=== PATIENT | male | born 1950 | race Caucasian/White ===

== ENCOUNTER 2016-11-27 19:52 | Inpatient (IN) | payer OTHER ==
[2016-11-27 20:25] LABS: Hematocrit 45 % (42-52); Hemoglobin 15.5 g/dl (14.0-18.0); Mean Corpuscular HGB Conc 34 g/dl (31-36); Mean Corpuscular Hemoglobin 30 pg (27-31); Mean Corpuscular Volume 89 fL (80-94); Mean Platelet Volume 7 um3 (7.4-10.4); Red Blood Count 5.13 10^6/ul (4.0-5.4); Red Cell Distribution Width 15 % (10.5-15); White Blood Count 7.3 10^3/ul (3.5-10.8)
[2016-11-27 20:33] LABS: Urine Bilirubin Negative (Negative); Urine Glucose Negative (Negative); Urine Nitrite Negative (Negative)
[2016-11-27 20:42] LABS: ALT 22 U/L (7-52); AST 27 U/L (13-39); Albumin 4.7 g/dL (3.2-5.2); Alkaline Phosphatase 49 U/L (34-104); Anion Gap 10 mmol/L (2-11); BUN/Creatinine Ratio 9.1 (8-20); Blood Urea Nitrogen 7 mg/dL (6-24); CO2 Carbon Dioxide 24 mmol/L (22-32); Calcium 9.6 mg/dL (8.6-10.3); Chloride 103 mmol/L (101-111); EGFR African American 130.8 (>60); EGFR Non-African American 101.7 (>60); Globulin 3.5 g/dL (2-4); Glucose 107 mg/dL (70-100); Potassium 3.8 mmol/L (3.5-5.0); Sodium 137 mmol/L (133-145); Total Protein 8.2 g/dL (6.4-8.9)
[2016-11-27] MEDS ORDERED: Ibuprofen TAB* 600 MG PO ONE (20:46)
[2016-11-27 20:48] LABS: Benzodiazepine Urine Screen Presumptive Positive (None Detect)
[2016-11-27 21:03] LABS: Acetaminophen < 15 mcg/mL; Alcohol 253 mg/dL (<10); Salicylate < 2.50 mg/dL (<30)
--- NOTE | 2016-11-27 22:59 | ED ---
Chandrika Davis Janilya, scribed for Bertrand Ennis MD on 11/27/16 at 2010 . Altered Mental Status - HPI Summary HPI Summary: A 66 y/o male came in to [facility] [place] [place] c/o depression and EtOH abuse. Pt states he had more than normal amount of EtOH today. He does admit he is an alcoholic, however he does not use any other substances. In addition, pt reports pain in lower back. - History Of Current Complaint Chief Complaint: EDMentalHealth Stated Complaint: LEG PAIN AND DEPRESSION Time Seen by Provider: 11/27/16 19:57 Hx Obtained From: Patient Timing: Constant, Lasting Hours Severity Initially: Moderate Severity Currently: Moderate Aggravating Factor(s): Nothing Alleviating Factor(s): Nothing - Allergies/Home Medications Allergies/Adverse Reactions: Allergies Allergy/AdvReac Type Severity Reaction Status Date / Time Acamprosate [From Campral] Allergy See Comment Verified 06/20/16 05:09 PMH/Surg Hx/FS Hx/Imm Hx Previously Healthy: Yes GI History: Reports: Other GI Disorders - Pt reports periods of incontinence, especially when withdrawing from alcoho Musculoskeletal History: Reports: Hx Arthritis - PER PT REPORT TO RIGHT LEG/KNEE Denies: Hx Osteoporosis Sensory History: Reports: Hx Cataracts, Hx Contacts or Glasses, Other Sensory Impairments - both eyes with lens implants Opthamlomology History: Reports: Hx Cataracts, Hx Contacts or Glasses, Other Sensory Impairments - both eyes with lens implants Psychiatric History: Reports: Hx Anxiety, Hx Depression, Hx Inpatient Treatment , Hx Community Mental Health Tx, Hx Suicide Attempt, Hx Substance Abuse Denies: Hx Eating Disorder, Hx of Violent Episodes Against Others - Surgical History Surgery Procedure, Year, and Place: Cataract x 2 - Family History Known Family History: Positive: Other - Anxiety, depression, EtOH abuse Family History: Hx of EtOH in family. - Social History Alcohol Use: Daily Alcohol Amount: 9 beer today Hx Substance Use: No Substance Use Type: Reports: None Substance Use Comment - Amount & Last Used: Pt is a chronic alcoholic Hx Tobacco Use: No Smoking Status (MU): Never Smoked Tobacco Review of Systems Positive: Arthralgia - lower back pain , Myalgia - lower back pain All Other Systems Reviewed And Are Negative: Yes Physical Exam Triage Information Reviewed: Yes Vital Signs On Initial Exam: Vital Signs (72 hours) 11/27/16 20:00 Temperature 98.2 F Pulse Rate 106 Respiratory 16 Rate Blood Pressure 154/77 (mmHg) O2 Sat by Pulse 94 Oximetry Vital Signs Reviewed: Yes Appearance: Positive: Well-Appearing, No Pain Distress Skin: Positive: Warm, Skin Color Reflects Adequate Perfusion, Dry Head/Face: Positive: Normal Head/Face Inspection Eyes: Positive: EOMI, SAMIR ENT: Positive: Normal ENT inspection Neck: Positive: Supple, Nontender Respiratory/Lung Sounds: Positive: Clear to Auscultation, Breath Sounds Present Cardiovascular: Positive: RRR Abdomen Description: Positive: Nontender, Soft Bowel Sounds: Positive: Present Musculoskeletal: Positive: Normal, Strength/ROM Intact Neurological: Positive: Normal, Sensory/Motor Intact, Alert, Oriented to Person Place, Time Psychiatric: Positive: Other - stuporous Diagnostics - Vital Signs Vital Signs Temp Pulse Resp BP Pulse Ox 11/27/16 20:00 98.2 F 106 16 154/77 94 - Laboratory Lab Results: Lab Results 11/27/16 11/27/16 11/27/16 Range/Units 20:15 20:15 20:20 WBC 7.3 (3.5-10.8) 10^3/ul RBC 5.13 (4.0-5.4) 10^6/ul Hgb 15.5 (14.0-18.0) g/dl Hct 45 (42-52) % MCV 89 (80-94) fL MCH 30 (27-31) pg MCHC 34 (31-36) g/dl RDW 15 (10.5-15) % Plt Count 269 (150-450) 10^3/ul MPV 7 L (7.4-10.4) um3 Neut % (Auto) 69.7 (38-83) % Lymph % (Auto) 20.6 L (25-47) % [place] % (Auto) 8.0 (1-9) % Eos % (Auto) 0.8 (0-6) % Baso % (Auto) 0.9 (0-2) % Absolute Neuts (auto) 5.1 (1.5-7.7) 10^3/ul Absolute Lymphs (auto) 1.5 (1.0-4.8) 10^3/ul Absolute Monos (auto) 0.6 (0-0.8) 10^3/ul Absolute Eos (auto) 0.1 (0-0.6) 10^3/ul Absolute Basos (auto) 0.1 (0-0.2) 10^3/ul Absolute Nucleated RBC 0 10^3/ul Nucleated RBC % 0.1 Sodium 137 (133-145) mmol/L Potassium 3.8 (3.5-5.0) mmol/L Chloride 103 (101-111) mmol/L Carbon Dioxide 24 (22-32) mmol/L Anion Gap 10 (2-11) mmol/L BUN 7 (6-24) mg/dL Creatinine 0.77 (0.67-1.17) mg/dL Est GFR ( Amer) 130.8 (>60) Est GFR (Non-Af Amer) 101.7 (>60) BUN/Creatinine Ratio 9.1 (8-20) Glucose 107 H (70-100) mg/dL Calcium 9.6 (8.6-10.3) mg/dL Total Bilirubin 0.40 (0.2-1.0) mg/dL AST 27 (13-39) U/L ALT 22 (7-52) U/L Alkaline Phosphatase 49 (34-104) U/L Total Protein 8.2 (6.4-8.9) g/dL Albumin 4.7 (3.2-5.2) g/dL Globulin 3.5 (2-4) g/dL Albumin/Globulin Ratio 1.3 (1-3) TSH 1.90 (0.34-5.60) mcIU/mL Urine Color Straw Urine Appearance Clear Urine pH 5.0 (5-9) Ur Specific [place] 1.001 L (1.010-1.030) Urine Protein Negative (Negative) Urine Ketones Negative (Negative) Urine Blood Negative (Negative) Urine Nitrate Negative (Negative) Urine Bilirubin Negative (Negative) Urine Urobilinogen Negative (Negative) Ur Leukocyte Esterase Negative (Negative) Urine Glucose Negative (Negative) Salicylates < 2.50 (<30) mg/dL Urine Opiates Screen (None Detect) Acetaminophen < 15 mcg/mL Ur Barbiturates Screen (None Detect) Ur Phencyclidine Scrn (None Detect) Ur Amphetamines Screen (None Detect) U Benzodiazepines Scrn (None Detect) Urine Cocaine Screen (None Detect) U Cannabinoids Screen (None Detect) Serum Alcohol 253 H (<10) mg/dL 02/15/17 Range/Units 20:20 WBC (3.5-10.8) 10^3/ul RBC (4.0-5.4) 10^6/ul Hgb (14.0-18.0) g/dl Hct (42-52) % MCV (80-94) fL MCH (27-31) pg MCHC (31-36) g/dl RDW (10.5-15) % Plt Count (150-450) 10^3/ul MPV (7.4-10.4) um3 Neut % (Auto) (38-83) % Lymph % (Auto) (25-47) % [place] % (Auto) (1-9) % Eos % (Auto) (0-6) % Baso % (Auto) (0-2) % Absolute Neuts (auto) (1.5-7.7) 10^3/ul Absolute Lymphs (auto) (1.0-4.8) 10^3/ul Absolute Monos (auto) (0-0.8) 10^3/ul Absolute Eos (auto) (0-0.6) 10^3/ul Absolute Basos (auto) (0-0.2) 10^3/ul Absolute Nucleated RBC 10^3/ul Nucleated RBC % Sodium (133-145) mmol/L Potassium (3.5-5.0) mmol/L Chloride (101-111) mmol/L Carbon Dioxide (22-32) mmol/L Anion Gap (2-11) mmol/L BUN (6-24) mg/dL Creatinine (0.67-1.17) mg/dL Est GFR ( Amer) (>60) Est GFR (Non-Af Amer) (>60) BUN/Creatinine Ratio (8-20) Glucose (70-100) mg/dL Calcium (8.6-10.3) mg/dL Total Bilirubin (0.2-1.0) mg/dL AST (13-39) U/L ALT (7-52) U/L Alkaline Phosphatase (34-104) U/L Total Protein (6.4-8.9) g/dL Albumin (3.2-5.2) g/dL Globulin (2-4) g/dL Albumin/Globulin Ratio (1-3) TSH (0.34-5.60) mcIU/mL Urine Color Urine Appearance Urine pH (5-9) Ur Specific [place] (1.010-1.030) Urine Protein (Negative) Urine Ketones (Negative) Urine Blood (Negative) Urine Nitrate (Negative) Urine Bilirubin (Negative) Urine Urobilinogen (Negative) Ur Leukocyte Esterase (Negative) Urine Glucose (Negative) Salicylates (<30) mg/dL Urine Opiates Screen None detected (None Detect) Acetaminophen mcg/mL Ur Barbiturates Screen None detected (None Detect) Ur Phencyclidine Scrn None detected (None Detect) Ur Amphetamines Screen None detected (None Detect) U Benzodiazepines Scrn Presumptive positive H (None Detect) Urine Cocaine Screen None detected (None Detect) U Cannabinoids Screen None detected (None Detect) Serum Alcohol (<10) mg/dL Result Diagrams: 11/27/16 20:15 11/27/16 20:15 Lab Statement: Any lab studies that have been ordered have been reviewed, and results considered in the medical decision making process. Altered Mental Statu Course/Dx - Course Assessment/Plan: STABLE IN ED. MHE PENDING AT SHIFT CHANGE. - Diagnoses Discharge Diagnoses: Mental health problem, Alcohol intoxication, Sciatica Discharge - Discharge Plan Condition: Stable Disposition: OTHER Discharge Disposition Comment: C The documentation as recorded by the Chandrika harris Janilya accurately reflects the service I personally performed and the decisions made by me, Bertrand Ennis MD.
[2016-11-28] MEDS ORDERED: Al Hydrox/Mg Hydrox/Simet LIQ* 30 ML UDC PO PRN (11:28)
[2016-11-28] MEDS ORDERED: Nicotine Inhaler* 10 MG AMP INH PRN (11:28)
[2016-11-28] MEDS ORDERED: Nicotine GUM* 2 MG PO PRN (11:28)
[2016-11-28] MEDS ORDERED: hydrOXYzine HCL TAB* 50 MG PO PRN (11:30)
--- NOTE | 2016-11-28 11:51 | ED ---
Supriya Davis Matthew, scribed for Sean Franklin MD on 11/28/16 at 0951 . Progress - Progress Note Progress Note: The patient was a sign out from Dr. Ennis. Voluntary admission paperwork was signed for the patient. He is in stable condition and will be admitted to [facility]. - Consult/PCP Time Called: 07:00 Course/Dx - Diagnoses Provider Diagnoses: mood disorder due to substance abuse The documentation as recorded by the Supriya harris Matthew accurately reflects the service I personally performed and the decisions made by , Sean Franklin MD.
[2016-11-28] MEDS ORDERED: LORazepam TAB(*) 1 MG PO ONE (12:44)
[2016-11-29] MEDS: Acetaminophen TAB* 325 MG PO PRN (08:11)
[2016-11-29] MEDS: Vitamin THERAPEUTIC TAB PO SCH (08:11)
[2016-11-29] MEDS ORDERED: Analgesic BALM* 114 GM TOPICAL PRN (14:44)
--- NOTE | 2016-11-29 15:17 | HP ---
DATE OF ADMISSION: 11/28/2016. JUSTIFICATION FOR ADMISSION: The patient is in need of 24 hour supervision and care secondary to suicidal ideations endorsed within 72 hours of admission date. CHIEF COMPLAINT: "I relapsed after a couple months sober and I need to go to a program in [place]." HISTORY OF PRESENT ILLNESS: The patient is a 66-year-old, single, white male with a history of chronic alcohol abuse who has had several admissions here at [facility] on our Behavioral Health Service who now returns to the hospital voluntarily seeking admission secondary to suicidal ideations. The patient indicates that he came to the hospital on a 9.41 status after presenting to the [facility] and stating that he had thoughts of drinking a bottle of alcohol and "going to sleep by [facility]." He has a history of multiple hospitalizations at [facility] as a result of suicidal ideation, all in the context of alcohol abuse. He apparently relapsed within the last week and had been drinking heavily and felt despondent, that he wanted to end his life. He was asking for admission due to not feeling stable and he felt like if he was discharge he would go back to drinking, and when he drinks he becomes suicidal. The patient is telling me at this point that he feels that this hospitalization will be short-term because he has found a program in [place] called the [facility] which can get him hooked up with [facility] as well as substance abuse treatment programming. He is complaining of pain in his leg due to a pinched nerve, but other than that he is calm, cooperative and demonstrating no behavioral problems. I did ask him about neurovegetative signs and symptoms of depression which he is currently denying. PAST PSYCHIATRIC HISTORY: The patient has several hospitalizations here at [facility], the most recent occurring in early July of 2016. He has never made a formal suicidal attempt according to the documentation. He has had over 15 admissions to our facility, as well as to other facilities in the [facility]. Apparently he has never maintained any consistent outpatient treatment. Medication management in the past has been with Celexa, Campral, and Antabuse; however, he is declining medication at this time. PAST MEDICAL HISTORY: Significant for arthritis and sciatic nerve pain. MEDICATIONS: Currently he is not on any medications. ALLERGIES: He states that he is ALLERGIC TO ACAMPROSATE. FAMILY PSYCHIATRIC HISTORY: Significant for substance abuse. No suicides or other mental disorders. SUBSTANCE USE HISTORY: Alcohol is the drug of his choice and this has been chronic. He started to drink at the age of 18 and it became a problem in his 20s with heavy drinking by the age of 32. This is essentially a daily activity when he has relapsed and he has had multiple brief medical hospitalizations for detoxification over the years. He has had negative consequences to drinking, including DWI, along with extensive psychosocial deterioration. He has had multiple formal inpatient rehabs and has been in residential sober settings several times over the years. His longest period of sobriety was approximately 13 months in the . When withdrawing from alcohol, he does have problems with seizures as well as delirium tremens. He denies the use of other drugs or illicit substances. He denies smoking cigarettes. SOCIAL HISTORY: Mr. Duran is originally from [place]. He has a brother and two sisters. Both of his parents are . He previously identified as upper middle class, but has been homeless and fairly destitute. His brother and sisters in the past were supportive. Growing up he played sports and developed normally, and he has had significant interpersonal relationships with friends and other relations. He identifies as heterosexual, but never and has no children. He has received unemployment benefits in the past. REVIEW OF SYSTEMS: The patient is denying any symptoms of acute alcohol withdrawal, saying he had only relapsed for a brief time before arriving for treatment. He denies headache or double vision. He denies sore throat, cough, chest pain, difficulty breathing. He denies abdominal pain, nausea, vomiting, or constipation. He denies difficulty ambulating, rashes, enlarged lymph nodes , fevers, or changes in weight. He does complain of back pain from sciatica. PHYSICAL EXAMINATION VITAL SIGNS: Blood pressure 111/75, heart rate 81, respiratory rate 16, temperature 98.5 degrees Fahrenheit, oxygen saturation 99 percent on room air. HEENT: Head is normocephalic, atraumatic. NECK: Supple. CHEST: Clear to auscultation bilaterally. CARDIAC: Exam reveals normal heart sounds. ABDOMEN: Soft and nontender. SKIN: Warm and dry. MUSCULOSKELETAL: Exam reveals no sign of edema. NEUROLOGIC: He is grossly intact with no focal deficits. LABORATORY DATA: Complete blood count is within normal limits as is the complete metabolic panel. Urinalysis is within normal limits. Urine drug screen is positive for benzodiazepines. His alcohol level on intact was 253. MENTAL STATUS EXAM: The patient is an aging white male with white hair. He is wearing green patient scrubs. He walks with a limp. He is clean and well- groomed. Speech has normal rate, tone and volume. Mood is euthymic with a full affect. Thought process is linear and goal directed. Thought content is significant for his desire to come into the hospital until he can be placed in a residential program on Friday at a facility in [place]. He is currently denying suicidal or homicidal ideations, although he endorsed them at the time of his intake in our emergency room. Insight and judgment are poor given his frequent relapses on alcohol. Cognitively, he is awake and alert with what would appear to be an average intellect. DIAGNOSES: AXIS I: Alcohol-induced mood disorder; alcohol use disorder. AXIS II: Deferred. AXIS III: Arthritis, sciatic nerve pain. AXIS IV: Severe, housing and financial stressors. AXIS V: At this time is 45. IMPRESSION: The patient is a 66-year-old, single, white male with a history of chronic alcohol dependence as well as alcohol-induced mood disorder who arrives complaining of depression and suicidality, and stating that he would not be safe if discharged from the hospital. He certainly does not appear to be depressed at this time and he is telling me that he has a place to go on Friday and would be expecting discharge at that time. It should be noted that malingering cannot be ruled out in this instance. PLAN: The patient is admitted to the Adult Behavioral Health Unit and placed on q.30 minute checks for his own safety. The patient will not need the WA protocol given the fact that his relapse has been very brief and his vitals look normal at this point. I will have the licensed clinical social worker delve into his housing arrangements and see that he gets hooked in with services in [place], which is what he is seeking at this time. I do not see the rationale for any medication strategies at this time as the patient mostly needs substance abuse treatment on an ongoing basis and a safe place to live. [id number]/[facility] #: [id number] PENNY
[2016-11-30] MEDS: Acetaminophen TAB* 325 MG PO PRN (10:10)
[2016-11-30] MEDS: Vitamin THERAPEUTIC TAB PO SCH (10:10)
[2016-12-01] MEDS: Vitamin THERAPEUTIC TAB PO SCH (08:29)
[2016-12-01] MEDS: Acetaminophen TAB* 325 MG PO PRN (17:07)
--- NOTE | 2016-12-01 20:20 | PN ---
Subjective - Subjective Subjective: Kayce endorses low distress level, improvements in previous mood and withdrawal symptoms, including anxiety. He denies suicidal ideation and he contracts for safety. He looks forward to return to the sober residential program in [place]. Per staff, he is adherent to unit's routines. Patient told there are two patients on the unit (did not disclose their names) who have tested positive for Influenza A and I am recommending taking Tamiflu as a prophylactic measure. I made it clear this was optional. He agreed to the treatment after hearing of the indications, risks, benefits and alternatives. Objective - Appearance Appearance: Obese Dysmorphic Features: No Hygiene: Normal Grooming: Well Kept - Behavior Psychomotor Activities: Normal Exhibits Abnormal Movement: No - Attitude and Relatedness Attitude and Relatedness: Cooperative Eye Contact: Good - Speech Quality: Unpressured Latencies: Normal Quantity: Appropriate - Mood Patient's Decription of Mood: better - Affect Observed Affect: Constricted Affect Consistent with: Dysphoria - Thought Process Patient's Thought Process: Coherent, Goal Directed Thought Content: No Passive Wish, No Suicidal Planning, No Homicidal Ideation, No Paranoid Ideation - Sensorium Experiencing Hallucinations: No, Sensorium is Clear - Level of Consciousness Level of Consciousness: Alert Orientation: Yes Intact - Impulse Control Impulse Control: Intact - Insight and Judgement Insight and Judgement: Fair - Group Participation Particating in Group Activities: Yes - Medication Management Medication Management Adherence: Yes Assessment - Assessment Merits Inpatient Hospitalization: Consolidate Improvements, For Discharge Planning Inpatient DSM-IV Dx: Alcxohol use disorder, severe. Clinical Impression: Progressing well through detoxification, remains motivated for sobriety, denying suicidality. Plan - Plan Treatment Plan: Name: KAYCE ORTEGA Birthdate: 1950 [id number] Continued Medication Management: Continue Outpt Medication Medications: Current Medications Acetaminophen (Tylenol Tab*) 650 mg PO Q4H PRN PRN Reason: for pain; or Temp >101 F Last Admin: 12/01/16 17:07 Dose: 650 mg Al Hydrox/Mg Hydrox/Simethicone (Maalox Plus*) 30 ml PO Q4H PRN PRN Reason: INDIGESTION Hydroxyzine HCl (Atarax Tab*) 50 mg PO Q6H PRN PRN Reason: AGITATION/ANXIETY/INSOMNIA Multi-Ingredient Liniment/Rub (Manohar Murphy*) 1 applic TOPICAL TID PRN PRN Reason: PAIN Multivitamins (Theragran Tab*) 1 tab PO DAILY YAS Last Admin: 12/01/16 08:29 Dose: 1 tab - Discharge Plan Discharge Plan: Drug/Alcohol Rehab - Sober living residential facility in [place].
[2016-12-02 07:36] VITALS: BP 138/82
[2016-12-02] MEDS: Acetaminophen TAB* 325 MG PO PRN (08:21)
[2016-12-02] MEDS: Vitamin THERAPEUTIC TAB PO SCH (08:21)
[2016-12-02] MEDS ORDERED: Oseltamivir CAP* 75 MG PO SCH (09:00)
--- NOTE | 2016-12-02 12:03 | DS ---
DATE OF ADMISSION: 11/28/2016. DATE OF DISCHARGE: 12/02/2016. DISCHARGE DIAGNOSES: AXIS I: Alcohol-induced mood disorder; alcohol use disorder. AXIS II: Deferred. AXIS III: Arthritis, sciatica nerve pain. AXIS IV: Severe, housing and financial stressors. AXIS V: At the time of admission was 45 and at the time of discharge is 60. CONDITION AT THE TIME OF DISCHARGE: Stable. The patient is denying suicidal ideations as he has done so for several days now. He is also denying thoughts or harming others. He is now sober from alcohol and intending to continue to abstain from this substance. Furthermore, we have hooked him up with residential treatment services at the [facility] in [place], [place]. There he will be receiving case management from [facility], as well as psychiatric and substance abuse rehabilitation services. The patient is future oriented, indicating that he wants to continue his life, move to [place] and establish a longer period of sobriety. MENTAL STATUS EXAMINATION AT THE TIME OF DISCHARGE: The patient is an aging white male with balding white hair. He is wearing green patient scrubs, walking with a slight limp. He is clean and well-groomed. Speech has a normal rate, tone and volume. Mood is euthymic with a full affect. Thought process is linear and goal directed. Thought content is significant for his desire to be discharged from the hospital. He is denying suicidal or homicidal ideations. Insight and judgment are fair given his willingness to follow-up with outpatient substance abuse treatment. Cognitively, he is awake and alert with what would appear to be an average intellect. DISCHARGE INSTRUCTIONS TO THE PATIENT: A. Medications: The patient is on Tamiflu 75 mg p.o. daily for the next ten days and then he will discontinue this. B. Diet: Regular. C. Activities: As tolerated. The patient is a nonsmoker. D. Follow-up care: The patient is to follow-up at the [facility]. His intake will be there this afternoon, 12/02/2016. HOSPITAL COURSE - PART A: Reason for admission: The patient is a 66-year-old, single, white male with a history of chronic alcohol abuse who has had several admissions here at [facility] to our behavioral health service who now returns to the hospital voluntarily seeking admission secondary to suicidal ideations. The patient indicates that he came to the hospital on a 9.41 status after presenting to the [facility] and stating that he had thoughts of drinking a bottle of alcohol and "going to sleep by [facility]." He has a history of multiple hospitalizations at [facility] as a result of suicidal ideation, all in the context of alcohol abuse. He apparently relapsed within the last week and had been drinking heavily and felt despondent that he wanted to end his life. He was asking for admission due to not feeling stable and he felt like if he was discharged, he would go back to drinking and when he drinks he becomes suicidal. The patient was telling me at that point that he felt that hospitalization would be short-term because he had found a program in [place] called the [facility] which can get him hooked up with [facility], as well as substance abuse treatment programming. He was complaining of pain in his leg due to a pinched nerve, but other than this he was calm, cooperative, and demonstrating no behavioral problems. I did ask him about neurovegetative signs and symptoms of depression, which he is currently denying. HOSPITAL COURSE - PART B: Psychiatric treatment rendered: The patient was admitted to the Adult Behavioral Health Unit and placed on q.30 minute checks for his own safety. Other than some topical treatment with Bengay for pain his legs, he did not require medication therapy and we did not feel that his depression was likely amenable to antidepressants, largely because it was a byproduct of his substance abuse. Later, the patient had an exposure to a peer was found to have influenza. For this reason he accepted prophylactic Tamiflu at the dose of 75 mg daily. We were able to contact the [facility] and they confirmed that he has a scheduled intake for December 02. He remained free of suicidal ideations over the weekend and is now discharged in stable condition. Throughout his stay he never represented any behavioral problems on the unit. [id number]/[facility] #: [id number] PENNY
== END 2016-12-02 13:00 | disposition home or self-care (01) | DRG 775 ==
LOC: ED 19:52 → BSU 11-28 14:06
PROVIDERS: ADMIT Psychiatry & Neurology Psychiatry; ATTEND Psychiatry & Neurology Psychiatry
DX: F10.14 Alcohol abuse with alcohol-induced mood disorder (principal); R45.851 Suicidal ideations; F10.129 Alcohol abuse with intoxication, unspecified; M54.5 Low back pain; M79.606 Pain in leg, unspecified; Y90.8 Blood alcohol level of 240 mg/100 ml or more; M19.90 Unspecified osteoarthritis, unspecified site; M54.30 Sciatica, unspecified side; Z88.8 Allergy status to other drugs, medicaments and biological substances; Z81.1 Family history of alcohol abuse and dependence
CPT/HCPCS: 36415; 80053; 80307; 80320; 80329; 81003; 84443; 85025; 99222; 99238; 99282; A9270-GY; G0480

== ENCOUNTER 2017-03-08 20:13 | Inpatient (IN) | payer MEDICAID, OTHER ==
[2017-03-08 20:56] LABS: Hematocrit 43 % (42-52); Hemoglobin 14.3 g/dl (14.0-18.0); Mean Corpuscular HGB Conc 34 g/dl (31-36); Mean Corpuscular Hemoglobin 30 pg (27-31); Mean Corpuscular Volume 89 fL (80-94); Mean Platelet Volume 7 um3 (7.4-10.4); Red Blood Count 4.77 10^6/ul (4.0-5.4); Red Cell Distribution Width 14 % (10.5-15); White Blood Count 5.3 10^3/ul (3.5-10.8)
[2017-03-08 21:00] LABS: Urine Bilirubin Negative (Negative); Urine Glucose Negative (Negative); Urine Nitrite Negative (Negative)
[2017-03-08 21:09] LABS: ALT 17 U/L (7-52); AST 22 U/L (13-39); Albumin 4.4 g/dL (3.2-5.2); Alkaline Phosphatase 40 U/L (34-104); Anion Gap 11 mmol/L (2-11); BUN/Creatinine Ratio 9.5 (8-20); Blood Urea Nitrogen 7 mg/dL (6-24); CO2 Carbon Dioxide 19 mmol/L (22-32); Calcium 9.1 mg/dL (8.6-10.3); Chloride 102 mmol/L (101-111); EGFR African American 136.9 (>60); EGFR Non-African American 106.5 (>60); Globulin 3.2 g/dL (2-4); Glucose 90 mg/dL (70-100); Potassium 3.9 mmol/L (3.5-5.0); Sodium 132 mmol/L (133-145); Total Protein 7.6 g/dL (6.4-8.9)
[2017-03-08 21:17] LABS: Benzodiazepine Urine Screen None Detected (None Detect)
[2017-03-08 21:39] LABS: Acetaminophen < 15 mcg/mL; Alcohol 217 mg/dL (<10); Salicylate < 2.50 mg/dL (<30)
--- NOTE | 2017-03-08 21:46 | ED ---
Kannan Davsi SooYoung, scribed for Balaji Potts MD on 03/08/17 at 2043 . Psychiatric Complaint - HPI Summary HPI Summary: A 66 y/o M SAGAR presents to ED with SI onset today. Pt states he is on a new medication, and he's feeling unstable. He has been drinking a lot today. Pt wants help, to go to rehab. Pert PMHx: suicide attempt, depression, EtOH abuse. - History Of Current Complaint Chief Complaint: EDMentalHealth Time Seen by Provider: 03/08/17 20:21 Hx Obtained From: Patient, EMS Onset/Duration: Still Present Timing: Constant Severity Initially: Moderate Severity Currently: Moderate Aggravating Factor(s): Alcohol Use Related History: Positive For: Prior Psychiatric Issues Has Suicidal: Reports: Thoughts - Allergies/Home Medications Allergies/Adverse Reactions: Allergies Allergy/AdvReac Type Severity Reaction Status Date / Time Acamprosate [From Campral] Allergy See Comment Verified 06/20/16 05:09 Home Medications: Home Medications Acetaminophen TAB* [Tylenol TAB*] 650 mg PO Q4H PRN 03/09/17 [History Confirmed 03/09/17] Amlodipine Besylate [Norvasc 10 mg tab] 10 mg PO DAILY 03/09/17 [History Confirmed 03/09/17] Folic Acid TAB* [Folvite TAB*] 1 mg PO DAILY 03/09/17 [History Confirmed ] Gabapentin CAP(*) [Neurontin 100 mg CAP(*)] 200 mg PO TID 03/09/17 [History Confirmed 03/09/17] Ibuprofen TAB* [Motrin TAB* 800 MG] 800 mg PO TID 03/09/17 [History Confirmed ] Thiamine TAB* [Vitamin B-1 TAB*] 100 mg PO DAILY 03/09/17 [History Confirmed ] PMH/Surg Hx/FS Hx/Imm Hx Previously Healthy: No GI History: Reports: Other GI Disorders - Pt reports periods of incontinence, especially when withdrawing from alcoho Musculoskeletal History: Reports: Hx Arthritis - PER PT REPORT TO RIGHT LEG/KNEE Denies: Hx Osteoporosis Sensory History: Reports: Hx Cataracts, Hx Contacts or Glasses, Other Sensory Impairments - both eyes with lens implants Opthamlomology History: Reports: Hx Cataracts, Hx Contacts or Glasses, Other Sensory Impairments - both eyes with lens implants Psychiatric History: Reports: Hx Anxiety, Hx Depression, Hx Inpatient Treatment , Hx Community Mental Health Tx, Hx Suicide Attempt, Hx Substance Abuse Denies: Hx Eating Disorder, Hx of Violent Episodes Against Others - Surgical History Surgery Procedure, Year, and Place: Cataract x 2 Infectious Disease History: No Infectious Disease History: Denies: Traveled Outside the [place] in Last 30 Days - Family History Known Family History: Positive: Other - Anxiety, depression, EtOH abuse Family History: Hx of EtOH in family. - Social History Occupation: Unemployed Lives: Alone Alcohol Use: Daily Alcohol Amount: 18 coors lights since this AM Hx Substance Use: No Substance Use Type: Reports: None Substance Use Comment - Amount & Last Used: Pt is a chronic alcoholic Hx Tobacco Use: No Smoking Status (MU): Never Smoked Tobacco Review of Systems Negative: Fever Psychological: Other - pos: SI Positive: Depressed All Other Systems Reviewed And Are Negative: Yes Physical Exam Triage Information Reviewed: Yes Vital Signs On Initial Exam: Initial Vitals Temp Pulse Resp BP Pulse Ox 99.2 F 89 18 176/92 95 03/08/17 20:25 03/08/17 20:25 03/08/17 20:25 03/08/17 20:25 03/08/17 20:25 Vital Signs Reviewed: Yes Appearance: Positive: Well-Appearing, No Pain Distress - aob Skin: Positive: Warm Head/Face: Positive: Normal Head/Face Inspection Eyes: Positive: SAMIR ENT: Positive: Hearing grossly normal Neck: Positive: Supple Respiratory/Lung Sounds: Positive: Breath Sounds Present Cardiovascular: Positive: RRR Abdomen Description: Positive: Nontender, Soft Bowel Sounds: Positive: Present Musculoskeletal: Positive: Strength/ROM Intact Neurological: Positive: Alert, Oriented to Person Place, Time Psychiatric: Positive: Affect/Mood Appropriate - Sharon Coma Scale Coma Scale Total: 15 Diagnostics - Vital Signs Vital Signs Temp Pulse Resp BP Pulse Ox 03/08/17 20:25 99.2 F 89 18 176/92 95 - Laboratory Lab Results: Lab Results 03/08/17 03/08/17 03/08/17 Range/Units 20:45 20:45 20:50 WBC 5.3 (3.5-10.8) 10^3/ul RBC 4.77 (4.0-5.4) 10^6/ul Hgb 14.3 (14.0-18.0) g/dl Hct 43 (42-52) % MCV 89 (80-94) fL MCH 30 (27-31) pg MCHC 34 (31-36) g/dl RDW 14 (10.5-15) % Plt Count 257 (150-450) 10^3/ul MPV 7 L (7.4-10.4) um3 Neut % (Auto) 60.2 (38-83) % Lymph % (Auto) 27.6 (25-47) % Childress % (Auto) 9.2 H (1-9) % Eos % (Auto) 2.0 (0-6) % Baso % (Auto) 1.0 (0-2) % Absolute Neuts (auto) 3.2 (1.5-7.7) 10^3/ul Absolute Lymphs (auto) 1.5 (1.0-4.8) 10^3/ul Absolute Monos (auto) 0.5 (0-0.8) 10^3/ul Absolute Eos (auto) 0.1 (0-0.6) 10^3/ul Absolute Basos (auto) 0.1 (0-0.2) 10^3/ul Absolute Nucleated RBC 0 10^3/ul Nucleated RBC % 0 Sodium 132 L (133-145) mmol/L Potassium 3.9 (3.5-5.0) mmol/L Chloride 102 (101-111) mmol/L Carbon Dioxide 19 L (22-32) mmol/L Anion Gap 11 (2-11) mmol/L BUN 7 (6-24) mg/dL Creatinine 0.74 (0.67-1.17) mg/dL Est GFR ( Amer) 136.9 (>60) Est GFR (Non-Af Amer) 106.5 (>60) BUN/Creatinine Ratio 9.5 (8-20) Glucose 90 (70-100) mg/dL Calcium 9.1 (8.6-10.3) mg/dL Total Bilirubin 0.40 (0.2-1.0) mg/dL AST 22 (13-39) U/L ALT 17 (7-52) U/L Alkaline Phosphatase 40 (34-104) U/L Total Protein 7.6 (6.4-8.9) g/dL Albumin 4.4 (3.2-5.2) g/dL Globulin 3.2 (2-4) g/dL Albumin/Globulin Ratio 1.4 (1-3) TSH Pending Urine Color Straw Urine Appearance Clear Urine pH 5.0 (5-9) Ur Specific [place] 1.002 L (1.010-1.030) Urine Protein Negative (Negative) Urine Ketones Negative (Negative) Urine Blood Negative (Negative) Urine Nitrate Negative (Negative) Urine Bilirubin Negative (Negative) Urine Urobilinogen Negative (Negative) Ur Leukocyte Esterase Negative (Negative) Urine Glucose Negative (Negative) Salicylates < 2.50 (<30) mg/dL Urine Opiates Screen (None Detect) Acetaminophen < 15 mcg/mL Ur Barbiturates Screen (None Detect) Ur Phencyclidine Scrn (None Detect) Ur Amphetamines Screen (None Detect) U Benzodiazepines Scrn (None Detect) Urine Cocaine Screen (None Detect) U Cannabinoids Screen (None Detect) Serum Alcohol 217 H (<10) mg/dL 03/08/17 Range/Units 20:50 WBC (3.5-10.8) 10^3/ul RBC (4.0-5.4) 10^6/ul Hgb (14.0-18.0) g/dl Hct (42-52) % MCV (80-94) fL MCH (27-31) pg MCHC (31-36) g/dl RDW (10.5-15) % Plt Count (150-450) 10^3/ul MPV (7.4-10.4) um3 Neut % (Auto) (38-83) % Lymph % (Auto) (25-47) % Childress % (Auto) (1-9) % Eos % (Auto) (0-6) % Baso % (Auto) (0-2) % Absolute Neuts (auto) (1.5-7.7) 10^3/ul Absolute Lymphs (auto) (1.0-4.8) 10^3/ul Absolute Monos (auto) (0-0.8) 10^3/ul Absolute Eos (auto) (0-0.6) 10^3/ul Absolute Basos (auto) (0-0.2) 10^3/ul Absolute Nucleated RBC 10^3/ul Nucleated RBC % Sodium (133-145) mmol/L Potassium (3.5-5.0) mmol/L Chloride (101-111) mmol/L Carbon Dioxide (22-32) mmol/L Anion Gap (2-11) mmol/L BUN (6-24) mg/dL Creatinine (0.67-1.17) mg/dL Est GFR ( Amer) (>60) Est GFR (Non-Af Amer) (>60) BUN/Creatinine Ratio (8-20) Glucose (70-100) mg/dL Calcium (8.6-10.3) mg/dL Total Bilirubin (0.2-1.0) mg/dL AST (13-39) U/L ALT (7-52) U/L Alkaline Phosphatase (34-104) U/L Total Protein (6.4-8.9) g/dL Albumin (3.2-5.2) g/dL Globulin (2-4) g/dL Albumin/Globulin Ratio (1-3) TSH Urine Color Urine Appearance Urine pH (5-9) Ur Specific [place] (1.010-1.030) Urine Protein (Negative) Urine Ketones (Negative) Urine Blood (Negative) Urine Nitrate (Negative) Urine Bilirubin (Negative) Urine Urobilinogen (Negative) Ur Leukocyte Esterase (Negative) Urine Glucose (Negative) Salicylates (<30) mg/dL Urine Opiates Screen None detected (None Detect) Acetaminophen mcg/mL Ur Barbiturates Screen None detected (None Detect) Ur Phencyclidine Scrn None detected (None Detect) Ur Amphetamines Screen None detected (None Detect) U Benzodiazepines Scrn None detected (None Detect) Urine Cocaine Screen None detected (None Detect) U Cannabinoids Screen None detected (None Detect) Serum Alcohol (<10) mg/dL Result Diagrams: 03/08/17 20:45 03/08/17 20:45 Lab Statement: Any lab studies that have been ordered have been reviewed, and results considered in the medical decision making process. Course/Dx - Course Course Of Treatment: UA is nml with specific gravity 1.002. Toxicology is negative, serum alcohol is 217. Medically cleared for MHE 0200. - Differential Dx/Clinical Impression Provider Diagnosis: Suicidal thoughts - Physician Notifications Instructed by Provider To: Admit As Inpatient Discharge - Discharge Plan Condition: Fair Disposition: ADMITTED TO [facility] documentation as recorded by the Kannan harris,Treag accurately reflects the service I personally performed and the decisions made by me, Balaji Potts MD.
[2017-03-08 21:49] LABS: TSH (Thyroid Stimulating Horm) 1.92 mcIU/mL (0.34-5.60)
[2017-03-09] MEDS ORDERED: Al Hydrox/Mg Hydrox/Simet LIQ* 30 ML UDC PO PRN (05:14)
[2017-03-09] MEDS ORDERED: Mouth Piece, Nicotine* 1 EACH CARTRIDGE INH SCH (05:14)
[2017-03-09] MEDS ORDERED: Nicotine Inhaler* 10 MG AMP INH PRN (05:14)
[2017-03-09] MEDS ORDERED: Acetaminophen TAB* 325 MG PO PRN (05:14)
[2017-03-09] MEDS: Thiamine TAB* 100 MG TAB PO SCH (07:37)
[2017-03-09] MEDS: amLODIPine TAB* 5 MG PO SCH (07:37)
[2017-03-09] MEDS: Ibuprofen TAB* 800 MG PO PRN (07:38)
[2017-03-09] MEDS: Gabapentin CAP(*) 100 MG PO SCH ×3 (07:38→20:02)
[2017-03-09] MEDS: Vitamin THERAPEUTIC TAB PO SCH (07:38)
[2017-03-09] MEDS: Folic Acid TAB* 1 MG PO SCH (07:38)
--- NOTE | 2017-03-09 14:19 | HP ---
Amended report to enter cosignature on report. INITIAL PSYCHIATRIC ASSESSMENT: The supervising psychiatrist for this assessment is . DATE OF ADMISSION: 03/09/17 IDENTIFYING INFORMATION: The patient is a 66-year-old white male who was admitted to this facility on 03/09/17. Admitting status is voluntary. The patient was seen and examined. The chart was reviewed and the case was discussed with Dr. Tobin who concurred with assessment and plan. The patient had presented to the emergency department with fleeting suicidal ideation. He stated that he had conjured a plan to overdose using his prescription Norvasc and consuming alcohol. He reports that he saw buttonhole tacker and revealed his plan to them. He had had a period of sobriety, but apparently began drinking approximately 8 days ago, this was after a period of approximately 3 months of sobriety per the patient's self report. He stated that there was a breakup in his family secondary to somebody who had and apparently in the will, he felt that was, as he stated, "gypped out of money." He stated that approximately 2 days ago, he began having very negative dreams and suicidal ideation came about. He reports that he has been masking his emotions and he has had a lot of anger at himself. He is currently denying alcohol withdrawal symptoms and stated that he usually does not have problems with DT after only 8 days of drinking. PAST PSYCHIATRIC HISTORY: This patient has a rather extensive history of hospitalizations here at [facility], most recent occurring in November of 2016. He has had over 16 admissions here. He has never actually made a formal suicide attempt per review of documentation. He has also been admitted to other facilities in the [facility] per the record of Dr. Edgar Lara in his history and physical dated 11/28/16. The patient has never maintained any type of consistent outpatient treatment. 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 MEDICATIONS: He is currently not on any psychotropic medications. ALLERGIES: There is mention of an allergy to ACAMPROSATE. However, it is not clear if this represents true allergy. FAMILY PSYCHIATRIC HISTORY: Significant for substance abuse on his mother and father's side. He states that he did have a grandfather who was at times ill- tempered toward others. SUBSTANCE USE HISTORY: Alcohol is the patient's primary addictive disorder. He began drinking approximately at age 18, stated that his drinking became a problem in his 20s with heavy drinking by the age of 32. 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 In the , he was arrested for a DWI. He also has a history of multiple inpatient rehabs as well as involvement with AA. His longest period of sobriety was apparently 13 months in the . In the past with alcohol withdrawal, however, he does have problems with seizures as well as delirium tremens. He currently denies use of any other illicit substances and he does not smoke cigarettes per self report. PSYCHOSOCIAL HISTORY: Mr. Duran is from [place]. He has 1 brother and 2 sisters. Both parents are . He reports that he is homeless at this point because the people who owned the house where he was staying apparently recently sold the house. He has never been . He has no children. He is retired. He does report having a small pension. 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 REVIEW OF SYSTEMS: The patient is currently denying any symptoms of alcohol withdrawal. No tremor noted. He again is asserting that he has only had a brief relapse 8 days prior to treatment. He denies headache, dizziness, syncope , changes in hearing or vision. Denies difficulty chewing or swallowing. Denies chest pain or palpitations. Denies nausea, vomiting, or diarrhea. Denies shortness of breath. Denies difficulty urinating. Denies numbness or tingling in the fingers or toes. Denies any pain anywhere. Review of laboratory data undertaken at this time, the following abnormals are noted. MPV is low at 7, monocyte percentage is elevated at 9.2. Chemistry studies demonstrate a low sodium of 132, carbon dioxide is low at 19. Urine specific gravity is low at 1.002, and urine toxicology demonstrated a serum alcohol level of 217. PHYSICAL EXAMINATION VITAL SIGNS: Cardiac rate is 75, blood pressure is 136/81. HEENT: Head is normocephalic, atraumatic. NECK: Appears normal on inspection. HEART: S1 and S2 are present. No rubs, gallops, or murmurs are grossly appreciated. ABDOMEN: Soft, nondistended, nontender. Bowel sounds are active in all 4 quadrants. MUSCULOSKELETAL: The patient demonstrates full range of motion. His extremities are nonedematous. NEUROLOGICALLY: He is alert and oriented x3 with no focal neuro deficits. SKIN: Intact, warm and dry. MENTAL STATUS EXAMINATION: The patient is of average build and appears his stated age with overall good grooming and hygiene noted. On gross examination, he appears to have no physical deformities. His attitude toward the examiner was pleasant and cooperative. He does ambulate with a steady gait. Posture fairly erect. He did not appear to be demonstrating any noteworthy mannerisms, gestures or tics. No circumoral tremor or hand tremor was appreciated. Activity patterns were within normal parameters with no overt evidence of psychomotor excitation or retardation appreciated. He is alert and oriented x3. Speech was clear, coherent, goal directed and spontaneous. He rarely made eye contact throughout the clinical interview. Self-reported mood is depressed. He rated his depression at the time of his admission yesterday as a 9/10 on the 1/10 scale, in which 10 represents the most depressed he has ever felt. He is self reporting his depression today as 5/10 on the 1/10 scale. His affect is consistent to self-reported mood. He is denying visual or auditory hallucinations. No overt delusion or paranoid thought processes readily apparent. Impulse control, of course, is problematic surrounding substance use. Intellectual ability, general fund of knowledge is roughly average. Concentration and attention appear grossly intact. The patient is currently denying suicidal and/or homicidal ideation. He is future oriented. CLINICAL IMPRESSION: This is a 66-year-old patient with a rather extensive history of alcohol use disorder, who had relapsed after a period of approximately 3 months of sobriety. He self reports feeling despondent over his relapse and had developed suicidal ideation. He was admitted on a voluntary basis for symptom stabilization. At this time, he is asking for rehab at either [facility] or [facility]. He has been admitted, of course, for stabilization of symptoms. ADMITTING DIAGNOSIS: Alcohol use disorder, rule out major depressive disorder, rule out generalized anxiety disorder. PLAN OF TREATMENT: Admit to behavior services unit. Diet will be regular. Vital signs per unit protocol. Activity as tolerated with restrictions to the unit. The patient will participate in treatment planning activities, individual , group, and milieu therapy, as well as medication management sessions and discharge planning until he is stable or referred to a higher level of care. TREATMENT GOAL: Stabilization. PROGNOSIS: Fair. ESTIMATED LENGTH OF STAY: 3 to 5 days. DISCHARGE CRITERIA: The patient will be discharged when he is no longer a risk to himself or others and has met the criteria set forth by the treatment team for discharge. This assessment was reviewed with, and initial plan of care established by Dr. Carpio. RICHIE RESENDIZ NP [id number]/[facility] #: [id number] PENNY
[2017-03-10] MEDS: Gabapentin CAP(*) 100 MG PO SCH ×3 (08:36→20:12)
[2017-03-10] MEDS: Vitamin THERAPEUTIC TAB PO SCH (08:36)
[2017-03-10] MEDS: Folic Acid TAB* 1 MG PO SCH (08:37)
[2017-03-10] MEDS: Thiamine TAB* 100 MG TAB PO SCH (08:37)
[2017-03-10] MEDS: amLODIPine TAB* 5 MG PO SCH (08:37)
--- NOTE | 2017-03-10 11:43 | PN ---
Subjective - Subjective Service Type: 28373 Hosp care 15 min low complexity Subjective: Kayce denies any withdrawal symptoms from alcohol, denies any continued suicidal ideation or other dangerous intent/plan, denies any psychotic experience, and denies any physical complaints/distress. He is looking forward to discharge to [facility] in [place] with rehab services from [facility], and medical follow ups for tate's cyst and other issues. He has these plans all clearly itemized on one page that he says he will review with social work staff on Friday. He request 30 minute checks and computer privileges to check email. Objective - Appearance Appearance: Healthy Appearing Dysmorphic Features: No Hygiene: Normal Grooming: Well Kept - Behavior Psychomotor Activities: Normal Exhibits Abnormal Movement: No - Attitude and Relatedness Attitude and Relatedness: Cooperative Eye Contact: Good - Speech Quality: Unpressured Latencies: Normal Quantity: Appropriate - Mood Patient's Decription of Mood: "A lot better - I'm coming out of the fog. - Affect Observed Affect: Good Affect Consistent with: Euthymia - Thought Process Patient's Thought Process: Coherent, Goal Directed Thought Content: No Passive Wish, No Suicidal Planning, No Homicidal Ideation, No Paranoid Ideation - Sensorium Experiencing Hallucinations: No, Sensorium is Clear Type of Hallucinations: Visual: No, Auditory: No, Command: No - Level of Consciousness Level of Consciousness: Alert Orientation: Yes Intact, Yes Orientated to Time, Yes Orientated to Place, Yes Orientated to Person - Impulse Control Impulse Control: Intact - Insight and Judgement Insight and Judgement: Fair - Group Participation Particating in Group Activities: Yes Group Participation Comments: attended AA - Medication Management Medication Management Adherence: Yes Assessment - Assessment Merits Inpatient Hospitalization: For Stabilization, Consolidate Improvements, For Discharge Planning Inpatient DSM-IV Dx: Alcohol Use Disorder, Severe. Rule out MDD, VITA Clinical Impression: Kayce Duran is a 66-year-old man who has been admitted for safety concerns raised by report in ED of plan to kill himself with Norvasc and alcohol. He is well known to us from many admissions here in the context of recalcitrant alcohol use disorder with reports of mood disturbance and suicidality. [facility] follow-up care in [place]. He does not want an antidepressant. He is group and med compliant. Plan - Plan Treatment Plan: Name: KAYCE DURAN Birthdate: 1950 [id number] Monitor MS and safety, including alcohol withdrawal symptoms (none so far, neither subjectively nor objectively, with VSS). Encourage groups and milieu. Plan toward discharge with planning offered by patient. Continued Medication Management: Continue Outpt Medication Medications: Current Medications Acetaminophen (Tylenol Tab*) 650 mg PO Q4H PRN PRN Reason: PAIN or TEMP > 101 F Al Hydrox/Mg Hydrox/Simethicone (Maalox Plus*) 30 ml PO Q4H PRN PRN Reason: INDIGESTION Amlodipine Besylate (Norvasc Tab*) 10 mg PO DAILY [facility] Last Admin: 03/10/17 08:37 Dose: 10 mg Device (Nicotine Mouth Piece*) 1 each INH .[facility] Folic Acid (Folvite Tab*) 1 mg PO DAILY [facility] Last Admin: 03/10/17 08:37 Dose: 1 mg Gabapentin (Neurontin Cap(*)) 200 mg PO TID [facility] Last Admin: 03/10/17 08:36 Dose: 200 mg Ibuprofen (Motrin Tab*) 800 mg PO TID PRN PRN Reason: PAIN Last Admin: 03/09/17 07:38 Dose: 800 mg Multivitamins (Theragran Tab*) 1 tab PO DAILY [facility] Last Admin: 03/10/17 08:36 Dose: 1 tab Nicotine (Nicotine Inhaler*) 10 mg INH Q2H PRN PRN Reason: CRAVING Thiamine HCl (Vitamin B-1 Tab*) 100 mg PO DAILY [facility] Last Admin: 03/10/17 08:37 Dose: 100 mg - Discharge Plan Discharge Plan: Outpatient Follow Up Outpatient Program: providers in [place] per pt plan
[2017-03-11] MEDS: Gabapentin CAP(*) 100 MG PO SCH ×3 (07:51→20:13)
[2017-03-11] MEDS: amLODIPine TAB* 5 MG PO SCH (07:51)
[2017-03-11] MEDS: Thiamine TAB* 100 MG TAB PO SCH (07:52)
[2017-03-11] MEDS: Folic Acid TAB* 1 MG PO SCH (07:52)
[2017-03-11] MEDS: Vitamin THERAPEUTIC TAB PO SCH (07:52)
[2017-03-11] MEDS: Ibuprofen TAB* 800 MG PO PRN (07:53)
--- NOTE | 2017-03-11 11:26 | PN ---
Subjective - Subjective Service Type: 01600 Hosp care 15 min low complexity Subjective: Kayce reports "doing okay" with a good unit experience so far. Denies distress and reports feeling good about being alive. Has a plan for aftercare and is forward thinking. Objective - Appearance Appearance: Well Developed/Nourished Hygiene: Normal Grooming: Well Kept - Behavior Psychomotor Activities: Normal - Attitude and Relatedness Attitude and Relatedness: Superficially Cooperative Eye Contact: Good - Speech Quality: Unpressured Latencies: Normal Quantity: Appropriate - Mood Patient's Decription of Mood: "Anxious" - Affect Observed Affect: Non-labile Affect Consistent with: Euthymia - Thought Process Patient's Thought Process: Coherent Thought Content: No Passive Wish, No Suicidal Planning, No Homicidal Ideation, No Paranoid Ideation - Sensorium Experiencing Hallucinations: No, Sensorium is Clear - Level of Consciousness Level of Consciousness: Alert - Impulse Control Impulse Control: Intact - Insight and Judgement Insight and Judgement: Fair Assessment - Assessment Merits Inpatient Hospitalization: To Initiate Treatment, For Ongoing Evaluation , Consolidate Improvements, For Discharge Planning, Pending Safe DC Plan Inpatient DSM-IV Dx: Alcohol Use Disorder, Severe. Rule out MDD, VITA Clinical Impression: 66-year-old homeless male with a history of severe chronic alcohol dependence, numerous psychiatric hospitalizations, and previous para-suicidal behavior. He was admitted after coming to the ED by ambulance, reporting alcohol relapse, and expressing some ideas of overdosing. This was another alcohol-induced crisis. Stabilizing again here. Clinically is improving with correction of un-manageable mood symptoms and absence of ongoing suicidal ideation. Medication management defers antidepressant at his preference and provides gabapentin. He has not required detoxification on this episode. Anticipate discharge to substance crisis program in coming days. Plan - Plan Treatment Plan: Name: KAYCE ORTEGA Birthdate: 1950 [id number] Medications: Current Medications Acetaminophen (Tylenol Tab*) 650 mg PO Q4H PRN PRN Reason: PAIN or TEMP > 101 F Al Hydrox/Mg Hydrox/Simethicone (Maalox Plus*) 30 ml PO Q4H PRN PRN Reason: INDIGESTION Amlodipine Besylate (Norvasc Tab*) 10 mg PO DAILY [facility] Last Admin: 03/11/17 07:51 Dose: 10 mg Device (Nicotine Mouth Piece*) 1 each INH .[facility] Folic Acid (Folvite Tab*) 1 mg PO DAILY [facility] Last Admin: 03/11/17 07:52 Dose: 1 mg Gabapentin (Neurontin Cap(*)) 200 mg PO TID [facility] Last Admin: 03/11/17 07:51 Dose: 200 mg Ibuprofen (Motrin Tab*) 800 mg PO TID PRN PRN Reason: PAIN Last Admin: 03/11/17 07:53 Dose: 800 mg Multivitamins (Theragran Tab*) 1 tab PO DAILY [facility] Last Admin: 03/11/17 07:52 Dose: 1 tab Nicotine (Nicotine Inhaler*) 10 mg INH Q2H PRN PRN Reason: CRAVING Thiamine HCl (Vitamin B-1 Tab*) 100 mg PO DAILY [facility] Last Admin: 03/11/17 07:52 Dose: 100 mg - Discharge Plan Discharge Plan: Drug/Alcohol Rehab
[2017-03-11] MEDS: Analgesic BALM* 114 GM TOPICAL SCH ×2 (12:28→20:15)
[2017-03-12] MEDS: Ibuprofen TAB* 800 MG PO PRN (08:27)
[2017-03-12] MEDS: Thiamine TAB* 100 MG TAB PO SCH (08:27)
[2017-03-12] MEDS: Folic Acid TAB* 1 MG PO SCH (08:28)
[2017-03-12] MEDS: Gabapentin CAP(*) 100 MG PO SCH ×3 (08:28→20:13)
[2017-03-12] MEDS: amLODIPine TAB* 5 MG PO SCH (08:28)
[2017-03-12] MEDS: Analgesic BALM* 114 GM TOPICAL SCH ×2 (08:30→20:16)
--- NOTE | 2017-03-12 10:44 | PN ---
Subjective - Subjective Service Type: 92177 Hosp care 15 min low complexity Subjective: Kayce reports "doing great" and notes better mood and outlook. Affirms he will be safe. He is eager for discharge to [place] and sees it as a good plan. Denied withdrawal or somatic concerns. Objective - Appearance Appearance: Well Developed/Nourished Hygiene: Normal Grooming: Well Kept - Behavior Psychomotor Activities: Normal - Attitude and Relatedness Attitude and Relatedness: Superficially Cooperative Eye Contact: Good - Speech Quality: Unpressured Latencies: Normal Quantity: Appropriate - Mood Patient's Decription of Mood: "Anxious" - Affect Observed Affect: Non-labile Affect Consistent with: Euthymia - Thought Process Patient's Thought Process: Coherent, Goal Directed Thought Content: No Passive Wish, No Suicidal Planning, No Homicidal Ideation, No Paranoid Ideation - Sensorium Experiencing Hallucinations: No, Sensorium is Clear - Level of Consciousness Level of Consciousness: Alert - Impulse Control Impulse Control: Intact - Insight and Judgement Insight and Judgement: Fair Assessment - Assessment Merits Inpatient Hospitalization: For Ongoing Evaluation, Consolidate Improvements, For Discharge Planning Inpatient DSM-IV Dx: Alcohol Use Disorder, Severe. Rule out MDD, VITA Clinical Impression: 66-year-old homeless male with a history of severe chronic alcohol dependence, numerous psychiatric hospitalizations, and previous para-suicidal behavior. He was admitted after coming to the ED by ambulance, reporting alcohol relapse, and expressing some ideas of overdosing. This was another alcohol-induced crisis. Stabilized again here. Clinically is improved with correction of un-manageable mood symptoms and absence of ongoing suicidal ideation. Medication management defers antidepressant at his preference and provides gabapentin. He has not required detoxification on this episode. This was another substance induced crisis and it is resolved. Plan discharge for tomorrow to substance crisis program. Plan - Plan Treatment Plan: Name: KAYCE ORTEGA Birthdate: 1950 [id number] Medications: Current Medications Acetaminophen (Tylenol Tab*) 650 mg PO Q4H PRN PRN Reason: PAIN or TEMP > 101 F Al Hydrox/Mg Hydrox/Simethicone (Maalox Plus*) 30 ml PO Q4H PRN PRN Reason: INDIGESTION Amlodipine Besylate (Norvasc Tab*) 10 mg PO DAILY [facility] Last Admin: 03/12/17 08:28 Dose: 10 mg Device (Nicotine Mouth Piece*) 1 each INH .[facility] Folic Acid (Folvite Tab*) 1 mg PO DAILY [facility] Last Admin: 03/12/17 08:28 Dose: 1 mg Gabapentin (Neurontin Cap(*)) 200 mg PO TID [facility] Last Admin: 03/12/17 08:28 Dose: 200 mg Ibuprofen (Motrin Tab*) 800 mg PO TID PRN PRN Reason: PAIN Last Admin: 03/12/17 08:27 Dose: 800 mg Multi-Ingredient Liniment/Rub (Manohar Murphy*) 1 applic TOPICAL BID [facility] Last Admin: 03/12/17 08:30 Dose: Not Given Multivitamins (Theragran Tab*) 1 tab PO DAILY [facility] Last Admin: 03/11/17 07:52 Dose: 1 tab Nicotine (Nicotine Inhaler*) 10 mg INH Q2H PRN PRN Reason: CRAVING Thiamine HCl (Vitamin B-1 Tab*) 100 mg PO DAILY [facility] Last Admin: 03/12/17 08:27 Dose: 100 mg - Discharge Plan Discharge Plan: Drug/Alcohol Rehab
[2017-03-12] MEDS: Vitamin THERAPEUTIC TAB PO SCH (11:53)
[2017-03-13] MEDS: Folic Acid TAB* 1 MG PO SCH ×2 (06:45→08:33)
[2017-03-13] MEDS: Thiamine TAB* 100 MG TAB PO SCH ×2 (06:45→08:34)
[2017-03-13] MEDS: Gabapentin CAP(*) 100 MG PO SCH ×2 (06:45→08:33)
[2017-03-13] MEDS: Vitamin THERAPEUTIC TAB PO SCH ×2 (06:45→08:34)
[2017-03-13] MEDS: amLODIPine TAB* 5 MG PO SCH ×2 (06:45→08:33)
[2017-03-13 08:01] VITALS: BP 146/78
[2017-03-13] MEDS: Analgesic BALM* 114 GM TOPICAL SCH (08:33)
--- NOTE | 2017-03-13 10:22 | DS ---
Subjective - Subjective Discharge Date: 03/13/17 Subjective: Cooper left earlier this morning, and his discharge was not complicated. Per nursing: "Patient alert and oriented upon discharge, calm, cooperative and in behavioral control. Patient exhibited good eye contact and was able to make his needs known effectively. Patient verbalized readiness for discharge and denied further need to remain in the hospital for safety. Patient denied feeling depressed and denied suicidal ideation or planning." Treatment Course & Assessment Clinical Course & Impression: 66-year-old homeless male with a history of severe chronic alcohol dependence, numerous psychiatric hospitalizations, and previous para-suicidal behavior. He was admitted after coming to the ED by ambulance, reporting alcohol relapse, and expressing some ideas of overdosing. This was another alcohol-induced crisis. 03/13/17 Clear for release. Cooper stabilized again here. Clinically he fully improved with correction of un-manageable mood symptoms and absence of ongoing suicidal ideation. Medication management deferred antidepressant at his preference and provided gabapentin. He did not require detoxification on this episode. This was another substance induced crisis and it is resolved. Risk concern centered on suicidal ideation. Chronic risk factors are Cooper's prior behaviors, and his depressive symptom pattern in the setting of active substance use, along with his demographics. Protective factors are the absence of ongoing active suicidal ideation, absence of current impairment, his very low current symptom burden, and his general pattern of help seeking behavior. Substance relapse is likely based on his historic pattern. Relapse could raise suicide risk or risk of inadvertent harm. Clear for Discharge: Adequate Clinical Respons, Acceptable Safety Profile, Low Utility of In Care Inpatient DSM-IV Dx: Alcohol Use Disorder, Severe. Rule out MDD, VITA Discharge Planning - Discharge Planning Discharge Plan: Outpatient Follow Up - [facility] clinic Recommendations for Continuing Care: Medication Management, Substance Abuse Counseling, Primary Care Followup Medications: Acetaminophen (Tylenol Tab*) 650 mg PO Q4H PRN PRN Reason: PAIN or TEMP > 101 F Amlodipine Besylate (Norvasc Tab*) 10 mg PO DAILY [facility] Last Admin: 03/12/17 08:28 Dose: 10 mg Folic Acid (Folvite Tab*) 1 mg PO DAILY [facility] Last Admin: 03/12/17 08:28 Dose: 1 mg Gabapentin (Neurontin Cap(*)) 200 mg PO TID [facility] Last Admin: 03/12/17 08:28 Dose: 200 mg Ibuprofen (Motrin Tab*) 800 mg PO TID PRN PRN Reason: PAIN Last Admin: 03/12/17 08:27 Dose: 800 mg Nicotine (Nicotine Inhaler*) 10 mg INH Q2H PRN PRN Reason: CRAVING Thiamine HCl (Vitamin B-1 Tab*) 100 mg PO DAILY [facility] Last Admin: 03/12/17 08:27 Dose: 100 mg Discharge Planning: Prescriptions provided for discharge [] Yes [x] No Follow up care details as per social work arrangements. Patient response to discharge plan: [x] eager for discharge [] agreeable with discharge plan [] ambivalent about discharge [] disagrees with discharge today
== END 2017-03-13 08:20 | disposition home or self-care (01) | DRG 775 ==
LOC: ED 20:13 → BSU 03-09 04:29
PROVIDERS: ADMIT Psychiatry & Neurology Psychiatry; ATTEND Psychiatry & Neurology Psychiatry
DX: F10.10 Alcohol abuse, uncomplicated (principal); R45.851 Suicidal ideations; Y90.7 Blood alcohol level of 200-239 mg/100 ml; F41.1 Generalized anxiety disorder; M19.90 Unspecified osteoarthritis, unspecified site; M54.30 Sciatica, unspecified side; I10 Essential (primary) hypertension; M71.21 Synovial cyst of popliteal space [Baker], right knee; Z88.8 Allergy status to other drugs, medicaments and biological substances; Z81.1 Family history of alcohol abuse and dependence
CPT/HCPCS: 36415; 80053; 80307; 80320; 80329; 81003; 84443; 85025; 99222; 99231; 99238; A9270-GY; G0480

== ENCOUNTER 2018-05-20 17:42 | Inpatient (IN) | payer MEDICAID, MEDICARE ==
[2018-05-20] MEDS ORDERED: Thiamine TAB* 100 MG TAB PO ONE (18:27)
[2018-05-20] MEDS ORDERED: Folic Acid TAB* 1 MG PO ONE (18:27)
[2018-05-20 18:37] LABS: ABS Basophils 0.1 10^3/ul (0-0.2); ABS Eosinophils 0 10^3/ul (0-0.6); ABS Lymphocytes 1.8 10^3/ul (1.0-4.8); ABS Monocytes 0.4 10^3/ul (0-0.8); ABS Neutrophils 4.5 10^3/ul (1.5-7.7); ABS Nucleated RBC 0 10^3/ul; Eosinophil % 0.3 % (0-6); Hematocrit 45 % (42-52); Hemoglobin 15.4 g/dl (14.0-18.0); Lymphocyte % 26.1 % (25-47); Mean Corpuscular HGB Conc 34 g/dl (31-36); Mean Corpuscular Hemoglobin 30 pg (27-31); Mean Corpuscular Volume 89 fL (80-94); Nucleated Red Blood Cells % 0.3; Platelet Count 314 10^3/ul (150-450); Red Blood Count 5.05 10^6/ul (4.00-5.40); Red Cell Distribution Width 14 % (10.5-15); White Blood Count 6.8 10^3/ul (3.5-10.8)
--- NOTE | 2018-05-20 18:37 | ED ---
Psychiatric Complaint - HPI Summary HPI Summary: This is scribe Anthony Atkins documenting for attending Dr. Tyrell Dang. This patient is a 67 year old M presenting to [facility] with a chief complaint of SI with plan to take his pills and drink since 1400. Pt claims he has been sober for over a year, until his recent 3 day monge. Today, pt was drinking in [facility] all day, when sx started; pt endorses drinking 7 Coors lights and 4 vodka mixed drinks. Pt endorses rx Norvasc and Neurontin. PMHx HTN, ruptured disk, anxiety, and depression. Pt endorsed withdrawal, then when asked about it he redacted his comment. SHx 2 cataract surgeries. I, Dr. Santillan personally performed the services described in this documentation as scribed in my presence and it is both accurate and complete. - History Of Current Complaint Chief Complaint: EDMentalHealth Time Seen by Provider: 05/20/18 18:20 Hx Obtained From: Patient Onset/Duration: Sudden Onset, Lasting Hours, Still Present Timing: Constant Severity Initially: Moderate Severity Currently: Moderate Character: Depressed, Anxious Aggravating Factor(s): Alcohol Use - and recent relapse Alleviating Factor(s): Nothing Related History: Positive For: Prior Psychiatric Issues, Admissions Related To Substance Abuse Has Suicidal: Reports: Thoughts, With A Plan, Has Prior Attempt(s) Has Homicidal: Denies: Thoughts Ingestion History: Type/Name Of Drug - EtOH, Amount Ingested - 11 drinks, Approximate Time Of Ingestion - since 1400 - Allergies/Home Medications Allergies/Adverse Reactions: Allergies Allergy/AdvReac Type Severity Reaction Status Date / Time MS Acamprosate [From Irasburgral] Allergy See Comment Verified 05/20/18 17:57 PMH/Surg Hx/FS Hx/Imm Hx Endocrine/Hematology History: Denies: Hx Sickle Cell Disease Cardiovascular History: Reports: Hx Hypertension GI History: Reports: Other GI Disorders - Pt reports periods of incontinence, especially when withdrawing from alcoho History: Denies: Hx Dialysis Musculoskeletal History: Reports: Hx Arthritis - PER PT REPORT TO RIGHT LEG/KNEE Denies: Hx Osteoporosis Sensory History: Reports: Hx Cataracts, Other Sensory Impairments - both eyes with lens implants Denies: Hx Contacts or Glasses, Hx Legally Blind, Hx Deafness, Hx Hearing Aid Opthamlomology History: Reports: Hx Cataracts, Other Sensory Impairments - both eyes with lens implants Denies: Hx Contacts or Glasses, Hx Legally Blind EENT History: Denies: Hx Deafness Psychiatric History: Reports: Hx Anxiety, Hx Depression, Hx Inpatient Treatment , Hx Community Mental Health Tx, Hx Suicide Attempt, Hx Substance Abuse Denies: Hx Eating Disorder, Hx of Violent Episodes Against Others - Surgical History Surgery Procedure, Year, and Place: Cataract x 2 Infectious Disease History: No Infectious Disease History: Denies: Traveled Outside the [place] in Last 30 Days - Family History Known Family History: Positive: Other - Anxiety, depression, EtOH abuse Family History: Hx of EtOH in family. - Social History Occupation: Unemployed Lives: Alone Alcohol Use: Daily Alcohol Amount: started 6-pack/day, moving up to up to 12 pack day over 8 day period Hx Substance Use: No Substance Use Type: Reports: None Substance Use Comment - Amount & Last Used: Pt is a chronic alcoholic Hx Tobacco Use: No Smoking Status (MU): Never Smoked Tobacco Review of Systems Positive: Other - EtOH intoxication. Negative: Fever Positive: no symptoms reported Positive: Anxious, Depressed, Other - SI with plan All Other Systems Reviewed And Are Negative: Yes Physical Exam - Summary Physical Exam Summary: VITAL SIGNS: Reviewed. GENERAL: Patient is a well-developed and nourished male who is lying comfortable in the stretcher. Patient is not in any acute respiratory distress. Smells of alcohol on his breath. HEAD AND FACE: No signs of trauma. No ecchymosis, hematomas or skull depressions. No sinus tenderness. EYES: PERRLA, EOMI x 2, No injected conjunctiva, no nystagmus. EARS: Hearing grossly intact. Ear canals and tympanic membranes are within normal limits. MOUTH: Oropharynx within normal limits. NECK: Supple, trachea is midline, no adenopathy, no JVD, no carotid bruit, no c- spine tenderness, neck with full ROM. CHEST: Symmetric, no tenderness at palpation LUNGS: Clear to auscultation bilaterally. No wheezing or crackles. CVS: Regular rate and rhythm, S1 and S2 present, no murmurs or gallops appreciated. ABDOMEN: Soft, non-tender. No signs of distention. No rebound no guarding, and no masses palpated. Bowel sounds are normal. EXTREMITIES: FROM in all major joints, no edema, no cyanosis or clubbing. NEURO: Alert and oriented x 3. No acute neurological deficits. Speech is normal and follows commands. SKIN: Dry and warm Triage Information Reviewed: Yes Vital Signs On Initial Exam: Initial Vitals Temp Pulse Resp BP Pulse Ox 98.4 F 141 20 134/100 93 05/20/18 17:50 05/20/18 17:50 05/20/18 17:50 05/20/18 17:50 05/20/18 17:50 Vital Signs Reviewed: Yes Diagnostics - Vital Signs Vital Signs Temp Pulse Resp BP Pulse Ox 05/20/18 17:50 98.4 F 141 20 134/100 93 - Laboratory Result Diagrams: 05/20/18 18:27 05/20/18 18:27 Lab Statement: Any lab studies that have been ordered have been reviewed, and results considered in the medical decision making process. Course/Dx - Differential Dx/Clinical Impression Differential Diagnosis/HQI/PQRI: Positive: Alcohol Intoxication Provider Diagnosis: Alcohol intoxication Discharge - Sign-Out/Discharge Documenting (check all that apply): Sign-Out Patient Signing out patient TO: Carlos A Alfred - BECKY Cantu - Discharge Plan Referrals: Non Staff,Doctor [Medical Doctor] -
[2018-05-20 18:53] LABS: EGFR Non-African American 107.8 (>60)
--- NOTE | 2018-05-20 19:05 | ED ---
Progress - Progress Note Progress Note: This is scribe Domingo Solis documenting for attending Ольга Alfred MD. This patient is a 67 year old M presenting to [facility] with a chief complaint of SI with plan to take his pills and drink since 14:00. This patient was received from Dr. Santillan during a shift change and signed out to Dr. Alfred. I, Dr. Alfred, personally performed the services described in this documentation as scribed in my presence and it is both accurate and complete. Course/Dx - Course Course Of Treatment: Patient was cleared for MHE. Now admitted to Mental Health with Stoney Link MD for alcohol induced mood disorder. - Diagnoses Provider Diagnoses: Alcohol intoxication, Alcohol-induced mood disorder Discharge - Sign-Out/Discharge Documenting (check all that apply): Receiving Sign-Out Signing out patient TO: Carlos A Alfred Receiving patient FROM: Matthew Santillan - Waiting for patient to be cleared for MHE. - Discharge Plan Condition: Stable Disposition: ADMITTED TO [facility] Referrals: Non Staff,Doctor [Medical Doctor] -
[2018-05-20 19:17] LABS: Urine Appearance Clear; Urine Blood 1+ (Negative); Urine Color Colorless; Urine Ketones Negative (Negative); Urine Protein Negative (Negative); Urine Red Blood Cell Trace(0-2/hpf) (Absent); Urine Specific Gravity 1.002 (1.010-1.030); Urine Urobilinogen Negative (Negative); Urine White Blood Cell Absent (Absent)
[2018-05-21] MEDS ORDERED: Gabapentin CAP(*) 100 MG PO ONE (01:26)
[2018-05-21] MEDS ORDERED: LORazepam TAB(*) 1 MG ONE (04:59)
[2018-05-21] MEDS ORDERED: Acetaminophen TAB* 325 MG PO PRN (05:19)
[2018-05-21] MEDS ORDERED: Al Hydrox/Mg Hydrox/Simet LIQ* 30 ML UDC PO PRN (05:19)
[2018-05-21] MEDS ORDERED: LORazepam IM 0-6 mg for WAM protocol IM SCH (06:00)
[2018-05-21] MEDS: Gabapentin CAP(*) 100 MG PO SCH ×3 (07:39→21:09)
[2018-05-21] MEDS: LORazepam PO 0-6 for WAM protocol PO SCH ×2 (07:40→09:01)
[2018-05-21] MEDS: amLODIPine TAB* 5 MG PO SCH (07:40)
[2018-05-21] MEDS: Folic Acid TAB* 1 MG PO SCH (07:41)
[2018-05-21] MEDS: Thiamine TAB* 100 MG TAB PO SCH (07:41)
--- NOTE | 2018-05-21 17:01 | HP ---
HISTORY AND PHYSICAL: DATE OF ADMISSION: 05/21/18 PROVIDER: Christelle Parra NP, in Psychiatry SUPERVISING PHYSICIAN: Edgar Lara MD * (DICTATED BY CHRISTELLE PARRA NP ) JUSTIFICATION FOR ADMISSION: The patient is in need of 24-hour supervision and care secondary to suicidal ideation. CHIEF COMPLAINT: "I want to take all my Norvasc and drink a lot and go and fall asleep by the alcazar." HISTORY OF PRESENT ILLNESS: The patient is a 67-year-old single white man with a history of alcohol abuse, who arrives, brought by a taxi cab and on a voluntary status, after determining that he was going to refill his medication and take it all while drinking alcohol. This is a very common story for "Robert" as he has been to this hospital almost 20 times for the same presentation. He was in [place] and sober for a year, but he went to [place], became intoxicated with his brother, and ended up in [place] where he is a frequent resident and continued drinking. He called his AA sponsor while he was thinking of suicide and decided that he should come to the hospital. At this point, his sleep is disrupted as is typical in alcohol abuse. While he has some guilt, he is also proud that he came to the hospital. His appetite is fine. His speech is circumstantial and he was having suicidal ideation but he is not anymore. PAST PSYCHIATRIC HISTORY: As I said he has been admitted almost 20 times to the [facility] and has been discharged as many times to both outpatient rehab and homeless shelters. He denies history of violence. Denies access to weapons. Denies a traumatic past. Denies a traumatic brain injury, although he does have a dominga on his head at this point from being scraped when he slipped in the shower. He has previously taken Celexa but he does not want to take that at this time. Currently, he is taking Norvasc, naproxen, and gabapentin. PAST MEDICAL HISTORY: 1. He has sciatic pain. 2. He has hypertension. 3. He has apparently ruptured disk in his back. ALLERGIES: He states he is allergic to CAMPRAL. It is unclear whether this is a true allergy or something that he just simply did not like. FAMILY HISTORY: He is unclear about this. He just say that mom and dad were drinkers. He states that his brother may have bipolar disorder and is chemically addicted. The other brother drinks alcohol as well, although I do not know how heavy drinker he is and his sister, Beverley, he did not mention whether she uses substances or has any psychiatric illnesses. SUBSTANCE ABUSE: He is an alcohol user. He had 7 Coors Lights (which he considers reasonable amount) and some vodka drinks before his arrival at the hospital. He does have an AA sponsor. He does not smoke cigarettes. He does not use other drugs. SOCIAL HISTORY: He has 2 brothers and a sister. The farthest away is his brother in [place]. He has another brother who lives on [address]. He was employed. He is unable to give a good history of his employment at this time. He has no legal problems at this time. REVIEW OF SYSTEMS: The patient reports feeling fatigued. He denies shortness of breath, heat or cold intolerance, chest pain or abdominal pain. He denies neurological symptoms. He denies fevers or changes in weight. PHYSICAL EXAMINATION On 05/21/18, at 08:56 in the morning, his temperature was 98.6, pulse 112, respirations 18, O2 sat on room air is 97, blood pressure 126/67. For further exam data, please see emergency department records. LABORATORY DATA: Most data were normal. The exception being his MPV little low at 7. His urine specific gravity was low at 1.002. There is blood present in his urine and his serum alcohol was 240. MENTAL STATUS EXAM: This is somewhat short man who is averagely built. He has a very close shaved head with silvery sorensen hair. He has a dominga on his head from where he slipped in the shower but it appears only be a scrape. His grooming is adequate. He is slightly hypokinetic perhaps because he is using a cane, perhaps because he does not want to fall. He is calm and cooperative. His speech is normal rate, tone, and volume. It is circumstantial. He appears to be euthymic. He has a full range of affect. His thought processes are normal. His thought content is clear and logical, if circumstantial. He is not homicidal or suicidal. He is not experiencing hallucinations of any kind. His insight is fair. His judgement is fair. His cognition, he is alert and awake, but he does seem slightly unable to answer questions succinctly. This is inconsistent with what Tricia Ness LCSW, is used to seeing in his presentation during other hospitalizations. DIAGNOSIS: [place] I: Alcohol induced depressive disorder. IMPRESSION: This is a 67-year-old man who comes to the hospital in a nearly identical presentation to those in the past and with suicidal ideation that relatively quickly clears up with sobriety. PLAN: The patient is admitted to the adult behavioral health unit and placed on 15 minute checks for his own safety. He is encouraged to participate in supportive milieu, individual and group therapies. Estimated length of stay is 3 to 5 days. We will be employing the [facility] protocol to deal with his alcohol withdrawal. Discharge planning will include family involvement and outpatient providers. CHRISTELLE PARRA, AUDELIA [id number]/CPS #: [id number] PENNY
[2018-05-22] MEDS: LORazepam PO 0-6 for WAM protocol PO SCH ×2 (05:53→12:53)
[2018-05-22] MEDS: amLODIPine TAB* 5 MG PO SCH (08:57)
[2018-05-22] MEDS: Folic Acid TAB* 1 MG PO SCH (08:58)
[2018-05-22] MEDS: Thiamine TAB* 100 MG TAB PO SCH (08:58)
[2018-05-22] MEDS: Gabapentin CAP(*) 100 MG PO SCH ×3 (08:59→23:58)
--- NOTE | 2018-05-22 14:08 | PN ---
Subjective - Subjective Date of Service: 05/22/18 Service Type: [id number] Hosp care 15 min low complexity Subjective: Robert is spending most of the day in bed as he is not feeling well physically. He believes the detoxification of his body from alcohol is particularly difficult for him this time. He has scored on the WAM and has received Ativan. A MoCA was performed and he did not do particularly well on it, scoring only 19/ 30. He struggled with visuospatial and executive function, attention, and language. He was fully oriented to time and date. Objective - Appearance Appearance: Healthy Appearing Dysmorphic Features: No Hygiene: Normal Grooming: Well Kept - Behavior Psychomotor Activities: Normal Exhibits Abnormal Movement: No - Attitude and Relatedness Attitude and Relatedness: Cooperative Eye Contact: Good - Speech Quality: Unpressured Latencies: Normal Quantity: Appropriate - Mood Patient's Decription of Mood: "Okay" - Affect Observed Affect: Fair Affect Consistent with: Dysphoria - Thought Process Patient's Thought Process: Coherent, Circumstantial Thought Content: No Passive Wish, No Suicidal Planning, No Homicidal Ideation, No Paranoid Ideation - Sensorium Experiencing Hallucinations: No, Sensorium is Clear Type of Hallucinations: Visual: No, Auditory: No, Command: No - Level of Consciousness Level of Consciousness: Lethargic Orientation: Yes Intact, Yes Orientated to Time, Yes Orientated to Place, Yes Orientated to Person - Impulse Control Impulse Control: Intact - Insight and Judgement Insight and Judgement: Fair - Group Participation Particating in Group Activities: No - Medication Management Medication Management Adherence: Yes - Additional Observations Comments: Kayce is tired today and appears to have wanted to stay in bed for this reason. He has eaten meals with his peers. It seems that his cognition is somewhat impaired, based on the MoCA test, but he does not perceive it. Assessment - Assessment Merits Inpatient Hospitalization: For Immediate Safety, For Stabilization, For Discharge Planning Inpatient DSM-V Dx: F10.24 Clinical Impression: Kayce is motivated to go to rehab and wants to do research to find out where he can go. He is psychiatrically stable at this time. Plan - Plan Treatment Plan: Name: KAYCE ORTEGA Birthdate: 1950 [id number] Continued Medication Management: Consider Medication Medications: Current Medications Acetaminophen (Tylenol Tab*) 650 mg PO Q4H PRN PRN Reason: PAIN or TEMP > 101 F Al Hydrox/Mg Hydrox/Simethicone (Maalox Plus*) 30 ml PO Q4H PRN PRN Reason: INDIGESTION Amlodipine Besylate (Norvasc Tab*) 10 mg PO DAILY [facility] Last Admin: 05/22/18 08:57 Dose: 10 mg Folic Acid (Folvite Tab*) 1 mg PO DAILY [facility] Last Admin: 05/22/18 08:58 Dose: 1 mg Gabapentin (Neurontin Cap(*)) 200 mg PO TID [facility] Last Admin: 05/22/18 08:59 Dose: 200 mg Lorazepam (Ativan Tab(*)) 0 - 6 mg PO .[facility] PARAMETERS [facility]; Protocol Last Admin: 05/22/18 12:53 Dose: 2 mg Lorazepam (Ativan Inj*) 0 - 6 mg IM .[facility] PROTOCOL [facility]; Protocol Naproxen (Naprosyn Tab*) 500 mg PO DAILY PRN PRN Reason: PAIN Thiamine HCl (Vitamin B-1 Tab*) 100 mg PO DAILY [facility] Last Admin: 05/22/18 08:58 Dose: 100 mg - Discharge Plan Discharge Plan: Drug/Alcohol Rehab Additional Comments: Kayce wants to go to inpatient rehabilitation for alcohol use. We are helping him accomplish this goal.
[2018-05-22] MEDS: Naproxen TAB* 250 MG PO PRN (14:16)
[2018-05-23] MEDS: LORazepam PO 0-6 for WAM protocol PO SCH (06:00)
[2018-05-23] MEDS: Gabapentin CAP(*) 100 MG PO SCH ×4 (06:16→21:28)
[2018-05-23] MEDS: amLODIPine TAB* 5 MG PO SCH (09:17)
[2018-05-23] MEDS: Thiamine TAB* 100 MG TAB PO SCH (09:17)
[2018-05-23] MEDS: Folic Acid TAB* 1 MG PO SCH (09:17)
[2018-05-23] MEDS ORDERED: Loperamide CAP* 2 MG PO ONE (13:30)
[2018-05-23] MEDS ORDERED: Loperamide CAP* 2 MG PO PRN (13:32)
[2018-05-23] MEDS: Naproxen TAB* 250 MG PO PRN (14:25)
[2018-05-24] MEDS: amLODIPine TAB* 5 MG PO SCH (08:29)
[2018-05-24] MEDS: Folic Acid TAB* 1 MG PO SCH (08:29)
[2018-05-24] MEDS: Gabapentin CAP(*) 100 MG PO SCH ×3 (08:30→20:17)
[2018-05-24] MEDS: Thiamine TAB* 100 MG TAB PO SCH (08:31)
[2018-05-24] MEDS: Naproxen TAB* 250 MG PO PRN (08:32)
--- NOTE | 2018-05-24 13:08 | PN ---
Subjective - Subjective Date of Service: 05/24/18 Service Type: 58999 Hosp care 15 min low complexity Subjective: Kayce continues to remain isolative spending great deal of time in bed at times sleeping may be due to receiving Lorazepam on [place]. He denies any withdrawals today and appears more alert. Says his mood is good without any negative thoughts including SI. Reading the AA book for his next meeting tomorrow. Denies hallucinations or delusions. Objective - Appearance Appearance: Healthy Appearing Dysmorphic Features: No Hygiene: Normal Grooming: Fairly Well Kept - Behavior Psychomotor Activities: Normal Exhibits Abnormal Movement: No - Attitude and Relatedness Attitude and Relatedness: Appropriate Eye Contact: Good - Speech Quality: Unpressured Latencies: Normal Quantity: Appropriate - Mood Patient's Decription of Mood: "Okay" - Affect Observed Affect: Non-labile Affect Consistent with: Euthymia - Thought Process Patient's Thought Process: Coherent, Goal Directed Thought Content: No Passive Wish, No Suicidal Planning, No Homicidal Ideation, No Paranoid Ideation - Sensorium Experiencing Hallucinations: No, Sensorium is Clear Type of Hallucinations: Visual: No, Auditory: No, Command: No - Level of Consciousness Level of Consciousness: Alert Orientation: Yes Intact, Yes Orientated to Time, Yes Orientated to Place, Yes Orientated to Person - Impulse Control Impulse Control: Intact - Insight and Judgement Insight and Judgement: Fair - Group Participation Particating in Group Activities: No - Medication Management Medication Management Adherence: Yes Assessment - Assessment Merits Inpatient Hospitalization: Consolidate Improvements, For Discharge Planning Inpatient DSM-V Dx: F10.24 Clinical Impression: Doing well today with good mood and no withdrawals, psychosis or SI. Plan - Plan Treatment Plan: Name: KAYCE ORTEGA Birthdate: 1950 [id number] Continued Medication Management: Continue Outpt Medication Medications: Current Medications Acetaminophen (Tylenol Tab*) 650 mg PO Q4H PRN PRN Reason: PAIN or TEMP > 101 F Al Hydrox/Mg Hydrox/Simethicone (Maalox Plus*) 30 ml PO Q4H PRN PRN Reason: INDIGESTION Amlodipine Besylate (Norvasc Tab*) 10 mg PO DAILY [facility] Last Admin: 05/24/18 08:29 Dose: 10 mg Folic Acid (Folvite Tab*) 1 mg PO DAILY [facility] Last Admin: 05/24/18 08:29 Dose: 1 mg Gabapentin (Neurontin Cap(*)) 200 mg PO TID [facility] Last Admin: 05/24/18 08:30 Dose: 200 mg Loperamide HCl (Imodium Cap*) 2 mg PO .SEE DIRECTIONS PRN PRN Reason: AFTER EACH LOOS STOOL Lorazepam (Ativan Tab(*)) 0 - [address] [facility] PARAMETERS [facility]; Protocol Last Admin: 05/23/18 06:00 Dose: 2 mg Lorazepam (Ativan Inj*) 0 - [address] [facility] PROTOCOL [facility]; Protocol Naproxen (Naprosyn Tab*) 500 mg PO DAILY PRN PRN Reason: PAIN Last Admin: 05/24/18 08:32 Dose: 500 mg Thiamine HCl (Vitamin B-1 Tab*) 100 mg PO DAILY [facility] Last Admin: 05/24/18 08:31 Dose: 100 mg - Discharge Plan Discharge Plan: Drug/Alcohol Rehab - Consider Neuropsych testing to R/O Major Neurocognitive D/O.
[2018-05-25] MEDS: Folic Acid TAB* 1 MG PO SCH (09:08)
[2018-05-25] MEDS: Gabapentin CAP(*) 100 MG PO SCH ×3 (09:08→22:09)
[2018-05-25] MEDS: Thiamine TAB* 100 MG TAB PO SCH (09:09)
[2018-05-25] MEDS: amLODIPine TAB* 5 MG PO SCH (09:09)
[2018-05-25] MEDS: Naproxen TAB* 250 MG PO PRN (09:09)
[2018-05-25] MEDS: LORazepam PO 0-6 for WAM protocol PO SCH (10:38)
--- NOTE | 2018-05-25 11:48 | PN ---
MHU: Group Therapy Note - Service Type Service Type: 31106 Group Psychotherapy - Cognitive Behavioral Group Therapy ( CBT):Patient was attentive and participatory in CBT programming this morning, and remained in good behavioral control. Patient expressed positive insights regarding relevant treatment interventions and goals.
--- NOTE | 2018-05-25 15:13 | PN ---
Subjective - Subjective Date of Service: 05/25/18 Service Type: 12499 Hosp care 15 min low complexity Subjective: Kayce reports doing well. He states he's looking forward to going to rehab and then getting into sober housing. He's been doing his own research into rehabs online and has been working on the [facility]. As an aside, Kayce reveals that he was diagnosed with dementia in the past year. Objective - Appearance Appearance: Well Developed/Nourished, Healthy Appearing Dysmorphic Features: No Hygiene: Normal Grooming: Well Kept - Behavior Psychomotor Activities: Normal Exhibits Abnormal Movement: No - Attitude and Relatedness Attitude and Relatedness: Cooperative Eye Contact: Good - Speech Quality: Unpressured Latencies: Normal Quantity: Appropriate - Mood Patient's Decription of Mood: "Fine" - Affect Observed Affect: Fair Affect Consistent with: Dysphoria - Thought Process Patient's Thought Process: Coherent Thought Content: No Passive Wish, No Suicidal Planning, No Homicidal Ideation, No Paranoid Ideation - Sensorium Experiencing Hallucinations: No, Sensorium is Clear Type of Hallucinations: Visual: No, Auditory: No, Command: No - Level of Consciousness Level of Consciousness: Alert Orientation: Yes Intact, Yes Orientated to Time, Yes Orientated to Place, Yes Orientated to Person - Impulse Control Impulse Control: Tenuous - Insight and Judgement Insight and Judgement: Good - Group Participation Particating in Group Activities: Yes - Medication Management Medication Management Adherence: Yes - Additional Observations Comments: Kayce appears well and reasonably happy, although there is an edge of unhappiness that he is not doing as well as he once did when he was able to maintain his sobriety. Assessment - Assessment Merits Inpatient Hospitalization: For Immediate Safety, For Discharge Planning, Pending Safe DC Plan Inpatient DSM-V Dx: F10.24 Clinical Impression: Kayce is motivated to go to rehab and wants to do research to find out where he can go. He is psychiatrically stable at this time. His mentation indicates some dementia type deficits. Plan - Plan Treatment Plan: Name: KAYCE ORTEGA Birthdate: 1950 [id number] Continued Medication Management: Continue Outpt Medication Medications: Current Medications Acetaminophen (Tylenol Tab*) 650 mg PO Q4H PRN PRN Reason: PAIN or TEMP > 101 F Al Hydrox/Mg Hydrox/Simethicone (Maalox Plus*) 30 ml PO Q4H PRN PRN Reason: INDIGESTION Amlodipine Besylate (Norvasc Tab*) 10 mg PO DAILY [facility] Last Admin: 05/25/18 09:09 Dose: 10 mg Folic Acid (Folvite Tab*) 1 mg PO DAILY [facility] Last Admin: 05/25/18 09:08 Dose: 1 mg Gabapentin (Neurontin Cap(*)) 200 mg PO TID [facility] Last Admin: 05/25/18 13:37 Dose: 200 mg Loperamide HCl (Imodium Cap*) 2 mg PO .SEE DIRECTIONS PRN PRN Reason: AFTER EACH LOOS STOOL Lorazepam (Ativan Tab(*)) 0 - 6 mg PO .PER [facility] PARAMETERS [facility]; Protocol Last Admin: 05/25/18 10:38 Dose: 2 mg Lorazepam (Ativan Inj*) 0 - 6 mg IM .PER [facility] PROTOCOL [facility]; Protocol Naproxen (Naprosyn Tab*) 500 mg PO DAILY PRN PRN Reason: PAIN Last Admin: 05/25/18 09:09 Dose: 500 mg Thiamine HCl (Vitamin B-1 Tab*) 100 mg PO DAILY [facility] Last Admin: 05/25/18 09:09 Dose: 100 mg - Discharge Plan Additional Comments: Kayce wants to go to inpatient rehabilitation for alcohol use. We are helping him accomplish this goal. He has filled out the [facility] packet and is looking for sober housing, as well.
[2018-05-26] MEDS: amLODIPine TAB* 5 MG PO SCH (08:35)
[2018-05-26] MEDS: Naproxen TAB* 250 MG PO PRN (08:35)
[2018-05-26] MEDS: Thiamine TAB* 100 MG TAB PO SCH (08:36)
[2018-05-26] MEDS: Gabapentin CAP(*) 100 MG PO SCH ×3 (08:36→20:10)
[2018-05-26] MEDS: Folic Acid TAB* 1 MG PO SCH (08:36)
--- NOTE | 2018-05-26 10:55 | PN ---
Subjective - Subjective Date of Service: 05/26/18 Service Type: 79806 Hosp care 15 min low complexity Subjective: Robert is using the terminology of AA and recovery to describe how he is doing today. He feels like he needs to be self-directed, more than he currently is, to determine his success in sobriety. He states he's had better luck in sober living communities and has stayed sober longer. He requests "Icy Hot" for his soreness and states that is helpful for his leg. He anticipates back surgery in his future. Objective - Appearance Appearance: Healthy Appearing Dysmorphic Features: No Hygiene: Normal Grooming: Well Kept - Behavior Psychomotor Activities: Normal Exhibits Abnormal Movement: No - Attitude and Relatedness Attitude and Relatedness: Superficially Cooperative Eye Contact: Good - Speech Quality: Unpressured Latencies: Normal Quantity: Appropriate - Mood Patient's Decription of Mood: "Good" - Affect Observed Affect: Good Affect Consistent with: Euthymia - Thought Process Patient's Thought Process: Coherent Thought Content: Yes Suicidal Planning - when he is sober, these thoughts happen , No Passive Wish, No Homicidal Ideation, No Paranoid Ideation - Sensorium Experiencing Hallucinations: No, Sensorium is Clear Type of Hallucinations: Visual: No, Auditory: No, Command: No - Level of Consciousness Level of Consciousness: Alert Orientation: Yes Intact, Yes Orientated to Time, Yes Orientated to Place, Yes Orientated to Person - Impulse Control Impulse Control: Intact - Insight and Judgement Insight and Judgement: Fair - Group Participation Particating in Group Activities: Yes - Medication Management Medication Management Adherence: Yes - Additional Observations Comments: Kayce appears well and reasonably happy, although there is an edge of unhappiness that he is not doing as well as he once did when he was able to maintain his sobriety. Groups like [facility] and AA are making a positive difference in encouraging "Robert." Assessment - Assessment Merits Inpatient Hospitalization: For Immediate Safety, For Discharge Planning, Pending Safe DC Plan Inpatient DSM-V Dx: F10.24 Clinical Impression: Kayce is motivated to go to rehab and wants to do research to find out where he can go. He is psychiatrically stable at this time. His mentation indicates some dementia-type deficits. He is psychiatrically ready to work on his sobriety and will benefit from moving on to rehab. Plan - Plan Treatment Plan: Name: KAYCE ORTEGA Birthdate: 1950 [id number] Medications: Current Medications Acetaminophen (Tylenol Tab*) 650 mg PO Q4H PRN PRN Reason: PAIN or TEMP > 101 F Al Hydrox/Mg Hydrox/Simethicone (Maalox Plus*) 30 ml PO Q4H PRN PRN Reason: INDIGESTION Amlodipine Besylate (Norvasc Tab*) 10 mg PO DAILY [facility] Last Admin: 05/26/18 08:35 Dose: 10 mg Folic Acid (Folvite Tab*) 1 mg PO DAILY [facility] Last Admin: 05/26/18 08:36 Dose: 1 mg Gabapentin (Neurontin Cap(*)) 200 mg PO TID [facility] Last Admin: 05/26/18 08:36 Dose: 200 mg Loperamide HCl (Imodium Cap*) 2 mg PO .SEE DIRECTIONS PRN PRN Reason: AFTER EACH LOOS STOOL Lorazepam (Ativan Tab(*)) 0 - 6 mg PO .PER [facility] PARAMETERS [facility]; Protocol Last Admin: 05/25/18 10:38 Dose: 2 mg Lorazepam (Ativan Inj*) 0 - 6 mg IM .PER [place] PROTOCOL [facility]; Protocol Naproxen (Naprosyn Tab*) 500 mg PO DAILY PRN PRN Reason: PAIN Last Admin: 05/26/18 08:35 Dose: 500 mg Thiamine HCl (Vitamin B-1 Tab*) 100 mg PO DAILY [facility] Last Admin: 05/26/18 08:36 Dose: 100 mg - Discharge Plan Discharge Plan: Drug/Alcohol Rehab Additional Comments: Kayce wants to go to inpatient rehabilitation for alcohol use. We are helping him accomplish this goal. He has filled out the [facility] packet and is looking for sober housing, as well. He continues to choose where he would like to go and that plan changes daily; nevertheless, he is consistent in wanting to advance to rehab.
[2018-05-26] MEDS: Analgesic BALM* 114 GM TOPICAL SCH ×2 (12:52→20:29)
[2018-05-27] MEDS: Folic Acid TAB* 1 MG PO SCH (09:07)
[2018-05-27] MEDS: amLODIPine TAB* 5 MG PO SCH (09:07)
[2018-05-27] MEDS: Gabapentin CAP(*) 100 MG PO SCH ×3 (09:09→20:02)
[2018-05-27] MEDS: Thiamine TAB* 100 MG TAB PO SCH (09:10)
[2018-05-27] MEDS: Analgesic BALM* 114 GM TOPICAL SCH ×2 (09:11→21:28)
[2018-05-27] MEDS: Naproxen TAB* 250 MG PO PRN (09:12)
--- NOTE | 2018-05-27 16:04 | PN ---
Subjective - Subjective Date of Service: 05/27/18 Service Type: [id number] Hosp care 15 min low complexity Subjective: Robert states, as usual, that he's "coming along." There is a remarkable lack of insight into the responsibility he might have in his life, stating only that he needs to eat right and take his medications. He is hopeful that others will provide the structure that he requires to stay sober. Objective - Appearance Appearance: Well Developed/Nourished Dysmorphic Features: No Hygiene: Normal Grooming: Well Kept - Behavior Psychomotor Activities: Normal Exhibits Abnormal Movement: No - Attitude and Relatedness Attitude and Relatedness: Cooperative Eye Contact: Good - Speech Quality: Unpressured Latencies: Normal Quantity: Appropriate - Mood Patient's Decription of Mood: "Good" - Affect Observed Affect: Good Affect Consistent with: Euthymia - Thought Process Patient's Thought Process: Coherent Thought Content: No Passive Wish, No Suicidal Planning, No Homicidal Ideation, No Paranoid Ideation - Sensorium Experiencing Hallucinations: No, Sensorium is Clear Type of Hallucinations: Visual: No, Auditory: No, Command: No - Level of Consciousness Level of Consciousness: Alert Orientation: Yes Intact, Yes Orientated to Time, Yes Orientated to Place, Yes Orientated to Person - Impulse Control Impulse Control: Impaired - Insight and Judgement Insight and Judgement: Impaired - Group Participation Particating in Group Activities: Yes - Medication Management Medication Management Adherence: Yes - Additional Observations Comments: Kayce appears well and reasonably happy. Groups like [facility] and AA are making a positive difference in encouraging Robert. He is going to selected groups and spending his time reading a book. Assessment - Assessment Merits Inpatient Hospitalization: For Stabilization, For Discharge Planning, Pending Safe DC Plan Inpatient DSM-V Dx: F10.24 Clinical Impression: Kayce is motivated to go to rehab and wants to do research to find out where he can go. He is psychiatrically stable at this time. His mentation indicates some dementia-type deficits. He is psychiatrically ready to work on his sobriety and will benefit from moving on to rehab. This assessment remains true and Robert grows more and more ready to advance to his next treatment setting. Plan - Plan Treatment Plan: Name: KAYCE ORTEGA Birthdate: 1950 [id number] Medications: Current Medications Acetaminophen (Tylenol Tab*) 650 mg PO Q4H PRN PRN Reason: PAIN or TEMP > 101 F Al Hydrox/Mg Hydrox/Simethicone (Maalox Plus*) 30 ml PO Q4H PRN PRN Reason: INDIGESTION Amlodipine Besylate (Norvasc Tab*) 10 mg PO DAILY [facility] Last Admin: 05/27/18 09:07 Dose: 10 mg Folic Acid (Folvite Tab*) 1 mg PO DAILY [facility] Last Admin: 05/27/18 09:07 Dose: 1 mg Gabapentin (Neurontin Cap(*)) 200 mg PO TID [facility] Last Admin: 05/27/18 14:26 Dose: 200 mg Loperamide HCl (Imodium Cap*) 2 mg PO .SEE DIRECTIONS PRN PRN Reason: AFTER EACH LOOS STOOL Multi-Ingredient Liniment/Rub (Manohar Murphy*) 1 applic TOPICAL BID [facility] Last Admin: 05/27/18 09:11 Dose: 1 applic Naproxen (Naprosyn Tab*) 500 mg PO DAILY PRN PRN Reason: PAIN Last Admin: 05/27/18 09:12 Dose: 500 mg Thiamine HCl (Vitamin B-1 Tab*) 100 mg PO DAILY [facility] Last Admin: 05/27/18 09:10 Dose: 100 mg - Discharge Plan Discharge Plan: Drug/Alcohol Rehab Additional Comments: Kayce wants to go to inpatient rehabilitation for alcohol use. We are helping him accomplish this goal. He has filled out the [facility] packet and is looking for sober housing, as well. He continues to choose where he would like to go and that plan changes daily; nevertheless, he is consistent in wanting to advance to rehab. When he arrived, [facility] was his choice. Currently he's looking at [facility] as his first choice. Much of the choice will be made by insurance coverage.
[2018-05-28] MEDS: amLODIPine TAB* 5 MG PO SCH (09:16)
[2018-05-28] MEDS: Analgesic BALM* 114 GM TOPICAL SCH ×2 (09:16→20:03)
[2018-05-28] MEDS: Folic Acid TAB* 1 MG PO SCH (09:16)
[2018-05-28] MEDS: Thiamine TAB* 100 MG TAB PO SCH (09:17)
[2018-05-28] MEDS: Gabapentin CAP(*) 100 MG PO SCH ×3 (09:17→20:02)
--- NOTE | 2018-05-28 11:49 | PN ---
MHU: Group Therapy Note - Service Type Service Type: [id number] Group Psychotherapy - Cognitive Behavioral Group Therapy ( CBT):Patient was attentive and participatory in CBT programming this morning, and remained in good behavioral control. Patient expressed positive insights regarding relevant treatment interventions and goals.
--- NOTE | 2018-05-28 16:13 | PN ---
MHU: Group Therapy Note - Service Type Service Type: [id number] Group Psychotherapy - Medication Education Group: Patient attended group and presented with flat affect that did not vary with discussion. Although responsive to direct prompts to respond to questions, patient did not engage in spontaneous conversation.
[2018-05-29] MEDS: amLODIPine TAB* 5 MG PO SCH (08:40)
[2018-05-29] MEDS: Analgesic BALM* 114 GM TOPICAL SCH ×2 (08:40→20:53)
[2018-05-29] MEDS: Gabapentin CAP(*) 100 MG PO SCH ×3 (08:41→20:54)
[2018-05-29] MEDS: Thiamine TAB* 100 MG TAB PO SCH (08:41)
[2018-05-29] MEDS: Folic Acid TAB* 1 MG PO SCH (08:41)
--- NOTE | 2018-05-29 11:40 | PN ---
MHU: Group Therapy Note - Service Type Service Type: [id number] Group Psychotherapy - Cognitive Behavioral Group Therapy ( CBT):Patient was attentive and participatory in CBT programming this morning, and remained in good behavioral control. Patient expressed positive insights regarding relevant treatment interventions and goals.
--- NOTE | 2018-05-29 16:52 | PN ---
Subjective - Subjective Date of Service: 05/29/18 Service Type: 88854 Hosp care 15 min low complexity Subjective: Patient is lying in bed, reading AA textbook upon approach. He states he is feeling "good" and motivated to pursue inpatient rehab. He is knowledgeable of facilities and protocols for referrals. He states he is hoping for bed availability at [facility] or [facility]. He pleasantly denies need for further assessment from staff writer. Objective - Appearance Appearance: Well Developed/Nourished Dysmorphic Features: No Hygiene: Normal Grooming: Well Kept - Behavior Psychomotor Activities: Normal Exhibits Abnormal Movement: No - Attitude and Relatedness Attitude and Relatedness: Cooperative Eye Contact: Good - Speech Quality: Unpressured Latencies: Normal Quantity: Appropriate - Mood Patient's Decription of Mood: "Good" - Affect Observed Affect: Good Affect Consistent with: Euthymia - Thought Process Patient's Thought Process: Coherent, Goal Directed Thought Content: No Passive Wish, No Suicidal Planning, No Homicidal Ideation, No Paranoid Ideation - Sensorium Experiencing Hallucinations: No, Sensorium is Clear Type of Hallucinations: Visual: No, Auditory: No, Command: No - Level of Consciousness Level of Consciousness: Alert Orientation: Yes Intact, Yes Orientated to Time, Yes Orientated to Place, Yes Orientated to Person - Impulse Control Impulse Control: Intact - Insight and Judgement Insight and Judgement: Fair - Group Participation Particating in Group Activities: Yes - Medication Management Medication Management Adherence: Yes Assessment - Assessment Merits Inpatient Hospitalization: For Immediate Safety, For Stabilization, For Discharge Planning Inpatient DSM-V Dx: F10.24 Clinical Impression: 68yo white male with extensive history of alcohol use disorder, who presented to ED with suicidal ideation. He presents with mild cognitive deficits that may be age-related, compounded by severe alcohol use. He is able to care for self in structured environment and able to participate fully in discharge planning. He is awaiting bed availability at an accepting inpatient substance use treatment facility. Due to history of impaired impulse control, he necessitates bed-to-bed transfer. Plan - Plan Treatment Plan: Name: KAYCE ORTEGA Birthdate: 1950 [id number] continue acute intensive psychiatric treatment and current medications. may decrease to q30min observation and allow staff pass. discharge pending to available bed at an accepting inpatient substance use treatment facility. Continued Medication Management: Continue Outpt Medication Medications: Current Medications Acetaminophen (Tylenol Tab*) 650 mg PO Q4H PRN PRN Reason: PAIN or TEMP > 101 F Al Hydrox/Mg Hydrox/Simethicone (Maalox Plus*) 30 ml PO Q4H PRN PRN Reason: INDIGESTION Amlodipine Besylate (Norvasc Tab*) 10 mg PO DAILY [facility] Last Admin: 05/29/18 08:40 Dose: 10 mg Folic Acid (Folvite Tab*) 1 mg PO DAILY [facility] Last Admin: 05/29/18 08:41 Dose: 1 mg Gabapentin (Neurontin Cap(*)) 200 mg PO TID [facility] Last Admin: 05/29/18 13:45 Dose: 200 mg Loperamide HCl (Imodium Cap*) 2 mg PO .SEE DIRECTIONS PRN PRN Reason: AFTER EACH LOOS STOOL Multi-Ingredient Liniment/Rub (Manohar Murphy*) 1 applic TOPICAL BID [facility] Last Admin: 05/29/18 08:40 Dose: 1 applic Naproxen (Naprosyn Tab*) 500 mg PO DAILY PRN PRN Reason: PAIN Last Admin: 05/27/18 09:12 Dose: 500 mg Thiamine HCl (Vitamin B-1 Tab*) 100 mg PO DAILY [facility] Last Admin: 05/29/18 08:41 Dose: 100 mg - Discharge Plan Discharge Plan: Drug/Alcohol Rehab
[2018-05-30] MEDS: Naproxen TAB* 250 MG PO PRN (07:31)
[2018-05-30] MEDS: Gabapentin CAP(*) 100 MG PO SCH ×3 (09:40→20:40)
[2018-05-30] MEDS: Folic Acid TAB* 1 MG PO SCH (09:40)
[2018-05-30] MEDS: amLODIPine TAB* 5 MG PO SCH (09:40)
[2018-05-30] MEDS: Thiamine TAB* 100 MG TAB PO SCH (09:40)
[2018-05-30] MEDS: Analgesic BALM* 114 GM TOPICAL SCH ×2 (09:40→20:42)
[2018-05-31] MEDS: Folic Acid TAB* 1 MG PO SCH (09:17)
[2018-05-31] MEDS: Gabapentin CAP(*) 100 MG PO SCH ×3 (09:17→20:11)
[2018-05-31] MEDS: Thiamine TAB* 100 MG TAB PO SCH (09:18)
[2018-05-31] MEDS: Analgesic BALM* 114 GM TOPICAL SCH ×2 (09:18→22:25)
[2018-05-31] MEDS: amLODIPine TAB* 5 MG PO SCH (09:18)
[2018-05-31] MEDS: Naproxen TAB* 250 MG PO PRN (09:18)
[2018-06-01 08:15] VITALS: BP 150/78
[2018-06-01] MEDS: Gabapentin CAP(*) 100 MG PO SCH ×3 (08:40→20:06)
[2018-06-01] MEDS: amLODIPine TAB* 5 MG PO SCH (08:42)
[2018-06-01] MEDS: Thiamine TAB* 100 MG TAB PO SCH (08:43)
[2018-06-01] MEDS: Folic Acid TAB* 1 MG PO SCH (08:43)
[2018-06-01] MEDS: Analgesic BALM* 114 GM TOPICAL SCH ×2 (10:26→20:07)
--- NOTE | 2018-06-01 15:11 | PN ---
Subjective - Subjective Date of Service: 06/01/18 Service Type: 50223 Hosp care 15 min low complexity Subjective: Kayce has sketched out a plan that is quite comprehensive which includes plans for him to go to a friend "Anthony's" house and then on to [facility] rehab. He is hoping this plan will work because it will allow him to get some clothing and belongings together. Objective - Appearance Appearance: Healthy Appearing Dysmorphic Features: No Hygiene: Normal Grooming: Well Kept - Behavior Psychomotor Activities: Normal Exhibits Abnormal Movement: No - Attitude and Relatedness Attitude and Relatedness: Cooperative Eye Contact: Good - Speech Quality: Unpressured Latencies: Normal Quantity: Appropriate - Mood Patient's Decription of Mood: "Good" - Affect Observed Affect: Good Affect Consistent with: Euthymia - Thought Process Patient's Thought Process: Coherent, Goal Directed Thought Content: No Passive Wish, No Suicidal Planning, No Homicidal Ideation, No Paranoid Ideation - Sensorium Experiencing Hallucinations: No, Sensorium is Clear Type of Hallucinations: Visual: No, Auditory: No, Command: No - Level of Consciousness Level of Consciousness: Alert Orientation: Yes Intact, Yes Orientated to Time, Yes Orientated to Place, Yes Orientated to Person - Impulse Control Impulse Control: Impaired - Insight and Judgement Insight and Judgement: Good - Group Participation Particating in Group Activities: Yes - Medication Management Medication Management Adherence: Yes - Additional Observations Comments: Kayce appears well and reasonably happy. Groups like [facility] and AA are making a positive difference in encouraging Robert. He is going to selected groups and has found a peer with whom he gets along very well. He is excited about taking the next step in his life. Assessment - Assessment Merits Inpatient Hospitalization: For Immediate Safety, For Discharge Planning, Pending Safe DC Plan Inpatient DSM-V Dx: F10.24 Clinical Impression: He is psychiatrically stable at this time. His mentation indicates some dementia -type deficits. He is psychiatrically ready to work on his sobriety and will benefit from moving on to rehab. Robert grows more and more ready to advance to his next treatment setting. He is able to make decisions that appear to push his plans forward. Plan - Plan Treatment Plan: Name: KAYCE ORTEGA Birthdate: 1950 [id number] Medications: Current Medications Acetaminophen (Tylenol Tab*) 650 mg PO Q4H PRN PRN Reason: PAIN or TEMP > 101 F Al Hydrox/Mg Hydrox/Simethicone (Maalox Plus*) 30 ml PO Q4H PRN PRN Reason: INDIGESTION Amlodipine Besylate (Norvasc Tab*) 10 mg PO DAILY [facility] Last Admin: 06/01/18 08:42 Dose: 10 mg Folic Acid (Folvite Tab*) 1 mg PO DAILY [facility] Last Admin: 06/01/18 08:43 Dose: 1 mg Gabapentin (Neurontin Cap(*)) 200 mg PO TID [facility] Last Admin: 06/01/18 14:31 Dose: 200 mg Loperamide HCl (Imodium Cap*) 2 mg PO .SEE DIRECTIONS PRN PRN Reason: AFTER EACH LOOS STOOL Multi-Ingredient Liniment/Rub (Manohar Murphy*) 1 applic TOPICAL BID [facility] Last Admin: 06/01/18 10:26 Dose: Not Given Naproxen (Naprosyn Tab*) 500 mg PO DAILY PRN PRN Reason: PAIN Last Admin: 05/31/18 09:18 Dose: 500 mg Thiamine HCl (Vitamin B-1 Tab*) 100 mg PO DAILY [facility] Last Admin: 06/01/18 08:43 Dose: 100 mg - Discharge Plan Discharge Plan: Outpatient Follow Up Additional Comments: Kayce wants to go to inpatient rehabilitation for alcohol use. We are helping him accomplish this goal. He has filled out the [facility] packet and is looking for sober housing, as well. He continues to choose where he would like to go and that plan changes daily; nevertheless, he is consistent in wanting to advance to rehab. At this point, Kayce is accepted into [facility] and would like to go to a friend's house before proceeding to [facility] so that he can gather belongings. We will investigate this possibility and once we are satisfied that he can successfully transition to rehab, he will be discharged.
[2018-06-02] MEDS: Gabapentin CAP(*) 100 MG PO SCH (08:52)
[2018-06-02] MEDS: Folic Acid TAB* 1 MG PO SCH (08:52)
[2018-06-02] MEDS: amLODIPine TAB* 5 MG PO SCH (08:53)
[2018-06-02] MEDS: Thiamine TAB* 100 MG TAB PO SCH (08:53)
[2018-06-02] MEDS: Analgesic BALM* 114 GM TOPICAL SCH (08:55)
--- NOTE | 2018-06-03 21:10 | DS ---
DISCHARGE SUMMARY: DATE OF ADMISSION: 05/21/18 DATE OF DISCHARGE: 06/03/18 SUPERVISING PHYSICIAN: Edgar Lara MD * (DICTATED BY PORTIA LUNDBERG NP ) DIAGNOSIS: [place] I: Substance-induced mood disorder, alcohol abuse. CONDITION AT THE TIME OF DISCHARGE: Improved, psychiatrically cleared, stable. Participated in groups, was social with peers. He has done well here psychiatrically. He will be attending [facility] eventually and is going to [facility] now. MENTAL STATUS EXAMINATION: At the time of discharge, the patient is calm, cooperative, and makes good eye contact. Alert and oriented x3. His grooming is good. His speech pace is normal. His thought processes are logical. He is not psychotic, not delusional. Denies AH, VH, SI, and HI. Insight is fair. Judgment is good. He is willing to follow up. DISCHARGE INSTRUCTIONS TO THE PATIENT: A. Medications: 1. Amlodipine 10 mg p.o. daily. 2. Folic acid 1 mg daily. 3. Gabapentin 200 mg t.i.d. 4. [place] apply b.i.d. 5. Naproxen 500 mg daily p.r.n. 6. Thiamine 100 mg daily. B. Diet is regular. C. Activities: As tolerated. Robert is a nonsmoker. There are no studies pending at the time of discharge. D. Followup care: Robert is going to [facility] in [place]. E. Substance abuse followup: Again, Cooper is referred to rehab for substance abuse treatment and medication. HOSPITAL COURSE: Part A: Chief complaint: "I wanna take all my Norvasc and drink a lot and go and fall asleep." The patient is a 68-year-old single white man with a history of alcohol abuse who arrives, brought by a taxi cab and on a voluntary status after determining that he was going to refill his medication and take it all while drinking alcohol. This is a very common story for Robert as he has been to this hospital almost 20 times with the same presentation. He was in [place] and sober for a year but he went to [place], became intoxicated with his brother and ended up in [place] where he is a frequent resident and he continued drinking. He called his AA sponsor while he was thinking of suicide and decided that he should come to the hospital. At this point, his sleep is disrupted as is typical in alcohol abuse. While he has some guilt, he is also proud that he came to the hospital. His appetite is fine. His speech is circumstantial and he was having suicidal ideation but he is not anymore. Part B: Psychiatric treatment was rendered. Robert was admitted to the adult behavioral unit and placed on 15-minute checks for safety. Robert did well on the unit and went to groups. He interacted with peers well. As time went on, he did not go to as many groups, but only those he felt were relevant to him. No new meds were started other than vitamins related to the [place] protocol. We did perform a MoCA at the beginning of his stay. He scored 19/30 with the largest deficits being on executive function. He was pleasant and jolly throughout his stay, stating many times "I'm getting there." He states he does not want to drink anymore and he is eager to go to rehab. He is improved. A followup MoCA was not done. It is possible that he would have improved with a less recent intake of alcohol but he is no longer suicidal, his concentration appears to have improved and he does not appear to feel any guilt at least overtly about what brought him to the hospital. PORTIA LUNDBERG, AUDELIA [id number]/CPS #: [id number] PENNY
== END 2018-06-02 12:30 | DRG 897 ==
LOC: ED 17:42 → BSU 05-21 02:25
PROVIDERS: ADMIT Psychiatry & Neurology Psychiatry; ATTEND Psychiatry & Neurology Psychiatry
PROC: HZ2ZZZZ Detoxification Services for Substance Abuse Treatment (ICD-10-PCS; principal; 2018-05-21)
DX: F10.24 Alcohol dependence with alcohol-induced mood disorder (principal); R45.851 Suicidal ideations; M54.30 Sciatica, unspecified side; I10 Essential (primary) hypertension; Z79.899 Other long term (current) drug therapy; Z88.8 Allergy status to other drugs, medicaments and biological substances; Z81.1 Family history of alcohol abuse and dependence; Z81.8 Family history of other mental and behavioral disorders
CPT/HCPCS: 36415; 80053; 80061; 80307; 80320; 80329; 81003; 81015; 83036; 84443; 85025; 90853; 99222; 99231; 99238; 99285; A9270-GY; G0480

== ENCOUNTER 2018-06-05 12:13 | Emergency (ER) | payer SELFPAY ==
[2018-06-05 12:42] VITALS: BP 150/77
== END 2018-06-05 14:45 | disposition left against medical advice (07) ==
LOC: ED 12:13
DX: Z53.21 Procedure and treatment not carried out due to patient leaving prior to being seen by health care provider (principal)

== ENCOUNTER 2018-06-05 18:01 | Emergency (ER) | payer SELFPAY ==
[2018-06-05] MEDS ORDERED: LORazepam INJ* 2 MG/ML 1 ML VIAL IV PUSH ONE (18:39)
[2018-06-05] MEDS ORDERED: NS 0.9% 1000 ML* 1,000 ML IV ONE (18:39)
[2018-06-05] MEDS ORDERED: Thiamine IV* 100 MG, Folic Acid IV* 1 MG, Multiple Vitamin IV ADULT* 10 ML in NS 0.9% 1... IV ONE (18:44)
[2018-06-05 19:11] LABS: ABS Basophils 0.1 10^3/ul (0-0.2); ABS Eosinophils 0 10^3/ul (0-0.6); ABS Lymphocytes 1.9 10^3/ul (1.0-4.8); ABS Monocytes 0.5 10^3/ul (0-0.8); ABS Nucleated RBC 0 10^3/ul; Eosinophil % 0.4 % (0-6); Hematocrit 40 % (42-52); Hemoglobin 13.8 g/dl (14.0-18.0); Lymphocyte % 29.8 % (25-47); Mean Corpuscular HGB Conc 35 g/dl (31-36); Mean Corpuscular Hemoglobin 30 pg (27-31); Mean Corpuscular Volume 88 fL (80-94); Nucleated Red Blood Cells % 0.1; Platelet Count 262 10^3/ul (150-450); Red Blood Count 4.53 10^6/ul (4.00-5.40); Red Cell Distribution Width 14 % (10.5-15); White Blood Count 6.5 10^3/ul (3.5-10.8)
[2018-06-05 19:30] LABS: EGFR Non-African American 120.8 (>60)
--- NOTE | 2018-06-05 21:51 | ED ---
Complex/Multi-Sys Presentation - HPI Summary HPI Summary: The pt is a 68 y/o male with a hx of EtOH abuse BIBA to [facility] c/o of a seizure at 08:00 today morning. He notes MELENDEZ with a severity of 7/10. He attempted to sign into the ED today but left without being seen then drank and walked to a [place] ambulance.The pt he is not sure whether he wants to go through rehabilitation although the has been given rehab information. The pt is not actively going through withdrawal. 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 Negative: Fever - Allergies/Home Medications Allergies/Adverse Reactions: Allergies Allergy/AdvReac Type Severity Reaction Status Date / Time acamprosate Allergy Intermediate See Comment Verified 06/08/18 15:19 PMH/Surg Hx/FS Hx/Imm Hx Previously Healthy: No Endocrine/Hematology History: Denies: Hx Sickle Cell Disease Cardiovascular History: Reports: Hx Hypertension GI History: Reports: Other GI Disorders - Pt reports periods of incontinence, especially when withdrawing from ETOH History: Denies: Hx Dialysis Musculoskeletal History: Reports: Hx Arthritis - PER PT REPORT TO RIGHT LEG/KNEE , Hx Back Problems Denies: Hx Osteoporosis Sensory History: Reports: Hx Cataracts, Other Sensory Impairments - both eyes with lens implants Denies: Hx Contacts or Glasses, Hx Legally Blind, Hx Deafness, Hx Hearing Aid Opthamlomology History: Reports: Hx Cataracts, Other Sensory Impairments - both eyes with lens implants Denies: Hx Contacts or Glasses, Hx Legally Blind Psychiatric History: Reports: Hx Anxiety, Hx Depression, Hx Inpatient Treatment , Hx Community Mental Health Tx, Hx Suicide Attempt, Hx Substance Abuse Denies: Hx Eating Disorder, Hx of Violent Episodes Against Others - Surgical History Surgery Procedure, Year, and Place: Cataract x 2 Infectious Disease History: No Infectious Disease History: Denies: Traveled Outside the US in Last 30 Days - Family History Known Family History: Positive: Other - Anxiety, depression, EtOH abuse Family History: Hx of EtOH in family. - Social History Occupation: Unemployed Lives: Alone Alcohol Use: recent relapse after year of sobriety Alcohol Amount: started 6-pack/day, moving up to up to 12 pack day over 8 day period Hx Substance Use: No Substance Use Type: Reports: None Substance Use Comment - Amount & Last Used: Pt is a chronic alcoholic Hx Tobacco Use: No Smoking Status (MU): Never Smoked Tobacco Have You Smoked in the Last Year: No Review of Systems Negative: Fever Negative: Blurred Vision Negative: Epistaxis Negative: Palpitations, Chest Pain Negative: Shortness Of Breath Negative: Abdominal Pain, Vomiting, Diarrhea, Nausea Negative: hematuria Negative: Decreased ROM Negative: Rash Neurological: Other - Positive: Seizure Positive: Headache Psychological: Normal All Other Systems Reviewed And Are Negative: No Physical Exam - Summary Physical Exam Summary: Appearance: Alert, conversive, nontoxic appearing Skin: Warm, dry, no mottling, no rashes, no contusions HEENT: EOMI, PERRL, moist mucous membranes Neck: No masses on the neck, supple Respiratory: Clear to auscultation, breath sounds present, no rales, no rhonchi , no wheezes Cardiovascular: RRR, pulses are symmetrical in both lower and upper extremities Abdomen: Soft, non-tender Bowel Sounds: Present Musculoskeletal: No CVA tenderness, no obvious deformity, moving all extremities in a grossly normal manner Neurological: A&Ox3, CN II-XII Intact, moving all extremities symmetrically Psychiatric: Normal affect and mood Triage Information Reviewed: Yes Vital Signs On Initial Exam: Initial Vitals Pulse Resp BP Pulse Ox 78 22 161/94 92 06/05/18 18:16 06/05/18 18:16 06/05/18 18:16 06/05/18 18:16 Vital Signs Reviewed: Yes Diagnostics - Vital Signs Vital Signs Temp Pulse Resp BP Pulse Ox 06/05/18 21:00 69 19 93 06/05/18 20:47 68 16 114/64 92 06/05/18 20:16 74 12 126/78 90 06/05/18 20:00 71 11 90 06/05/18 19:46 68 18 119/79 90 06/05/18 19:17 19 127/72 06/05/18 19:00 19 06/05/18 18:47 78 17 145/76 91 06/05/18 18:46 20 06/05/18 18:17 99.4 F 83 17 161/94 92 06/05/18 18:16 78 22 161/94 92 - Laboratory Lab Results: Lab Results 06/05/18 06/05/18 Range/Units 18:56 18:56 WBC 6.5 (3.5-10.8) 10^3/ul RBC 4.53 (4.00-5.40) 10^6/ul Hgb 13.8 L (14.0-18.0) g/dl Hct 40 L (42-52) % MCV 88 (80-94) fL MCH 30 (27-31) pg MCHC 35 (31-36) g/dl RDW 14 (10.5-15) % Plt Count 262 (150-450) 10^3/ul MPV 7.0 L (7.4-10.4) um3 Neut % (Auto) 60.9 (38-83) % Lymph % (Auto) 29.8 (25-47) % [place] % (Auto) 7.9 H (0-7) % Eos % (Auto) 0.4 (0-6) % Baso % (Auto) 1.0 (0-2) % Absolute Neuts (auto) 4.0 (1.5-7.7) 10^3/ul Absolute Lymphs (auto) 1.9 (1.0-4.8) 10^3/ul Absolute Monos (auto) 0.5 (0-0.8) 10^3/ul Absolute Eos (auto) 0 (0-0.6) 10^3/ul Absolute Basos (auto) 0.1 (0-0.2) 10^3/ul Absolute Nucleated RBC 0 10^3/ul Nucleated RBC % 0.1 Sodium 139 (135-145) mmol/L Potassium 3.6 (3.5-5.0) mmol/L Chloride 105 (101-111) mmol/L Carbon Dioxide 23 (22-32) mmol/L Anion Gap 11 (2-11) mmol/L BUN 8 (6-24) mg/dL Creatinine 0.66 L (0.67-1.17) mg/dL Est GFR ( Amer) 146.1 (>60) Est GFR (Non-Af Amer) 120.8 (>60) BUN/Creatinine Ratio 12.1 (8-20) Glucose 95 (70-100) mg/dL Calcium 8.6 (8.6-10.3) mg/dL Magnesium 2.0 (1.9-2.7) mg/dL Total Bilirubin 0.40 (0.2-1.0) mg/dL AST 27 (13-39) U/L ALT 18 (7-52) U/L Alkaline Phosphatase 53 (34-104) U/L Troponin I 0.01 (<0.04) ng/mL Total Protein 7.1 (6.4-8.9) g/dL Albumin 4.1 (3.2-5.2) g/dL Globulin 3.0 (2-4) g/dL Albumin/Globulin Ratio 1.4 (1-3) Lipase 24 (11.0-82.0) U/L TSH 3.18 (0.34-5.60) mcIU/mL Serum Alcohol 217 H (<10) mg/dL Result Diagrams: 06/05/18 18:56 06/05/18 18:56 Lab Statement: Any lab studies that have been ordered have been reviewed, and results considered in the medical decision making process. - EKG 1856 Cardiac Rate: NL - 73 bpm EKG Interpretation: Normal QRS; Normal QTC; Normal ST wave; Normal axes 0 EKG Interpretation: Normal QRS; Normal QTC; Normal ST wave; Normal axes Complex Multi-Symp Course/Dx Course Of Treatment: 22:00- The pt was signed out to Dnoovan Mendoza. He is awaiting dispo. - Diagnoses Provider Diagnoses: Alcohol dependence Discharge - Sign-Out/Discharge Documenting (check all that apply): Sign-Out Patient Signing out patient TO: Donovan Luna - Time-22:00 - Discharge Plan Condition: Improved Disposition: HOME Patient Education Materials: Alcohol Intoxication (ED), Abuse of Alcohol (ED) Referrals: No Primary Care Phys,NOPCP [Primary Care Provider] - Additional Instructions: Please get help for your alcohol dependence and abuse. return if worse or any new symptoms. Please take all medications as previously instructed. We will give you outpatient rehab and detox programs locally. - Billing Disposition and Condition Condition: IMPROVED Disposition: Home - Attestation Statements Document Initiated by Scribe: Yes Documenting Scribe: Fern Pizarro Provider For Whom Scribe is Documenting (Include Credential): Dr. Raquel Saravia MD Scribe Attestation: IFern , scribed for Dr. Raquel Saravia MD on 06/10/18 at 1138. Scribe Documentation Reviewed: Yes Provider Attestation: The documentation as recorded by the scribe, Fern Pizarro accurately reflects the service I personally performed and the decisions made by me, Dr. Raquel Saravia MD
[2018-06-06 00:03] VITALS: BP 141/100
--- NOTE | 2018-06-06 03:30 | ED ---
Progress - Progress Note Progress Note: This patient is signed out from Dr. Saravia, awaiting dispo. Discharge - Sign-Out/Discharge Documenting (check all that apply): Patient Departure - Discharged - Discharge Plan Condition: Improved Disposition: HOME Patient Education Materials: Alcohol Intoxication (ED), Abuse of Alcohol (ED) Referrals: No Primary Care Phys,NOPCP [Primary Care Provider] - Additional Instructions: Please get help for your alcohol dependence and abuse. return if worse or any new symptoms. Please take all medications as previously instructed. We will give you outpatient rehab and detox programs locally. - Attestation Statements Document Initiated by Scribe: Yes Documenting Scribe: Olesya Wagner Provider For Whom Scribe is Documenting (Include Credential): Donovan Luna MD Scribe Attestation: Olesya Davis, scribed for Donovan Luna MD on 06/06/18 at 0340.
== END 2018-06-06 00:27 | disposition home or self-care (01) ==
LOC: ED 18:01
DX: F10.10 Alcohol abuse, uncomplicated (principal); I10 Essential (primary) hypertension; R51 Headache
CPT/HCPCS: 36415; 80053; 80320; 83690; 83735; 84443; 84484; 85025; 93005; 96374; 99284; G0480; J2060; J3411

== ENCOUNTER 2018-06-07 17:39 | Inpatient (IN) | payer MEDICARE ==
[2018-06-07 18:22] LABS: ABS Basophils 0.1 10^3/ul (0-0.2); ABS Eosinophils 0.1 10^3/ul (0-0.6); ABS Lymphocytes 2.1 10^3/ul (1.0-4.8); ABS Monocytes 0.5 10^3/ul (0-0.8); ABS Neutrophils 3.5 10^3/ul (1.5-7.7); ABS Nucleated RBC 0 10^3/ul; Eosinophil % 1.1 % (0-6); Hematocrit 40 % (42-52); Hemoglobin 13.8 g/dl (14.0-18.0); Lymphocyte % 33.4 % (25-47); Mean Corpuscular HGB Conc 35 g/dl (31-36); Mean Corpuscular Hemoglobin 30 pg (27-31); Mean Corpuscular Volume 87 fL (80-94); Mean Platelet Volume 6.7 um3 (7.4-10.4); Nucleated Red Blood Cells % 0.1; Platelet Count 230 10^3/ul (150-450); Red Blood Count 4.54 10^6/ul (4.00-5.40); Red Cell Distribution Width 14 % (10.5-15); White Blood Count 6.2 10^3/ul (3.5-10.8)
[2018-06-07 18:29] LABS: Urine Appearance Clear; Urine Blood Negative (Negative); Urine Color Straw; Urine Ketones Negative (Negative); Urine Protein Negative (Negative); Urine Specific Gravity 1.002 (1.010-1.030); Urine Urobilinogen Negative (Negative)
--- NOTE | 2018-06-07 18:36 | ED ---
Psychiatric Complaint - HPI Summary HPI Summary: A 68 y/o male presents to ED c/o alcohol withdrawal symptoms. As per triage, " pt arrives via em[facility] bls with a complaint of sciatic issues, slipped disk, mental health problems and drinking problems. pt reports staying at the [facility] and "blowing my check" and being almost out of money. states he went to [place] and had a bottle of bleach. thought about drinking it "but i decided to have 2 shots of burbon and like 8 coors light instead". According to the patient, he has been experiencing alcohol withdrawals as he uses ETOH for his sciatia and slipped discs in his back which are extremely painful. He states that he gets numb from the ETOH and has SI. He would like to be admitted to mental health unit as he is unstable. He noted that he was sober for a while but now he drinks a 12-pack of coors light everyday and drinks at a local bar. He stated that he is going spatial. PMHx of depression, alcoholism and anxiety. - History Of Current Complaint Chief Complaint: EDMentalHealth Time Seen by Provider: 06/07/18 17:59 Hx Obtained From: Patient Onset/Duration: Sudden Onset, Still Present Timing: Constant Character: Depressed Aggravating Factor(s): Other - Pain in back Alleviating Factor(s): Nothing Related History: Positive For: Prior Psychiatric Issues Has Suicidal: Reports: Thoughts - Allergies/Home Medications Allergies/Adverse Reactions: Allergies Allergy/AdvReac Type Severity Reaction Status Date / Time acamprosate Allergy Intermediate See Comment Verified 06/05/18 18:22 PMH/Surg Hx/FS Hx/Imm Hx Endocrine/Hematology History: Denies: Hx Sickle Cell Disease Cardiovascular History: Reports: Hx Hypertension GI History: Reports: Other GI Disorders - Pt reports periods of incontinence, especially when withdrawing from ETOH History: Denies: Hx Dialysis Musculoskeletal History: Reports: Hx Arthritis - PER PT REPORT TO RIGHT LEG/KNEE , Hx Back Problems Denies: Hx Osteoporosis Sensory History: Reports: Hx Cataracts, Other Sensory Impairments - both eyes with lens implants Denies: Hx Contacts or Glasses, Hx Legally Blind, Hx Deafness, Hx Hearing Aid Opthamlomology History: Reports: Hx Cataracts, Other Sensory Impairments - both eyes with lens implants Denies: Hx Contacts or Glasses, Hx Legally Blind Psychiatric History: Reports: Hx Anxiety, Hx Depression, Hx Inpatient Treatment , Hx Community Mental Health Tx, Hx Suicide Attempt, Hx Substance Abuse Denies: Hx Eating Disorder, Hx of Violent Episodes Against Others - Surgical History Surgery Procedure, Year, and Place: Cataract x 2 Infectious Disease History: No Infectious Disease History: Denies: Traveled Outside the US in Last 30 Days - Family History Known Family History: Positive: Other - Anxiety, depression, EtOH abuse Family History: Hx of EtOH in family. - Social History Alcohol Use: recent relapse after year of sobriety Alcohol Amount: started 6-pack/day, moving up to up to 12 pack day over 8 day period Hx Substance Use: No Substance Use Type: Reports: None Substance Use Comment - Amount & Last Used: Pt is a chronic alcoholic Hx Tobacco Use: No Smoking Status (MU): Never Smoked Tobacco Have You Smoked in the Last Year: No Review of Systems Negative: Fever Positive: Other - POSITIVE: Back pain Neurological: Other - POSITIVE: SI Positive: Depressed All Other Systems Reviewed And Are Negative: Yes Physical Exam - Summary Physical Exam Summary: Appearance: Well appearing, no pain distress Skin: warm, dry, reflects adequate perfusion Head/face: normal Eyes: EOMI, SAMIR ENT: normal Neck: supple, non-tender Respiratory: CTA, breath sounds present Cardiovascular: RRR, pulses symmetrical Abdomen: non-tender, soft Bowel: present Musculoskeletal: normal, strength/ROM intact Neuro: normal, sensory motor intact, A&Ox3 Psych: depressive affect Triage Information Reviewed: Yes Vital Signs On Initial Exam: Initial Vitals Temp Pulse Resp BP Pulse Ox 99.9 F 82 19 153/80 91 06/07/18 17:44 06/07/18 17:44 06/07/18 17:44 06/07/18 17:44 06/07/18 17:44 Vital Signs Reviewed: Yes Diagnostics - Vital Signs Vital Signs Temp Pulse Resp BP Pulse Ox 06/07/18 17:44 99.9 F 82 19 153/80 91 - Laboratory Lab Results: Lab Results 06/07/18 06/07/18 Range/Units 18:12 18:19 WBC 6.2 (3.5-10.8) 10^3/ul RBC 4.54 (4.00-5.40) 10^6/ul Hgb 13.8 L (14.0-18.0) g/dl Hct 40 L (42-52) % MCV 87 (80-94) fL MCH 30 (27-31) pg MCHC 35 (31-36) g/dl RDW 14 (10.5-15) % Plt Count 230 (150-450) 10^3/ul MPV 6.7 L (7.4-10.4) um3 Neut % (Auto) 56.6 (38-83) % Lymph % (Auto) 33.4 (25-47) % [place] % (Auto) 8.0 H (0-7) % Eos % (Auto) 1.1 (0-6) % Baso % (Auto) 0.9 (0-2) % Absolute Neuts (auto) 3.5 (1.5-7.7) 10^3/ul Absolute Lymphs (auto) 2.1 (1.0-4.8) 10^3/ul Absolute Monos (auto) 0.5 (0-0.8) 10^3/ul Absolute Eos (auto) 0.1 (0-0.6) 10^3/ul Absolute Basos (auto) 0.1 (0-0.2) 10^3/ul Absolute Nucleated RBC 0 10^3/ul Nucleated RBC % 0.1 Urine Color Straw Urine Appearance Clear Urine pH 5.0 (5-9) Ur Specific [place] 1.002 L (1.010-1.030) Urine Protein Negative (Negative) Urine Ketones Negative (Negative) Urine Blood Negative (Negative) Urine Nitrate Negative (Negative) Urine Bilirubin Negative (Negative) Urine Urobilinogen Negative (Negative) Ur Leukocyte Esterase Negative (Negative) Urine Glucose Negative (Negative) Result Diagrams: 06/07/18 18:12 06/07/18 18:12 Lab Statement: Any lab studies that have been ordered have been reviewed, and results considered in the medical decision making process. Course/Dx - Course Course Of Treatment: A 68 y/o male presents to ED c/o alcohol withdrawal symptoms. According to the patient, he has been experiencing alcohol withdrawals as he uses ETOH for his sciatia and slipped discs in his back which are extremely painful. He states that he gets numb from the ETOH and has SI. He would like to be admitted to mental health unit as he is unstable. He noted that he was sober for a while but now he drinks a 12-pack of coors light everyday and drinks at a local bar. He stated that he is going spatial. PMHx of depression, alcoholism and anxiety. No laboratory scans were done. Blood work and UA were done. In the ED course, the patient recieved Librium. Patient will be signed out to Dr. Donovan Luna, awaiting sobriety and MHE, pending disposition at 2200 on 06/07/2018. - Differential Dx/Clinical Impression Provider Diagnosis: Alcohol intoxication Discharge - Sign-Out/Discharge Documenting (check all that apply): Sign-Out Patient Signing out patient TO: Donovan Luna Receiving patient FROM: Ever Mane - Discharge Plan Condition: Stable Referrals: No Primary Care Phys,NOPCP [Primary Care Provider] - - Billing Disposition and Condition Condition: STABLE - Attestation Statements Document Initiated by Lewibe: Yes Documenting Scribe: Esvin White Provider For Whom Lewibe is Documenting (Include Credential): Ever Mane MD Scribe Attestation: Esvin Davis, scribed for Ever Mane MD on 06/07/18 at 2141. Scribe Documentation Reviewed: Yes Provider Attestation: The documentation as recorded by the Esvin harris accurately reflects the service I personally performed and the decisions made by Ever mendieta MD
[2018-06-07 18:38] LABS: EGFR Non-African American 116.7 (>60)
[2018-06-07] MEDS ORDERED: chlordiazePOXIDE CAP* 25 MG PO ONE (19:07)
--- NOTE | 2018-06-07 22:20 | ED ---
Progress - Progress Note Progress Note: Pending med clearance, MHE Course/Dx - Course Course Of Treatment: A 68 y/o male presents to ED c/o alcohol withdrawal symptoms. According to the patient, he has been experiencing alcohol withdrawals as he uses ETOH for his sciatia and slipped discs in his back which are extremely painful. He states that he gets numb from the ETOH and has SI. He would like to be admitted to mental health unit as he is unstable. He noted that he was sober for a while but now he drinks a 12-pack of coors light everyday and drinks at a local bar. He stated that he is going spatial. PMHx of depression, alcoholism and anxiety. No laboratory scans were done. Blood work and UA were done. In the ED course, the patient recieved Librium. Patient will be signed out to Dr. Donovan Luna, awaiting sobriety and MHE, pending disposition at 2200 on 06/07/2018. - Diagnoses Provider Diagnoses: Alcohol intoxication Discharge - Sign-Out/Discharge Documenting (check all that apply): Sign-Out Patient, Receiving Sign-Out Signing out patient TO: Chris Birch - BECKY Receiving patient FROM: Ever Mane - Discharge Plan Condition: Stable Referrals: No Primary Care Phys,NOPCP [Primary Care Provider] - - Attestation Statements Document Initiated by Scribe: Yes Documenting Scribe: Anthony Atkins Provider For Whom Scribe is Documenting (Include Credential): Dr. Donovan Luna MD Scribe Attestation: Anthony Davis, scribed for Dr. Donovan Luna MD on 06/08/18 at 0643.
--- NOTE | 2018-06-08 06:59 | UC ---
- Progress Note Progress Note: 07:00- Received pt from Dr. Donovan Luna MD. The pt is awaiting MHE. 07:33- The pt has been cleared for a MHE 09:15 - Dr. Edgar Lara MD admitted the pt to [facility] with a final Dx of substance-induced mood disorder. The admission is voluntary. Course/Dx - Diagnoses Provider Diagnoses: Alcohol intoxication, Mood disorder Discharge - Sign-Out/Discharge Documenting (check all that apply): Patient Departure - Discharge Plan Condition: Stable Disposition: ADMITTED TO [facility] - Billing Disposition and Condition Condition: STABLE Disposition: Admitted to [facility] - Attestation Statements Document Initiated by Lewibe: Yes Documenting Scribe: Fern Pizarro Provider For Whom Gian is Documenting (Include Credential): Dr. Eyal Harris Attestation: Fern Davis, scribed for Dr. Eyal Perez on 06/08/18 at 1649. Scribe Documentation Reviewed: Yes Provider Attestation: The documentation as recorded by the Fern harris accurately reflects the service I personally performed and the decisions made by me, Dr. Eyal Perez
[2018-06-08] MEDS ORDERED: chlordiazePOXIDE CAP* 25 MG PO ONE (08:37)
--- NOTE | 2018-06-08 09:08 | PN ---
ED Flex Patient Progress Note Subjective: This is a 68 year-old M who is pending psychiatric evaluation secondary to ____ SI w/ ETOH dependency (withdrawal) and h/o depression/anxiety . Last night ETOH was 294. Renal and liver functions appear well. Reports h/o chronic Rt back and leg pain d/t disc herniation. He takes naproxen and gabapentin for this however also admits he uses ETOH to tx pain here. Recently seen here in ED for seizure and ETOH abuse (2-3 days ago). Admitted to [facility] 05/20 to 06/01 and d/c' d with plan of outpt ETOH dependence support - reports today he thinks he needs to go directly from here to rehab as he's not able to maintain sobriety on his own. Has had good results with swimming at [facility] for pain control in the past when actively sober and is hoping to get sober again but understands he needs lots of support to do this (ie. inpatient rehab). Has had 1+ years sobriety in the past while living in [place] and hopeful to get there again, but currently admits SI are looming. He was going to take all of his rx meds yesterday with alcohol so he could "go to sleep and not wake up again" but his Faith values steered him otherwise. He takes norvasc for BP but has not taken since here. Otherwise, no medical issues to report. Re: ETOH withdrawal, he reports he takes librium when he's sober but since relapsing on Friday, he has not taken this. He received 25mg last night and now he admits his shaking, sweats, lack of appetite and anxiety are starting to creep back. Denies hallucinations, chest pain, nausea, vomiting, diarrhea, abdominal pain. Objective: Vitals: Most recent vital signs documented below. General anxious but pleasant, Alert and oriented x3. Heart: rrr, S1/S2 - no murmur, no rubs, no gallops Lungs: CTA, breathing easily Integ: no signs of self harm AB: + BS, soft, NTTP Extremities: no edema NEURO: mild tremor PSYCH: anxious, but pleasant - mild perseveration on ETOH abuse, concerns about SI and wanting to get better Laboratory: Current laboratory results documented below. Assessment: 1) SI 2) ETOH dependence w/ withdrawal 3) Depression/anxiety 4) HTN 5) Chronic pain (LBP w/ radiculopathy) Plan: 1) Pending psychiatric evaluation. Will follow up daily __while in ED___. 2) WAM protcol has been implemented - libruim was given at 19:00 06/07/2018 at 25mg - will order 50mg dose as is recommended for withdrawal. Pt may require 100mg if not effective. Would also consider medical admission w/ MH consult if pt's stabaility waivers in flex as he has a recent h/o seizures. Discussed w/ Dr. Birch and will stay ahead of his sx here. Since he did not receive a banana bag upon arrival, will order now prior to admission to [facility]. 3) BP elevated which could be from lack of anti-hypertensive med and/or ETOH withdrawal. Will order norvasc pending med reconciliation (dose currently not clear in system) - fauzia March RN, calling pharmacy to verify meds. 4) Consider restarting gabapentin and naproxen - H&H stable with good renal function and no h/o GI bleed. Could also consider acetaminophen as pt's liver enzymes are WNL. Will discuss w/ Dr. Birch. Vital Signs Temp Pulse Resp BP Pulse Ox 98.9 F 90 20 161/74 96 06/08/18 07:25 06/08/18 07:25 06/08/18 07:25 06/08/18 07:25 06/08/18 07:25 Lab Results - Entire Visit 06/07/18 06/07/18 06/07/18 18:19 18:19 18:12 WBC RBC Hgb Hct MCV MCH MCHC RDW Plt Count MPV Neut % (Auto) Lymph % (Auto) [place] % (Auto) Eos % (Auto) Baso % (Auto) Absolute Neuts (auto) Absolute Lymphs (auto) Absolute Monos (auto) Absolute Eos (auto) Absolute Basos (auto) Absolute Nucleated RBC Nucleated RBC % Sodium 137 Potassium 3.5 Chloride 103 Carbon Dioxide 21 L Anion Gap 13 H BUN 5 L Creatinine 0.68 Est GFR ( Amer) 141.2 Est GFR (Non-Af Amer) 116.7 BUN/Creatinine Ratio 7.4 L Glucose 92 Calcium 8.7 Total Bilirubin 0.50 AST 36 ALT 30 Alkaline Phosphatase 57 Total Protein 7.2 Albumin 4.1 Globulin 3.1 Albumin/Globulin Ratio 1.3 TSH 3.12 Urine Color Straw Urine Appearance Clear Urine pH 5.0 Ur Specific [place] 1.002 L Urine Protein Negative Urine Ketones Negative Urine Blood Negative Urine Nitrate Negative Urine Bilirubin Negative Urine Urobilinogen Negative Ur Leukocyte Esterase Negative Urine Glucose Negative Salicylates < 2.50 Urine Opiates Screen None detected Acetaminophen < 15 Ur Barbiturates Screen None detected Ur Phencyclidine Scrn None detected Ur Amphetamines Screen None detected U Benzodiazepines Scrn None detected Urine Cocaine Screen None detected U Cannabinoids Screen None detected Serum Alcohol 294 H 06/07/18 18:12 WBC 6.2 RBC 4.54 Hgb 13.8 L Hct 40 L MCV 87 MCH 30 MCHC 35 RDW 14 Plt Count 230 MPV 6.7 L Neut % (Auto) 56.6 Lymph % (Auto) 33.4 [place] % (Auto) 8.0 H Eos % (Auto) 1.1 Baso % (Auto) 0.9 Absolute Neuts (auto) 3.5 Absolute Lymphs (auto) 2.1 Absolute Monos (auto) 0.5 Absolute Eos (auto) 0.1 Absolute Basos (auto) 0.1 Absolute Nucleated RBC 0 Nucleated RBC % 0.1 Sodium Potassium Chloride Carbon Dioxide Anion Gap BUN Creatinine Est GFR ( Amer) Est GFR (Non-Af Amer) BUN/Creatinine Ratio Glucose Calcium Total Bilirubin AST ALT Alkaline Phosphatase Total Protein Albumin Globulin Albumin/Globulin Ratio TSH Urine Color Urine Appearance Urine pH Ur Specific [place]agar Urine Protein Urine Ketones Urine Blood Urine Nitrate Urine Bilirubin Urine Urobilinogen Ur Leukocyte Esterase Urine Glucose Salicylates Urine Opiates Screen Acetaminophen Ur Barbiturates Screen Ur Phencyclidine Scrn Ur Amphetamines Screen U Benzodiazepines Scrn Urine Cocaine Screen U Cannabinoids Screen Serum Alcohol
[2018-06-08] MEDS ORDERED: Thiamine IV* 100 MG, Folic Acid IV* 1 MG, Multiple Vitamin IV ADULT* 10 ML in NS 0.9% 1... IV ONE ×2 (09:40→10:00)
[2018-06-08] MEDS ORDERED: amLODIPine TAB* 5 MG PO ONE (09:40)
[2018-06-08] MEDS ORDERED: Al Hydrox/Mg Hydrox/Simet LIQ* 30 ML UDC PO PRN (10:35)
[2018-06-08] MEDS ORDERED: Thiamine IV* 100 MG/ML 2 ML VIAL IM ONE (10:39)
[2018-06-08] MEDS: Thiamine TAB* 100 MG TAB PO SCH (13:27)
[2018-06-08] MEDS: Folic Acid TAB* 1 MG PO SCH (13:27)
[2018-06-08] MEDS: LORazepam TAB(*) 1 MG PO SCH (15:12)
[2018-06-09] MEDS: Folic Acid TAB* 1 MG PO SCH (08:40)
[2018-06-09] MEDS: Multivitamins/Minerals TAB PO SCH (08:40)
[2018-06-09] MEDS: Thiamine TAB* 100 MG TAB PO SCH (08:40)
[2018-06-09] MEDS: LORazepam TAB(*) 1 MG PO SCH (14:14)
--- NOTE | 2018-06-09 18:14 | HP ---
HISTORY AND PHYSICAL: DATE OF ADMISSION: 06/08/18 PROVIDER: Christelle Parra NP, in Psychiatry. SUPERVISING PHYSICIAN: Edgar Lara MD * (DICTATED BY CHRISTELLE PARRA NP ) JUSTIFICATION FOR ADMISSION: The patient is in need of 24-hour supervision and care secondary to suicidal ideation, brought on in a context of alcohol intoxication. CHIEF COMPLAINT: "I am not a superman." HISTORY OF PRESENT ILLNESS: The patient is an 68-year-old single white male with a history of alcoholism and multiple admissions, who arrives by ambulance on a voluntary status following his plan to overdose on Norvasc and drink himself to . Instead, he flushed the pills down the toilet stating he did not really want to and he "checks myself in" to the hospital to get sober and then to come to this unit. Robert recently was on the unit, he left the day before going to rehab in order to get his things together. He creates to plan by himself to go to his AA [facility] house and then have that person take him to rehab in [place], but as Robert says he "took a right turn" and ended up going on a drinking binge for 6 days. Robert acknowledges that he is an alcoholic. He also wants to have his right sciatic nerve repaired because right now he says it feels like a toothache that is going down his leg. When questioned further about his reasoning behind wanting to get that fixed the same time he is doing alcohol rehab, he stated that he has waited long enough and now it is time to fix it and he would not make someone with the toothache or an abscess tooth wait that long. At that point, when I pointed out he had been sober for a year and did not do anything to take care of it, he stated I am not superman. PAST PSYCHIATRIC HISTORY: He has been admitted almost [address] [facility] and has been discharged as many times to both outpatient rehab and homeless shelters. He denies a history of violence. He denies access to weapons. He denies a traumatic past. He denies a traumatic brain injury. He has previously taken Celexa, but he does not want to take it at this time. Currently, he is taking Norvasc, naproxen, and gabapentin. PAST MEDICAL HISTORY: 1. He has sciatic pain. 2. Hypertension. 3. Ruptured disk in his back. ALLERGIES: He states he is allergic to CAMPRAL. FAMILY HISTORY: He is unclear about this. He just says that mom and dad were drinkers. He states that his brother may have bipolar disorder and is chemically addicted. The other brother drinks alcohol as well, although I do not know how heavy a drinker he is and his sister, Beverley, it was not mentioned whether she uses substances or has any psychiatric illnesses. SUBSTANCE ABUSE: He is an alcohol user. He has an AA sponsor. He does not smoke cigarettes. He does not use other drugs. SOCIAL HISTORY: He has 2 brothers and a sister. The farthest away is his brother in [place]. He has another brother who lives on [address]. He was once employed. He is unable to give a good history of his employment at this time. He has no legal problems at this time. REVIEW OF SYSTEMS: The patient reports feeling fatigued. He denies shortness of breath, heat or cold intolerance, chest pain, or abdominal pain. He denies neurological symptoms. He denies fevers or changes in weight. PHYSICAL EXAMINATION On 06/09/18, temperature 97.3, pulse 77, respirations 16, O2 sat 100, blood pressure 133/85. For further exam data, please see emergency department records. LABORATORY DATA: On 06/07/18, his hemoglobin was low at 13.8, hematocrit was low at 40, MPV is low at 6.7, monocyte percentage high at 8, carbon dioxide is low at 21, anion gap is high at 13, BUN is low at 5. BUN and creatinine ratio 7.4. Urine specific gravity 1.002. Serum alcohol at 1959, on 06/07/18 was 294. His hemoglobin A1c was 5.1. His triglycerides were 79, cholesterol 179, LDL cholesterol 95. HDL cholesterol 69.2. MENTAL STATUS EXAM: This is a somewhat short man, who is averagely built. He has a very close shaved head with silvery sorensen hair. His grooming is adequate. He is slightly hypokinetic perhaps because he is using a cane, perhaps because he is in some pain. He is calm and cooperative. His speech is of normal rate, tone, and volume. He has circumstantial speech. He appears to be in a neutral mood. He has a full range of affect. His thought processes are normal. His thought content is clear and logical. He is not homicidal or suicidal at this time. He is not experiencing hallucinations of any kind. His insight is poor. His judgement is poor. His cognition is intact. He is alert and awake x3. DIAGNOSIS: [place] I: Alcohol-induced mood disorder. IMPRESSION: This is a 68-year-old man, who comes to the hospital in a nearly identical presentation to those in the past and with suicidal ideation that relatively quickly clears up with sobriety. PLAN: The patient is admitted to the adult behavioral services and placed on 15 minute checks for his own safety. He is encouraged to participate in supportive milieu, individual and group therapies. Estimated length of stay is 3 to 5 days. We will be employing the [facility] protocol to deal with the alcohol withdrawal. Discharge planning will involve family involvement and outpatient providers. CHRISTELLE PARRA, AUDELIA [id number]/CPS #: [id number] PENNY
[2018-06-10] MEDS: LORazepam TAB(*) 1 MG PO SCH (06:45)
[2018-06-10] MEDS: Thiamine TAB* 100 MG TAB PO SCH (10:02)
[2018-06-10] MEDS: Multivitamins/Minerals TAB PO SCH (10:02)
[2018-06-10] MEDS: Folic Acid TAB* 1 MG PO SCH (10:02)
[2018-06-10] MEDS: amLODIPine TAB* 5 MG PO SCH (12:16)
--- NOTE | 2018-06-10 18:12 | PN ---
Subjective - Subjective Date of Service: 06/10/18 Service Type: [id number] Hosp care 15 min low complexity Subjective: "Robert" appears to be happy to be on the unit. He has a new plan today that will keep him from going to inpatient rehab. Today he has the plan that he will go to [place] to a [facility] which he anticipates will be about 20 men living together in sobriety. He anticipates this will sufficient support. He references his year in [place] as the success that he will again achieve. He plans to be transported to [place] and "[id number]-[id number]" he will arrive at the fdc. Another motivation to not going to inpatient rehab is that he will have the opportunity to get surgery done on his sciatic nerve, which is apparently bothering him more than it used to. He is hopeful that the happy coincidence of the fdc being across the street from a hospital will serve him well in this area. Objective - Appearance Appearance: Well Developed/Nourished Dysmorphic Features: No Hygiene: Normal Grooming: Well Kept - Behavior Psychomotor Activities: Normal Exhibits Abnormal Movement: No - Attitude and Relatedness Attitude and Relatedness: Superficially Cooperative Eye Contact: Good - Speech Quality: Unpressured Latencies: Normal Quantity: Copious - Mood Patient's Decription of Mood: "Good" - Affect Observed Affect: Expansive Affect Consistent with: Euthymia - Thought Process Patient's Thought Process: Goal Directed Thought Content: No Passive Wish, No Suicidal Planning, No Homicidal Ideation, No Paranoid Ideation - Sensorium Experiencing Hallucinations: No, Sensorium is Clear Type of Hallucinations: Visual: No, Auditory: No, Command: No - Level of Consciousness Level of Consciousness: Alert Orientation: Yes Intact, Yes Orientated to Time, Yes Orientated to Place, Yes Orientated to Person - Impulse Control Impulse Control: Poor - Insight and Judgement Insight and Judgement: Poor - Group Participation Particating in Group Activities: Yes - Medication Management Medication Management Adherence: Yes - Additional Observations Comments: This is Robert's second admit recently and he does not show insight into how the last discharge failed. As far as his judgment goes, he is adequately able to convince himself that his plans will be fine, but this does not seem likely. He is able to make plans and has means to make them happen. Assessment - Assessment Merits Inpatient Hospitalization: For Immediate Safety, For Discharge Planning, Pending Safe DC Plan Clinical Impression: Robert is in the midst of planning his own discharge, much as he did for the last discharge. Robert appears to be motivated for sobriety at this time. Plan - Plan Treatment Plan: Name: KAYCE ORTEGA Birthdate: 1950 [id number] Medications: Current Medications Acetaminophen (Tylenol Tab*) 650 mg PO Q4H PRN PRN Reason: for pain; or Temp >101 F Al Hydrox/Mg Hydrox/Simethicone (Maalox Plus*) 30 ml PO Q4H PRN PRN Reason: INDIGESTION Amlodipine Besylate (Norvasc Tab*) 10 mg PO DAILY [facility] Last Admin: 06/10/18 12:16 Dose: 10 mg Folic Acid (Folvite Tab*) 1 mg PO DAILY [facility] Last Admin: 06/10/18 10:02 Dose: 1 mg Lorazepam (Ativan Tab(*)) 0 - [address] [facility] PROTOCOL [facility]; Protocol Last Admin: 06/10/18 06:45 Dose: 2 mg Multivitamins/Minerals (Theragran/Minerals Tab*) 1 tab PO DAILY [facility] Last Admin: 06/10/18 10:02 Dose: 1 tab Thiamine HCl (Vitamin B-1 Tab*) 100 mg PO DAILY [facility] Last Admin: 06/10/18 10:02 Dose: 100 mg - Discharge Plan Discharge Plan: Drug/Alcohol Rehab Additional Comments: Although we recommend an inpatient rehab, Robert is fairly determined to have his leg/back operated on and finds that an inpatient rehab will get in the way of his plan. He would like to move to [place] and accomplish sobriety and surgery at the same time. Although this is a plan that is less likely to be successful than a plan that involves immediate inpatient rehabilitation, Robert is here voluntarily and we may not be able to compel him to comply with recommendations.
[2018-06-11] MEDS: amLODIPine TAB* 5 MG PO SCH (09:24)
[2018-06-11] MEDS: Folic Acid TAB* 1 MG PO SCH (09:24)
[2018-06-11] MEDS: Multivitamins/Minerals TAB PO SCH (09:24)
[2018-06-11] MEDS: Thiamine TAB* 100 MG TAB PO SCH (09:24)
[2018-06-11] MEDS: Acetaminophen TAB* 325 MG PO PRN (09:26)
--- NOTE | 2018-06-11 15:30 | PN ---
Subjective - Subjective Date of Service: 06/11/18 Service Type: [id number] Hosp care 15 min low complexity Subjective: Robert does not have much to say today. He states he has already spoken with Tricia Ness LCSW, about his discharge plan. Other than that, he states he is "hanging in there," states he is not suicidal and states he is not hearing voices, and walks away. Objective - Appearance Appearance: Well Developed/Nourished Dysmorphic Features: No Hygiene: Normal Grooming: Fairly Well Kept - Behavior Psychomotor Activities: Normal Exhibits Abnormal Movement: No - Attitude and Relatedness Attitude and Relatedness: Minimally Cooperative Eye Contact: Good - Speech Quality: Unpressured Latencies: Normal Quantity: Terse - Mood Patient's Decription of Mood: "Good" - Affect Observed Affect: Tense Affect Consistent with: Euthymia - Thought Process Patient's Thought Process: Goal Directed Thought Content: No Passive Wish, No Suicidal Planning, No Homicidal Ideation, No Paranoid Ideation - Sensorium Experiencing Hallucinations: No, Sensorium is Clear Type of Hallucinations: Visual: No, Auditory: No, Command: No - Level of Consciousness Level of Consciousness: Alert Orientation: Yes Intact, Yes Orientated to Time, Yes Orientated to Place, Yes Orientated to Person - Impulse Control Impulse Control: Impaired - Insight and Judgement Insight and Judgement: Impaired - Group Participation Particating in Group Activities: No - Medication Management Medication Management Adherence: Yes - Additional Observations Comments: This is Robert's second admit recently and he does not show insight into how the last discharge failed. As far as his judgment goes, he is adequately able to convince himself that his plans will be fine, but this does not seem likely. He is able to make plans and has means to make them happen. He is superficially cooperative, but appears to have his own agenda which he has not shared today with me. Assessment - Assessment Merits Inpatient Hospitalization: For Stabilization, Pending Safe DC Plan Clinical Impression: Robert is in the midst of planning his own discharge, much as he did for the last discharge. He appears to be less motivated for sobriety today. It appears that he has left wide openings for sobriety to be other than his number one priority. Plan - Plan Treatment Plan: Name: KAYCE ORTEGA Birthdate: 1950 [id number] Medications: Current Medications Acetaminophen (Tylenol Tab*) 650 mg PO Q4H PRN PRN Reason: for pain; or Temp >101 F Last Admin: 06/11/18 09:26 Dose: 650 mg Al Hydrox/Mg Hydrox/Simethicone (Maalox Plus*) 30 ml PO Q4H PRN PRN Reason: INDIGESTION Amlodipine Besylate (Norvasc Tab*) 10 mg PO DAILY [facility] Last Admin: 06/11/18 09:24 Dose: 10 mg Folic Acid (Folvite Tab*) 1 mg PO DAILY [facility] Last Admin: 06/11/18 09:24 Dose: 1 mg Multivitamins/Minerals (Theragran/Minerals Tab*) 1 tab PO DAILY [facility] Last Admin: 06/11/18 09:24 Dose: 1 tab Thiamine HCl (Vitamin B-1 Tab*) 100 mg PO DAILY [facility] Last Admin: 06/11/18 09:24 Dose: 100 mg - Discharge Plan Additional Comments: Although we recommend an inpatient rehab, Robert is fairly determined to have his leg/back operated on and finds that an inpatient rehab will get in the way of his plan. He would like to move to [place] and accomplish sobriety and surgery at the same time. Although this is a plan that is less likely to be successful than a plan that involves immediate inpatient rehabilitation, Robert is here voluntarily and we may not be able to compel him to comply with recommendations. Furthermore, Robert believes inpatient rehab will be "a waste of time." He is no longer suicidal and is not experiencing any hallucinations and states he is well. He appears ready for discharge if an agreeable solution can be found.
[2018-06-12] MEDS: amLODIPine TAB* 5 MG PO SCH (11:33)
[2018-06-12] MEDS: Multivitamins/Minerals TAB PO SCH (11:33)
[2018-06-12] MEDS: Folic Acid TAB* 1 MG PO SCH (11:33)
[2018-06-12] MEDS: Thiamine TAB* 100 MG TAB PO SCH (11:35)
[2018-06-12] MEDS: Acetaminophen TAB* 325 MG PO PRN (14:20)
--- NOTE | 2018-06-12 16:31 | PN ---
Subjective - Subjective Date of Service: 06/12/18 Service Type: 75109 Hosp care 15 min low complexity Subjective: Robert is appearing to be more edgy and irritable. His face is pink and he is walking assertively and not making eye contact. His desire to go to outpatient sober living has been derailed by his not being accepted in some places due to his history with them as well as there not being openings. This has not stopped Robert from crafting plans that he believes will offer him what he wants. Objective - Appearance Appearance: Healthy Appearing Dysmorphic Features: No Hygiene: Normal Grooming: Fairly Well Kept - Behavior Psychomotor Activities: Normal Exhibits Abnormal Movement: No - Attitude and Relatedness Attitude and Relatedness: Superficially Cooperative Eye Contact: Fair - Speech Quality: Unpressured Latencies: Normal Quantity: Terse - Mood Patient's Decription of Mood: "Okay" - Affect Observed Affect: Constricted Affect Consistent with: Dysphoria - Thought Process Patient's Thought Process: Coherent Thought Content: No Passive Wish, No Suicidal Planning, No Homicidal Ideation, No Paranoid Ideation - Sensorium Experiencing Hallucinations: No, Sensorium is Clear Type of Hallucinations: Visual: Yes, Auditory: Yes, Command: Yes - Level of Consciousness Level of Consciousness: Alert Orientation: Yes Intact, Yes Orientated to Time, Yes Orientated to Place, Yes Orientated to Person - Impulse Control Impulse Control: Impaired - Insight and Judgement Insight and Judgement: Poor - Medication Management Medication Management Adherence: Yes - Additional Observations Comments: This is Robert's second admit recently and he does not show insight into how the last discharge failed. As far as his judgment goes, he is adequately able to convince himself that his plans will be fine, but this does not seem likely. He is able to make plans and has means to make them happen. He is generally seclusive to himself, although he does converse with select peers. He appears to be getting a little agitated and his face is pink. He is walking around the unit more. Assessment - Assessment Merits Inpatient Hospitalization: For Immediate Safety, For Discharge Planning, Pending Safe DC Plan Clinical Impression: Robert is in the midst of planning his own discharge, much as he did for the last discharge. He appears to be less motivated for sobriety today. A safe discharge plan for Robert would be further rehab, but he is unwilling to take part in that plan. His discharge will depend on a combined effort on our part and his to make adequate plans for the future. Plan - Plan Treatment Plan: Name: KAYCE ORTEGA Birthdate: 1950 [id number] Medications: Current Medications Acetaminophen (Tylenol Tab*) 650 mg PO Q4H PRN PRN Reason: for pain; or Temp >101 F Last Admin: 06/12/18 14:20 Dose: 650 mg Al Hydrox/Mg Hydrox/Simethicone (Maalox Plus*) 30 ml PO Q4H PRN PRN Reason: INDIGESTION Amlodipine Besylate (Norvasc Tab*) 10 mg PO DAILY [facility] Last Admin: 06/12/18 11:33 Dose: 10 mg Folic Acid (Folvite Tab*) 1 mg PO DAILY [facility] Last Admin: 06/12/18 11:33 Dose: 1 mg Multivitamins/Minerals (Theragran/Minerals Tab*) 1 tab PO DAILY [facility] Last Admin: 06/12/18 11:33 Dose: 1 tab Thiamine HCl (Vitamin B-1 Tab*) 100 mg PO DAILY [facility] Last Admin: 06/12/18 11:35 Dose: 100 mg - Discharge Plan Additional Comments: Although we recommend an inpatient rehab, Robert is fairly determined to have his leg/back operated on and finds that an inpatient rehab will get in the way of his plan. He would like to move to [place] and accomplish sobriety and surgery at the same time. Although this is a plan that is less likely to be successful than a plan that involves immediate inpatient rehabilitation, Robert is here voluntarily and we may not be able to compel him to comply with recommendations. Furthermore, Robert believes inpatient rehab will be "a waste of time." He is no longer suicidal and is not experiencing any hallucinations and states he is well. He appears ready for discharge if an agreeable solution can be found.
[2018-06-13] MEDS: Thiamine TAB* 100 MG TAB PO SCH (09:08)
[2018-06-13] MEDS: Multivitamins/Minerals TAB PO SCH (09:08)
[2018-06-13] MEDS: Folic Acid TAB* 1 MG PO SCH (09:08)
[2018-06-13] MEDS: amLODIPine TAB* 5 MG PO SCH (09:08)
[2018-06-13] MEDS: Acetaminophen TAB* 325 MG PO PRN (09:10)
--- NOTE | 2018-06-13 18:00 | PN ---
Subjective - Subjective Date of Service: 06/13/18 Service Type: 53475 Hosp care 15 min low complexity Subjective: Robert is in his usual state of mind and mostly stays in his room. On approach he minimizes any problem and tries to convince the writter with his wish and plan to go to [facility] if and when there is a bed open. Otherwise denies any psychiatric problem including hallucinations, delusions, SI or HI. Objective - Appearance Appearance: Healthy Appearing Dysmorphic Features: No Hygiene: Normal Grooming: Well Kept - Behavior Psychomotor Activities: Normal Exhibits Abnormal Movement: No - Attitude and Relatedness Attitude and Relatedness: Appropriate Eye Contact: Good - Speech Quality: Unpressured Latencies: Normal Quantity: Appropriate - Mood Patient's Decription of Mood: "Great" - Affect Observed Affect: Non-labile Affect Consistent with: Euthymia - Thought Process Patient's Thought Process: Coherent, Goal Directed Thought Content: No Passive Wish, No Suicidal Planning, No Homicidal Ideation, No Paranoid Ideation - Sensorium Experiencing Hallucinations: No, Sensorium is Clear Type of Hallucinations: Visual: No, Auditory: No, Command: No - Level of Consciousness Level of Consciousness: Alert Orientation: Yes Intact, Yes Orientated to Time, Yes Orientated to Place, Yes Orientated to Person - Impulse Control Impulse Control: Intact - Insight and Judgement Insight and Judgement: Poor - Group Participation Particating in Group Activities: No - Medication Management Medication Management Adherence: Yes Assessment - Assessment Merits Inpatient Hospitalization: For Discharge Planning Plan - Plan Treatment Plan: Name: KAYCE ORTEGA Birthdate: 1950 [id number] Continued Medication Management: Continue Outpt Medication Medications: Current Medications Acetaminophen (Tylenol Tab*) 650 mg PO Q4H PRN PRN Reason: for pain; or Temp >101 F Last Admin: 06/13/18 09:10 Dose: 650 mg Al Hydrox/Mg Hydrox/Simethicone (Maalox Plus*) 30 ml PO Q4H PRN PRN Reason: INDIGESTION Amlodipine Besylate (Norvasc Tab*) 10 mg PO DAILY [facility] Last Admin: 06/13/18 09:08 Dose: 10 mg Folic Acid (Folvite Tab*) 1 mg PO DAILY [facility] Last Admin: 06/13/18 09:08 Dose: 1 mg Multivitamins/Minerals (Theragran/Minerals Tab*) 1 tab PO DAILY [facility] Last Admin: 06/13/18 09:08 Dose: 1 tab Thiamine HCl (Vitamin B-1 Tab*) 100 mg PO DAILY [facility] Last Admin: 06/13/18 09:08 Dose: 100 mg - Discharge Plan Discharge Plan: Drug/Alcohol Rehab
[2018-06-14] MEDS: Thiamine TAB* 100 MG TAB PO SCH (09:17)
[2018-06-14] MEDS: Acetaminophen TAB* 325 MG PO PRN (09:17)
[2018-06-14] MEDS: Folic Acid TAB* 1 MG PO SCH (09:17)
[2018-06-14] MEDS: Multivitamins/Minerals TAB PO SCH (09:17)
[2018-06-14] MEDS: amLODIPine TAB* 5 MG PO SCH (10:09)
[2018-06-15] MEDS: Acetaminophen TAB* 325 MG PO PRN ×2 (06:35→15:42)
[2018-06-15] MEDS: Multivitamins/Minerals TAB PO SCH (09:31)
[2018-06-15] MEDS: Thiamine TAB* 100 MG TAB PO SCH (09:31)
[2018-06-15] MEDS: amLODIPine TAB* 5 MG PO SCH (09:31)
[2018-06-15] MEDS: Folic Acid TAB* 1 MG PO SCH (09:31)
--- NOTE | 2018-06-15 16:34 | PN ---
Subjective - Subjective Subjective: Kayce endorses restful sleep, improving mood, denies cravings or withdrawal from alcohol. He denies SI/HI and he contracts for safety. He has been active in his treatment here and adherent to unit's routines. He looks forward to going to rehab in [place] in the coming days. Objective - Appearance Appearance: Healthy Appearing Dysmorphic Features: No Hygiene: Normal Grooming: Well Kept - Behavior Psychomotor Activities: Normal Exhibits Abnormal Movement: No - Attitude and Relatedness Attitude and Relatedness: Cooperative Eye Contact: Fair - Speech Quality: Unpressured Latencies: Normal Quantity: Appropriate - Mood Patient's Decription of Mood: "Okay" - Affect Observed Affect: Constricted Affect Consistent with: Dysphoria - Thought Process Patient's Thought Process: Coherent, Goal Directed Thought Content: No Passive Wish, No Suicidal Planning, No Homicidal Ideation, No Paranoid Ideation - Sensorium Experiencing Hallucinations: No, Sensorium is Clear - Level of Consciousness Level of Consciousness: Alert Orientation: Yes Intact - Impulse Control Impulse Control: Intact - Insight and Judgement Insight and Judgement: Fair - Group Participation Particating in Group Activities: Yes - Medication Management Medication Management Adherence: Yes Assessment - Assessment Merits Inpatient Hospitalization: Consolidate Improvements, For Discharge Planning Inpatient DSM-V Dx: F10.14 Clinical Impression: Progressing well through detoxification, awaiting bed to bed transfer to rehab. Plan - Plan Treatment Plan: Name: KAYCE ORTEGA Birthdate: 1950 [id number] Medications: Current Medications Acetaminophen (Tylenol Tab*) 650 mg PO Q4H PRN PRN Reason: for pain; or Temp >101 F Last Admin: 06/15/18 15:42 Dose: 650 mg Al Hydrox/Mg Hydrox/Simethicone (Maalox Plus*) 30 ml PO Q4H PRN PRN Reason: INDIGESTION Amlodipine Besylate (Norvasc Tab*) 10 mg PO DAILY [facility] Last Admin: 06/15/18 09:31 Dose: 10 mg Folic Acid (Folvite Tab*) 1 mg PO DAILY [facility] Last Admin: 06/15/18 09:31 Dose: 1 mg Multivitamins/Minerals (Theragran/Minerals Tab*) 1 tab PO DAILY [facility] Last Admin: 06/15/18 09:31 Dose: 1 tab Thiamine HCl (Vitamin B-1 Tab*) 100 mg PO DAILY [facility] Last Admin: 06/15/18 09:31 Dose: 100 mg - Discharge Plan Discharge Plan: Drug/Alcohol Rehab Outpatient Program: [facility]
[2018-06-16] MEDS: Acetaminophen TAB* 325 MG PO PRN (06:10)
[2018-06-16] MEDS: Multivitamins/Minerals TAB PO SCH (08:44)
[2018-06-16] MEDS: amLODIPine TAB* 5 MG PO SCH (08:45)
[2018-06-16] MEDS: Thiamine TAB* 100 MG TAB PO SCH (08:45)
[2018-06-16] MEDS: Folic Acid TAB* 1 MG PO SCH (08:45)
[2018-06-16 12:45] VITALS: BP 124/73
--- NOTE | 2018-06-17 12:04 | DS ---
DISCHARGE SUMMARY: DATE OF ADMISSION: 06/08/18 DATE OF DISCHARGE: 06/16/18 PROVIDER: Christelle Parra NP, in Psychiatry. SUPERVISING PSYCHIATRIST: Dr. Edgar Lara. DIAGNOSIS: [place] I: Alcohol-induced mood disorder. CONDITION AT THE TIME OF DISCHARGE: Cooper is improved, he is psychiatrically cleared, he is stable. He participated in few groups and was social with select peers. He was agreeable to discharge, although he did think that he would like to stay longer in order to wait for another location to open where he could stay. He did well here psychiatrically. He did not agree to a new medication like Vivitrol. He will be moving to [place], so he will be attending with [facility]. MENTAL STATUS EXAM: At the time of discharge, Robert is calm, cooperative, and makes good eye contact. He is alert and oriented x3. His grooming is adequate. His speech pace is slightly pressured. His thought processes are logical. He is not psychotic, not delusional. Denies AH, VH, SI, and HI. His insight is fair. His judgment is fair. He states he is willing to follow up. DISCHARGE INSTRUCTIONS TO THE PATIENT: A. Medications: Cooper is takin. Amlodipine 10 mg daily. 2. Folic acid 1 mg daily. 3. Multivitamin 1 mg daily. 4. Thiamine 100 mg daily. B. His diet is regular. C. Activities: As tolerated. Robert is a nonsmoker. There are no studies pending at the time of discharge. D. Followup care: He is moving to [place]. He will be seeing Dr. Bautista for psychiatry. He will be going to the [facility] and he will be seeking substance use treatment at [facility]. E. Substance use followup: He has been referred to [facility] where he has been seen before. Medication was offered, specifically Vivitrol, and he denied it saying he believed it would make his blood pressure go up. He also stated a pill cannot help everything, at the same time, he would really like some lorazepam to go home with. HOSPITAL COURSE: Part A: Chief complaint: "I am not a superman." The patient is a 68-year-old single white male with a history of alcoholism and multiple admissions, who arrives by ambulance on a voluntary status following his plan to overdose on Norvasc and then drink himself to . Instead, he flushed the pills down the toilet stating he did not really want to and he checks himself in to the hospital to get sober and then comes to this unit. Robert recently was on the unit and left the day before "going to rehab" in order to get his things together. He created a plan by himself to go to his AA sponsor' s house and then have that person take him to [place] for rehab, but as Robert says he "took a right turn" and ended up going on a drinking binge for 6 days. Robert acknowledges that he is an alcoholic. He also wants to have his right sciatic nerve repaired because right now he says that it feels like a toothache going down his leg. When questioned further about his reasoning behind wanting to get that fixed, at the same time he is doing alcohol rehab, he stated that he has waited long enough and now it is time to fix it and he would not make someone with the toothache or an abscessed tooth wait that long. At that point, when I pointed out that he had been sober for a year and did not do anything to take care of it, he stated "I am not a superman." Part B: Psychiatric treatment was rendered. The patient was admitted to the adult behavioral health unit and placed on 15-minute checks for safety. Robert did reasonably well on the unit and went to some groups and interacted with some peers well. He was on the [facility] alcohol withdrawal protocol, which was eventually discontinued as he stopped scoring because of blood pressure and pulse-related reasons. He did seem to struggle with that discontinuation and became somewhat agitated wanting to leave the hospital sooner than his discharge plan was ready. Robert had hopes to go to [place] to a sober [facility] where he anticipated there would be about 20 men living together in sobriety and he thought that would be sufficient support; unfortunately, the [facility] did not have any openings and he was not able to go there. His plans continued to change and he wanted to continue to wait here in the hospital until such a spot opened. Robert continued his stay on the inpatient unit and over the weekend felt quite comfortable, denied suicidality, denied homicidality, and was still hoping to go to [place] rather than [place]. Upon the day of discharge which was 06/16/18, he was disappointed that he was going to [place], but still had plans to call [place] frequently to find out when they had an opening despite our encouragement that he could stay and continue work in a familiar outpatient setting. Robert is improved from his admission date but he is much the same at this discharge date as he was at his last and most recent discharge date, which was 06/02/18, so there were 7 days between his discharge and his readmission. He is being discharged to the [facility] with treatment with Dr. Bautista, psychiatrist, and the [facility] for substance use. CHRISTELLE PARRA, AUDELIA [id number]/[facility] #: [id number] PENNY
== END 2018-06-16 13:10 | DRG 897 ==
LOC: ED 17:39 → BSU 06-08 14:35
PROVIDERS: ADMIT Psychiatry & Neurology Psychiatry; ATTEND Psychiatry & Neurology Psychiatry
DX: F10.24 Alcohol dependence with alcohol-induced mood disorder (principal); R45.851 Suicidal ideations; Y90.8 Blood alcohol level of 240 mg/100 ml or more; F10.229 Alcohol dependence with intoxication, unspecified; F10.239 Alcohol dependence with withdrawal, unspecified; M54.30 Sciatica, unspecified side; I10 Essential (primary) hypertension; M51.26 Other intervertebral disc displacement, lumbar region; Z88.8 Allergy status to other drugs, medicaments and biological substances; Z79.899 Other long term (current) drug therapy; Z81.1 Family history of alcohol abuse and dependence; Z81.3 Family history of other psychoactive substance abuse and dependence
CPT/HCPCS: 36415; 80053; 80061; 80307; 80320; 80329; 81003; 83036; 83690; 83735; 84443; 84484; 85025; 93005; 99222; 99231; 99284; A9270-GY; G0480; J2060; J3411

== ENCOUNTER 2018-11-05 17:57 | Inpatient (IN) | payer MEDICARE, MEDICAID ==
--- NOTE | 2018-11-05 20:22 | ED ---
Psychiatric Complaint - HPI Summary HPI Summary: This patient is a 68 year old M presenting to [facility] with detox request. Pt notes he has been having chronic right hip pain and has been drinking beer to deal with the pain. Patient notes he is scheduled to have hip surgery at [facility]. The patient rates the pain 8/10 in severity. Symptoms aggravated by EtOH use. Symptoms alleviated by nothing. Patient reports SI with plan to OD on fentanyl and morphine. Patient notes that he had a seizure today and experienced several episodes of incontinence. Hx alcoholism - History Of Current Complaint Chief Complaint: EDDetoxRequest Time Seen by Provider: 11/05/18 20:06 Hx Obtained From: Patient Onset/Duration: Gradual Onset, Lasting Days, Still Present, Worse Since - today Timing: Constant Severity Initially: Moderate Severity Currently: Moderate Aggravating Factor(s): Alcohol Use Alleviating Factor(s): Nothing Has Suicidal: Reports: Thoughts, With A Plan - OD on fentanyl and morphine Recent Stressor(s): right hip pain Ingestion History: Type/Name Of Drug - EtOH - Allergies/Home Medications Allergies/Adverse Reactions: Allergies Allergy/AdvReac Type Severity Reaction Status Date / Time acamprosate Allergy Intermediate See Comment Verified 11/05/18 18:02 PMH/Surg Hx/FS Hx/Imm Hx Endocrine/Hematology History: Denies: Hx Sickle Cell Disease Cardiovascular History: Reports: Hx Hypertension GI History: Reports: Other GI Disorders - Pt reports periods of incontinence, especially when withdrawing from ETOH History: Denies: Hx Dialysis Musculoskeletal History: Reports: Hx Arthritis - PER PT REPORT TO RIGHT LEG/KNEE , Hx Back Problems Denies: Hx Osteoporosis Sensory History: Reports: Hx Cataracts, Hx Contacts or Glasses, Other Sensory Impairments - both eyes with lens implants Denies: Hx Legally Blind, Hx Deafness, Hx Hearing Aid Opthamlomology History: Reports: Hx Cataracts, Hx Contacts or Glasses, Other Sensory Impairments - both eyes with lens implants Denies: Hx Legally Blind Psychiatric History: Reports: Hx Anxiety, Hx Depression, Hx Inpatient Treatment , Hx Community Mental Health Tx, Hx Suicide Attempt, Hx Substance Abuse Denies: Hx Eating Disorder, Hx of Violent Episodes Against Others - Surgical History Surgery Procedure, Year, and Place: Cataract x 2 Infectious Disease History: No Infectious Disease History: Denies: Traveled Outside the [place] in Last 30 Days - Family History Known Family History: Positive: Other - Anxiety, depression, EtOH abuse Family History: Hx of EtOH in family. - Social History Alcohol Use: Daily Alcohol Amount: started 6-pack/day, moving up to up to 12 pack day over 8 day period Hx Substance Use: No Substance Use Type: Reports: None Substance Use Comment - Amount & Last Used: Pt is a chronic alcoholic Hx Tobacco Use: No Smoking Status (MU): Never Smoked Tobacco Length of Time of Smoking/Using Tobacco: Pt has used no tobacco products in last 30 days Have You Smoked in the Last Year: No Review of Systems Negative: Fever Negative: Epistaxis Positive: incontinence Musculoskeletal: Other - right hip pain Neurological: Other - EtOh use, seizure Psychological: Other - SI with plan All Other Systems Reviewed And Are Negative: Yes Physical Exam - Summary Physical Exam Summary: Appearance: Well-appearing, Well-nourished, lying in bed comfortably Skin: Warm, dry, no obvious rash Eyes: sclera anicteric, no conjunctival pallor ENT: mucous membranes moist, pharynx appears normal Neck: Supple, nontender Respiratory: Clear to auscultation, no signs of respiratory distress Cardiovascular: Normal S1, S2. No murmurs. Normal distal pulses in tibial and radial bilaterally. Abdomen: Soft, nontender, normal active bowel sounds present Musculoskeletal: Normal, Strength/ROM Intact Neurological: A&Ox3, awake and alert, mentation is normal, speech is fluent and appropriate Psychiatric: affect is normal, does not appear anxious or depressed Triage Information Reviewed: Yes Vital Signs On Initial Exam: Initial Vitals Temp Pulse Resp BP Pulse Ox 98.2 F 92 16 145/89 93 11/05/18 18:01 11/05/18 18:01 11/05/18 18:01 11/05/18 18:01 11/05/18 18:01 Vital Signs Reviewed: Yes Diagnostics - Vital Signs Vital Signs Temp Pulse Resp BP Pulse Ox 11/05/18 18:01 98.2 F 92 16 145/89 93 - Laboratory Result Diagrams: 11/05/18 19:33 11/05/18 19:33 Lab Statement: Any lab studies that have been ordered have been reviewed, and results considered in the medical decision making process. Course/Dx - Course Course Of Treatment: This patient is a 68 year old M presenting to [facility] with detox request. Pt notes he has been having chronic right hip pain and has been drinking beer to deal with the pain. The patient rates the pain 8/10 in severity. Symptoms aggravated by EtOH use. Patient reports SI with plan to OD on fentanyl and morphine. Patient notes that he had a seizure today and experienced several episodes of incontinence. Hx alcoholism. Test results with no significant abnormalities except for elevated EtOH levels. We discussed patient care with Dr. Lara, psychiatrist, and they agreed to admit the patient to the psychiatric facility at [facility]. The patient is agreeable with this plan. - Differential Dx/Clinical Impression Provider Diagnosis: Suicidal ideation - Physician Notifications Discussed Care Of Patient With: Edgar Lara Time Discussed With Above Provider: 04:00 Instructed by Provider To: Admit As Inpatient Discharge - Sign-Out/Discharge Documenting (check all that apply): Patient Departure - admit - Discharge Plan Condition: Stable Disposition: PSYCHIATRIC FACILITY-[facility] Referrals: [facility] [Outside] - Billing Disposition and Condition Condition: STABLE Disposition: Psychiatric Facility [facility] - Attestation Statements Document Initiated by Scribe: Yes Documenting Scribe: Faye Loya Provider For Whom Gian is Documenting (Include Credential): Donovan Luna MD Scribe Attestation: Faye Davis, maheshed for Donovan Luna MD on 11/06/18 at 0440. Scribe Documentation Reviewed: Yes Provider Attestation: The documentation as recorded by the Faye harris accurately reflects the service I personally performed and the decisions made by Donovan mendieta MD Status of Scribe Document: Viewed
[2018-11-05 20:43] LABS: ABS Basophils 0.1 10^3/ul (0-0.2); ABS Eosinophils 0 10^3/ul (0-0.6); ABS Lymphocytes 1.9 10^3/ul (1.0-4.8); ABS Monocytes 0.6 10^3/ul (0-0.8); ABS Neutrophils 5.1 10^3/ul (1.5-7.7); ABS Nucleated RBC 0 10^3/ul; Eosinophil % 0.5 %; Hematocrit 44 % (42-52); Hemoglobin 14.7 g/dl (14.0-18.0); Lymphocyte % 24.2 %; Mean Corpuscular HGB Conc 34 g/dl (31-36); Mean Corpuscular Hemoglobin 30 pg (27-31); Mean Corpuscular Volume 89 fL (80-94); Mean Platelet Volume 7.2 fL (7.4-10.4); Nucleated Red Blood Cells % 0; Platelet Count 255 10^3/ul (150-450); Red Blood Count 4.89 10^6/ul (4.00-5.40); Red Cell Distribution Width 15 % (10.5-15); White Blood Count 7.7 10^3/ul (3.5-10.8)
[2018-11-05 21:02] LABS: Alcohol 236 mg/dL (<10); Salicylate < 2.50 mg/dL (<30)
[2018-11-05 21:11] LABS: ALT 30 U/L (7-52); AST 41 U/L (13-39); Albumin 4.6 g/dL (3.2-5.2); Albumin/Globulin Ratio 1.4 (1-3); Alkaline Phosphatase 44 U/L (34-104); Anion Gap 12 mmol/L (2-11); BUN/Creatinine Ratio 8.2 (8-20); Blood Urea Nitrogen 7 mg/dL (6-24); CO2 Carbon Dioxide 26 mmol/L (22-32); Calcium 9.1 mg/dL (8.6-10.3); Chloride 100 mmol/L (101-111); EGFR African American 109.1 (>60); EGFR Non-African American 90.2 (>60); Globulin 3.2 g/dL (2-4); Glucose 102 mg/dL (70-100); Potassium 4.7 mmol/L (3.5-5.0); Sodium 138 mmol/L (135-145); Total Protein 7.8 g/dL (6.4-8.9)
[2018-11-05 21:17] LABS: TSH (Thyroid Stimulating Horm) 3.32 mcIU/mL (0.34-5.60)
[2018-11-06] MEDS ORDERED: Acetaminophen TAB* 325 MG PO PRN (07:40)
[2018-11-06 07:52] LABS: Urine Appearance Clear; Urine Bacteria 1+ (Absent); Urine Bilirubin Negative (Negative); Urine Blood Negative (Negative); Urine Color Yellow; Urine Glucose Negative (Negative); Urine Ketones Trace (Negative); Urine Nitrite Negative (Negative); Urine Protein Negative (Negative); Urine Red Blood Cell 1+(3-5/hpf) (Absent); Urine Urobilinogen Negative (Negative); Urine White Blood Cell 2+(11-20/hpf) (Absent)
[2018-11-06] MEDS ORDERED: LORazepam PO 0-6 for WAM protocol PO SCH (08:00)
[2018-11-06] MEDS ORDERED: LORazepam IM 0-6 mg for WAM protocol IM SCH (08:00)
[2018-11-06] MEDS ORDERED: Thiamine IV* 100 MG IM X 1 ON ADMISSION IM ONE (08:00)
[2018-11-06] MEDS ORDERED: LORazepam PO (enter doses in WAM protocol) PO SCH (08:00)
[2018-11-06] MEDS ORDERED: Al Hydrox/Mg Hydrox/Simet LIQ* 30 ML Q2P GAST DISTRESS PO PRN (08:00)
[2018-11-06] MEDS ORDERED: LORazepam IV 0-3 mg for WAM protocol IV PUSH SCH (08:00)
[2018-11-06] MEDS: Vitamin THERAPEUTIC TAB PO SCH (08:09)
[2018-11-06] MEDS: Folic Acid TAB* 1 MG DAILY PO SCH (08:10)
[2018-11-06 08:18] LABS: Barbiturates Urine Screen None Detected (None Detect); Benzodiazepine Urine Screen None Detected (None Detect); Urine Cannabinoids Screen None Detected (None Detect)
[2018-11-06] MEDS ORDERED: LORazepam TAB(*) 1 MG PO SCH ×2 (12:00→16:00)
[2018-11-06] MEDS: Naproxen TAB* 250 MG PO PRN (12:27)
[2018-11-06] MEDS: amLODIPine TAB* 5 MG PO SCH (12:27)
--- NOTE | 2018-11-06 17:02 | HP ---
HISTORY AND PHYSICAL: DATE OF ADMISSION: 11/06/18 PROVIDER: Christelle Parra NP, in Psychiatry. SUPERVISING PHYSICIAN: Dr. Edgar Lara.* (DICTATED BY CHRISTELLE PARRA NP) JUSTIFICATION FOR ADMISSION: The patient is in need of 24-hour supervision and care secondary to suicidal ideation and inability to care for himself. CHIEF COMPLAINT: "It is my addiction kicking in." HISTORY OF PRESENT ILLNESS: The patient is a 68-year-old single white male with a history of severe alcohol abuse and dependence and suicidal ideation, who arrives, brought by cab and is here on a voluntary status following a 12- day binge of using alcohol and the visit is precipitated by what he says is a seizure which induced incontinence according to him. Cooper was released from [facility] at the end of May of this past year (2017). He states he had been sober for 4 months until 12 days ago when he "got incontinence and fell apart." He states he has been drinking approximately 12 Coors Light a day and was triggered to start drinking again by nothing that he can recall. This seems as though he is obscuring something that happened, it is unclear what that is. He does not name any particular stressors. His house is at the [facility] in [place] and states he can go back there. Apparently, he has been feeling like he wants a vacation, so he came to [place] and stayed at the [facility] with some money that his brother had given him for emergencies at [facility]. At this time, Cooper is resting in bed. He appears well and reasonably content. His energy is poor. He complains of right hip pain that is going to be corrected by surgery in December. When asked if he needed to be sober for this, he did not answer me. His appetite is fine. He is suicidal when he is intoxicated and he is not when he is sober, as he is right now. PAST PSYCHIATRIC HISTORY: Cooper has had approximately 20 admissions to [facility], all under nearly identical circumstances in which Cooper relapses on alcohol and uses in an uncontrolled fashion. He states at those times that he is depressed and he becomes "suicidal." He has perhaps taken too many Librium at one point, a mouthful of Clorox at another when he is attempting to end his own life. Neither of these were whole hearted attempts to end his life and he ended up here in the hospital with no physical consequences of his actions. He denies that he is a violent person. He denies that he has access to weapons. He is not taking any psychiatric meds at this time and does not state that he is depressed or anxious when he is not here. PAST MEDICAL HISTORY: He has arthritis especially in his right hip and he has had alcohol-related seizures in the past. HISTORY OF SUBSTANCE USE: Alcohol is his drug of choice, this is a chronic problem. He began drinking at age 18, it became problematic in his 20s. Heavy drinking beginning at approximately 32 when it was daily and he has had to be detoxed many times over the years. He has gotten at least 1 DWI and has had significant psychosocial deterioration over the years. He has had many, many formal inpatient rehabs and has been in residential sober settings recently. He has been offered treatment with Antabuse and he has had Campral therapy in the past. His longest period of sobriety was in the when he had 13 months. He has had seizures with complicated alcohol withdrawal as well as delirium tremens. He has denied the use of other intoxicants over the years. FAMILY PSYCHIATRIC HISTORY: Substance abuse is prominent in his family. There have been no reported suicides or other mental illnesses in his family. SOCIAL HISTORY: Mr. Duran was originally from [place]. He has a brother and 2 sisters. Both of his parents are . He previously identified as upper middle class, but has been homeless and destitute of late. His brother and sisters in the past were supportive. His brother apparently gave him money for [place] and must be supportive as well. Growing up, he played sports and developed normally and has had significant interpersonal relationships with friends and other relations. He identifies as heterosexual, but has never and has no children. He is receiving social security benefits at this time. REVIEW OF SYSTEMS: Cooper reports feeling fatigued. He denies shortness of breath, heat or cold intolerance, chest pain, abdominal pain. He does identify right hip pain. He denies neurological symptoms. He denies fevers or changes in weight. PHYSICAL EXAMINATION VITAL SIGNS: On 11/06/18 at 9:04 in the morning, his temperature was 99.6, pulse 88, respirations 16, O2 saturation 95%, blood pressure 171/109. It should be noted that Cooper has been without his amlodipine for sometime and this number should come down. For further exam data, please see the emergency department records, which show grossly normal exam. LABORATORY DATA: There are a few abnormalities for Cooper this visit. MPV is low at 7.2, chloride low at 100, anion gap high at 12, glucose high at 102, AST is high at 41. He has trace ketones in his urine; leukocyte esterase, white blood cells, red blood cells and bacteria in his urine. For the toxicology screen, it is clear with the exception of alcohol, which is high at 236. MENTAL STATUS EXAMINATION: Cooper is a short man who is averagely built with white hair, who comes to the hospital with a cooperative attitude at this time, although he was irritable and somewhat hostile requiring security when he was in the emergency room when he was intoxicated. His speech is soft. The tone is normal. He is dysthymic, but has a full range of affect. His thought processes are normal and his thought content is free of delusions. He is neither homicidal nor suicidal. He is not experiencing hallucinations. His insight is poor regarding his alcohol use. His judgment is fair. He is alert and oriented x3. DIAGNOSES: [place] I: Substance-induced depressive disorder; alcohol use disorder, severe. IMPRESSION: Cooper is a 68-year-old man who comes to the hospital during an alcoholic binge when he believes he had a seizure and is incontinent of urine and has been on a drinking binge for 12 days. PLAN: The patient is admitted to the adult behavioral health unit and placed on q. 15-minute checks for his own safety. He is encouraged to participate in milieu, individual and group therapies. Estimated length of stay is 3-7 days. We will start Bactrim for the urinary tract infection. We will continue his outpatient medications, which include gabapentin, amlodipine, and naproxen. Discharge planning will include outpatient providers and a rapid discharge back to [place] if possible. CHRISTELLE PARRA, AUDELIA [id number]/[facility] #: [id number] [facility]
[2018-11-06] MEDS: Gabapentin CAP(*) 300 MG PO SCH (20:14)
[2018-11-06] MEDS: Sulfamethox/Trimethoprim DS 800/160* TAB PO SCH (20:14)
[2018-11-06] MEDS ORDERED: Sulfamethox/Trimethoprim DS 800/160* TAB PO SCH (21:00)
[2018-11-07] MEDS: Gabapentin CAP(*) 300 MG PO SCH ×2 (08:32→20:11)
[2018-11-07] MEDS: Thiamine TAB* 100 MG TAB DAILY (@ T+1) PO SCH (08:32)
[2018-11-07] MEDS: Vitamin THERAPEUTIC TAB PO SCH (08:32)
[2018-11-07] MEDS: amLODIPine TAB* 5 MG PO SCH (08:33)
[2018-11-07] MEDS: Sulfamethox/Trimethoprim DS 800/160* TAB PO SCH ×2 (08:33→20:11)
[2018-11-07] MEDS: Folic Acid TAB* 1 MG DAILY PO SCH (08:33)
[2018-11-08] MEDS: Thiamine TAB* 100 MG TAB DAILY (@ T+1) PO SCH (08:28)
[2018-11-08] MEDS: Gabapentin CAP(*) 300 MG PO SCH ×2 (08:28→20:03)
[2018-11-08] MEDS: Vitamin THERAPEUTIC TAB PO SCH (08:28)
[2018-11-08] MEDS: Folic Acid TAB* 1 MG DAILY PO SCH (08:28)
[2018-11-08] MEDS: amLODIPine TAB* 5 MG PO SCH (08:29)
[2018-11-08] MEDS: Sulfamethox/Trimethoprim DS 800/160* TAB PO SCH ×2 (08:30→20:03)
--- NOTE | 2018-11-08 16:20 | PN ---
Subjective - Subjective Date of Service: 11/08/18 Subjective: Kayce is no longer scoring on the WAM. He complains of feeling weak but denies acute withdrawal symptoms. Sxs of urinary incontinence and urgency have resolved. Mood and sleep are ok. He denies SI/HI. He talks about his plans to stay [facility] the [facility] in [place] after discharge and to attend outpatient treatment at [facility]. Per staff, he remains adherent to unit's routines. Objective - Appearance Appearance: Healthy Appearing Dysmorphic Features: No Hygiene: Normal Grooming: Well Kept - Behavior Psychomotor Activities: Normal Exhibits Abnormal Movement: No - Attitude and Relatedness Attitude and Relatedness: Cooperative Eye Contact: Fair - Speech Quality: Unpressured Latencies: Normal Quantity: Appropriate - Mood Patient's Decription of Mood: "Okay" - Affect Observed Affect: Fair Affect Consistent with: Euthymia - Thought Process Patient's Thought Process: Coherent, Goal Directed Thought Content: No Passive Wish, No Suicidal Planning, No Homicidal Ideation, No Paranoid Ideation - Sensorium Experiencing Hallucinations: No, Sensorium is Clear - Level of Consciousness Level of Consciousness: Alert Orientation: Yes Intact - Impulse Control Impulse Control: Intact - Insight and Judgement Insight and Judgement: Fair - Group Participation Particating in Group Activities: Yes - Medication Management Medication Management Adherence: Yes Assessment - Assessment Merits Inpatient Hospitalization: Consolidate Improvements, For Discharge Planning Clinical Impression: Has progressed well through detox, safe on checks, endorses reduced distress, denying suicidality, future-oriented. Plan - Plan Treatment Plan: Name: KAYCE ORTEGA Birthdate: 1950 [id number] Medications: Current Medications Acetaminophen (Tylenol Tab*) 650 mg PO Q4H PRN PRN Reason: PAIN or TEMP > 101 F Last Admin: 11/06/18 08:09 Dose: 650 mg Al Hydrox/Mg Hydrox/Simethicone (Maalox Plus*) 30 ml PO Q2H PRN PRN Reason: PRN GASTRIC DISTRESS Amlodipine Besylate (Norvasc Tab*) 10 mg PO DAILY [facility] Last Admin: 11/08/18 08:29 Dose: 10 mg Folic Acid (Folvite Tab*) 1 mg PO DAILY [facility] Last Admin: 11/08/18 08:28 Dose: 1 mg Gabapentin (Neurontin Cap(*)) 300 mg PO BID [facility] Last Admin: 11/08/18 08:28 Dose: 300 mg Lorazepam (Ativan Tab(*)) 0 - 6 mg PO .PER [facility] PROTOCOL [facility]; Protocol Multivitamins (Theragran Tab*) 1 tab PO DAILY [facility] Last Admin: 11/08/18 08:28 Dose: 1 tab Naproxen (Naprosyn Tab*) 500 mg PO Q12H PRN PRN Reason: PAIN Last Admin: 11/06/18 12:27 Dose: 500 mg Thiamine HCl (Vitamin B-1 Tab*) 100 mg PO DAILY [facility] Last Admin: 11/08/18 08:28 Dose: 100 mg Trimethoprim/Sulfamethoxazole (Bactrim Ds 800/160 Tab*) 1 tab PO BID [facility] Stop: 11/12/18 12:00 Last Admin: 11/08/18 08:30 Dose: 1 tab - Discharge Plan Discharge Plan: Drug/Alcohol Rehab Outpatient Program: [facility]
[2018-11-09] MEDS: amLODIPine TAB* 5 MG PO SCH (09:25)
[2018-11-09] MEDS: Thiamine TAB* 100 MG TAB DAILY (@ T+1) PO SCH (09:25)
[2018-11-09] MEDS: Sulfamethox/Trimethoprim DS 800/160* TAB PO SCH ×2 (09:25→20:18)
[2018-11-09] MEDS: Vitamin THERAPEUTIC TAB PO SCH (09:25)
[2018-11-09] MEDS: Folic Acid TAB* 1 MG DAILY PO SCH (09:25)
[2018-11-09] MEDS: Gabapentin CAP(*) 300 MG PO SCH ×2 (09:26→20:18)
[2018-11-09] MEDS: Naproxen TAB* 250 MG PO PRN (09:27)
--- NOTE | 2018-11-09 15:32 | PN ---
Subjective - Subjective Date of Service: 11/09/18 Service Type: 02735 Hosp care 25 min moderate complexity Subjective: Although it was planned for Kayce to leave today, he balked at that, stating he didn't get feel stable and that he was "still sore in my knees and chest because I didn't take my meds for 12 days and I drank." Kayce has complicated this by becoming homeless in [place] and then coming to [place] too stay at a hotel and drink until he ran out of money. As is typical of Kayce, he now demands that we send him "door to door" to a homeless [facility] in [place]. Objective - Appearance Appearance: Well Developed/Nourished Dysmorphic Features: No Hygiene: Normal Grooming: Well Kept - Behavior Psychomotor Activities: Normal Exhibits Abnormal Movement: No - Attitude and Relatedness Attitude and Relatedness: Needy Eye Contact: Fair - Speech Quality: Unpressured Latencies: Normal Quantity: Appropriate - Mood Patient's Decription of Mood: "Terrible" - Affect Observed Affect: Constricted Affect Consistent with: Dysphoria - Thought Process Patient's Thought Process: Coherent, Goal Directed Thought Content: No Passive Wish, No Suicidal Planning, No Homicidal Ideation, No Paranoid Ideation - Sensorium Experiencing Hallucinations: No, Sensorium is Clear Type of Hallucinations: Visual: No, Auditory: No, Command: No - Level of Consciousness Level of Consciousness: Alert Orientation: Yes Intact, Yes Orientated to Time, Yes Orientated to Place, Yes Orientated to Person - Impulse Control Impulse Control: Intact - Insight and Judgement Insight and Judgement: Fair - Group Participation Particating in Group Activities: No - Medication Management Medication Management Adherence: Yes Assessment - Assessment Merits Inpatient Hospitalization: For Immediate Safety, For Discharge Planning, Pending Safe DC Plan Clinical Impression: Has progressed well through detox, safe on checks, endorses reduced distress, denying suicidality, future-oriented. 68-y.o. white male from [place] who comes to [place] to stay at the [facility] to get away from [place]. While here in [place], he has been drinking for 12 days and run out of money and now states he is suicidal and needs to be returned to [place]. Plan - Plan Treatment Plan: Name: KAYCE ORTEGA Birthdate: 1950 [id number] Medications: Current Medications Acetaminophen (Tylenol Tab*) 650 mg PO Q4H PRN PRN Reason: PAIN or TEMP > 101 F Last Admin: 11/06/18 08:09 Dose: 650 mg Al Hydrox/Mg Hydrox/Simethicone (Maalox Plus*) 30 ml PO Q2H PRN PRN Reason: PRN GASTRIC DISTRESS Amlodipine Besylate (Norvasc Tab*) 10 mg PO DAILY [facility] Last Admin: 11/09/18 09:25 Dose: 10 mg Folic Acid (Folvite Tab*) 1 mg PO DAILY [facility] Last Admin: 11/09/18 09:25 Dose: 1 mg Gabapentin (Neurontin Cap(*)) 300 mg PO BID [facility] Last Admin: 11/09/18 09:26 Dose: 300 mg Lorazepam (Ativan Tab(*)) 0 - 6 mg PO .PER [facility] PROTOCOL [facility]; Protocol Multivitamins (Theragran Tab*) 1 tab PO DAILY [facility] Last Admin: 11/09/18 09:25 Dose: 1 tab Naproxen (Naprosyn Tab*) 500 mg PO Q12H PRN PRN Reason: PAIN Last Admin: 11/09/18 09:27 Dose: 500 mg Thiamine HCl (Vitamin B-1 Tab*) 100 mg PO DAILY [facility] Last Admin: 11/09/18 09:25 Dose: 100 mg Trimethoprim/Sulfamethoxazole (Bactrim Ds 800/160 Tab*) 1 tab PO BID [facility] Stop: 11/12/18 12:00 Last Admin: 11/09/18 09:25 Dose: 1 tab - Discharge Plan Discharge Plan: Outpatient Follow Up Additional Comments: Kayce was scheduled to be discharged today, but the person who needed to be spoken with at the homeless [facility] in [place] wasn't in today. He is now scheduled to leave tomorrow to go to the mcc in [place].
[2018-11-10] MEDS: Vitamin THERAPEUTIC TAB PO SCH (09:15)
[2018-11-10] MEDS: Thiamine TAB* 100 MG TAB DAILY (@ T+1) PO SCH (09:15)
[2018-11-10] MEDS: Sulfamethox/Trimethoprim DS 800/160* TAB PO SCH (09:15)
[2018-11-10] MEDS: Folic Acid TAB* 1 MG DAILY PO SCH (09:15)
[2018-11-10] MEDS: amLODIPine TAB* 5 MG PO SCH (09:15)
[2018-11-10] MEDS: Gabapentin CAP(*) 300 MG PO SCH (09:15)
[2018-11-10] MEDS: Naproxen TAB* 250 MG PO PRN (09:15)
[2018-11-10 10:55] VITALS: BP 123/70
--- NOTE | 2018-11-10 11:32 | PN ---
[facility]: Group Therapy Note - Service Type Service Type: [id number] Group Psychotherapy - Cognitive Behavioral Group Therapy ( CBT):Patient was attentive and participatory in CBT programming this morning, and remained in good behavioral control. Patient expressed positive insights regarding relevant treatment interventions and goals.
--- NOTE | 2018-11-11 22:10 | DS ---
CC: [facility] * DISCHARGE SUMMARY: DATE OF ADMISSION: 11/06/18 DATE OF DISCHARGE: 11/10/18 PROVIDER: Christelle Parra NP SUPERVISING PHYSICIAN: Dr. Edgar Lara.* (DICTATED BY CHRISTELLE PARRA NP ) DIAGNOSIS: [place] I: Alcohol-induced mood disorder. CONDITION AT THE TIME OF DISCHARGE: Improved, psychiatrically cleared, stable, did not participate in many groups, was social with peers. He is agreeable to discharge. He did well here psychiatrically. His mood improved significantly. No new medications were started and he is scheduled to return to [place] to participate at [facility]. MENTAL STATUS EXAMINATION AT THE TIME OF DISCHARGE: Cooper is calm, cooperative, and makes good eye contact. He is alert and oriented x3. His grooming is good. His speech pace is normal. His thought processes are logical. He is not psychotic or delusional. He denies AH, VH, SI, and HI. His insight is fair. His judgment is good. He is willing to follow up, he states. DISCHARGE INSTRUCTIONS TO THE PATIENT: A. Medications: 1. Amlodipine 10 mg daily. 2. Gabapentin 300 mg b.i.d. 3. Naproxen 500 mg b.i.d. 4. Bactrim DS 1 tablet b.i.d., dispense 4, related to urinary tract infection. B. Diet: Regular. C. Activities: As tolerated. Cooper is a nonsmoker. There are no studies pending at the time of discharge which may be related to his complaints of urinary incontinence. D. Followup care: Cooper is recommended to return to the [facility] in [place] and to utilize case management there. He is also referred to [facility]. He has an appointment on , 11/12/18, at 9 a.m. for outpatient substance use counseling for additional support in his recovery. He is also referred to a PCP at [facility] to get a primary care provider should he require that in this [facility]. E. Substance abuse followup: He is referred to [facility] for substance abuse treatment. HOSPITAL COURSE: PART A: Chief complaint: "It is my addiction kicking in." The patient is a 68-year-old single white male with a history of severe alcohol abuse and dependence and suicidal ideation, who arrives, brought by a cab and is here on a voluntary status following a 12-day binge of using alcohol and the visit is precipitated by what he says is a seizure, which induced incontinence according to him. Cooper was released from [facility] at the end of May of this past year, 2018. He states he had been sober for 4 months until 12 days ago when he "got incontinence and fell apart." He states he has been drinking approximately 12 Coors Light a day and was triggered to start drinking again by nothing that he can recall. This seems as though he is obscuring something that happened, it is unclear what that might be. He does not name any particular stressors. His housing is at the [facility] in [place] and states that he can go back there. Apparently, he has been feeling like he wants a vacation, so he came to [place] and stayed at the [facility] with some money that his brother had given him for emergencies at [facility]. At this time, Cooper is resting in bed. He appears well and reasonably content. His energy is poor. He complains of right hip pain that is going to be corrected by surgery in December. When asked if he needed to be sober for this, he did not answer me. His appetite is fine. He is suicidal when he is intoxicated and he is not when he is sober as he is right now. PART B: Psychiatric treatment was rendered. Cooper was admitted to the adult behavioral unit and placed on q.15-minute checks for safety. Cooper did well on the unit. He went to . He interacted with his peers well. There were no medication changes. He declined to have any medication related to substance use that might help him temper his desire to drink. He was quite comfortable in the hospital, feeling as though he needed to be there since he was aching and his blood pressure was elevated since he had not been taking his medications for the 12 days while he was drinking. This was explained to not be a suitable reason to stay on a psychiatric unit and he was encouraged to prepare to leave much more rapidly than he had in the past. There were no consults entered. He is not suicidal at the end of his stay at [facility]. CHRISTELLE PARRA, SEC ACCOUNTANT [id number]/[facility] #: [id number] [facility]
== END 2018-11-10 13:00 | disposition home or self-care (01) | DRG 775 ==
LOC: ED 17:57 → BSU 11-06 10:00
PROVIDERS: ADMIT Psychiatry & Neurology Psychiatry; ATTEND Psychiatry & Neurology Psychiatry
DX: F10.24 Alcohol dependence with alcohol-induced mood disorder (principal); R45.851 Suicidal ideations; F10.229 Alcohol dependence with intoxication, unspecified; Y90.7 Blood alcohol level of 200-239 mg/100 ml; M16.11 Unilateral primary osteoarthritis, right hip; Z81.1 Family history of alcohol abuse and dependence
CPT/HCPCS: 36415; 80053; 80307; 80320; 80329; 81003; 81015; 84443; 85025; 87077; 87086; 87186; 90853; 99222; 99231; 99232; 99238; 99284; A9270-GY; G0480; J3411

== ENCOUNTER 2023-12-30 16:19 | Inpatient (IN) ==
[2023-12-30 17:26] LABS: ABS Eosinophils 0.1 10^3/uL (0.0-0.5); ABS Lymphocytes 0.9 10^3/uL (1.0-4.8); ABS Monocytes 0.4 10^3/uL (0.0-1.1); ABS Neutrophils 3.2 10^3/uL (1.5-7.6); Hematocrit 37.1 % (38-53); Hemoglobin 12.7 g/dL (13.2-16.3); Lymphocyte % 19.3 %; Mean Corpuscular Hemoglobin 31.6 pg (27-33); Mean Corpuscular Hgb Conc 34.2 g/dL (31-36); Mean Corpuscular Volume 92.4 fL (80-97); Mean Platelet Volume 6.9 fL (7.5-11.2); Platelet Count 227 10^3/uL (150-450); Red Blood Count 4.02 10^6/uL (4.06-5.63); Red Cell Distribution Width 14.5 % (12-17); White Blood Count 4.6 10^3/uL (3.6-10.2)
[2023-12-30 18:04] LABS: ALT 20 U/L (7-52); AST 35 U/L (13-39); Acetaminophen < 15 mcg/mL; Albumin 4.6 g/dL (3.2-5.2); Albumin/Globulin Ratio 1.3 (1-3); Alcohol, S 329 mg/dL (<13); Alkaline Phosphatase 47 U/L (35-149); Anion Gap 8 mmol/L (2-16); Blood Urea Nitrogen 32 mg/dL (6-24); CO2 Carbon Dioxide 28 mmol/L (22-32); Calcium 9.4 mg/dL (8.6-10.3); Chloride 103 mmol/L (101-111); Creatinine, Serum 2.17 mg/dL (0.67-1.17); Globulin 3.6 g/dL (2-4); Glucose 81 mg/dL (70-100); Salicylate < 2.50 mg/dL (<30); Sodium 139 mmol/L (135-145); Total Bilirubin 0.3 mg/dL (0.2-1.0); Total Protein 8.2 g/dL (6.4-8.9); eGFR CKD-EPI 31.8 (>60)
[2023-12-30 18:16] LABS: TSH Ultra Thyroid Stim Horm 4.81 mcIU/mL (0.34-5.60)
[2023-12-30] MEDS: Lactated Ringers 1000 ml BAG 1,000 ML IV ONE (19:26)
[2023-12-30] MEDS: Thiamine 100 MG/ML 2 ml VIAL (200 mg) IV ONE (19:26)
[2023-12-30] MEDS: Folic Acid IV 1 MG in NS 0.9% 50 ML 50 ML IV ONE (20:57)
[2023-12-30 23:47] LABS: Urine Benzodiazepine Screen None Detected (None Detect); Urine Cannabinoids Screen None Detected (None Detect); Urine Opiates Screen None Detected (None Detect)
[2023-12-30 23:48] LABS: Urine Appearance Clear; Urine Bilirubin Negative (Negative); Urine Blood Negative (Negative); Urine Color Colorless; Urine Glucose Negative (Negative); Urine Ketones Negative (Negative); Urine Nitrite Negative (Negative); Urine Protein Negative (Negative); Urine Specific Gravity 1.006 (1.002-1.030); Urine Urobilinogen Negative (Negative)
[2023-12-31] MEDS ORDERED: Ondansetron 4 mg VIAL 2 MG/ML 2 ml VIAL IV PRN (03:02)
[2023-12-31] MEDS: Lactated Ringers 1000 ml BAG 1,000 ML IV SCH ×2 (03:28→09:19)
[2023-12-31] MEDS: hydrALAZINE 20 mg/ml 1 ML Vial IV IV SLOW PU ONE (04:51)
[2023-12-31 05:38] LABS: ABS Eosinophils 0.1 10^3/uL (0.0-0.5); ABS Lymphocytes 0.5 10^3/uL (1.0-4.8); ABS Monocytes 0.4 10^3/uL (0.0-1.1); ABS Neutrophils 2.4 10^3/uL (1.5-7.6); Eosinophil % 3.3 %; Hematocrit 31.4 % (38-53); Hemoglobin 10.8 g/dL (13.2-16.3); Lymphocyte % 14.9 %; Mean Corpuscular Hemoglobin 31.6 pg (27-33); Mean Corpuscular Hgb Conc 34.5 g/dL (31-36); Mean Corpuscular Volume 91.8 fL (80-97); Mean Platelet Volume 7.3 fL (7.5-11.2); Nucleated Red Blood Cells % 0.1 %/100WBC (0.0-0.8); Platelet Count 161 10^3/uL (150-450); Red Blood Count 3.42 10^6/uL (4.06-5.63); Red Cell Distribution Width 14.7 % (12-17); White Blood Count 3.5 10^3/uL (3.6-10.2)
[2023-12-31] MEDS: Labetalol IV 5 MG/ML 20 ml VIAL IV PUSH ONE (06:17)
[2023-12-31 06:43] LABS: Albumin 3.8 g/dL (3.2-5.2); Albumin/Globulin Ratio 1.3 (1-3); Calcium 8.8 mg/dL (8.6-10.3); Creatinine, Serum 2.5 mg/dL (0.67-1.17); Globulin 2.9 g/dL (2-4); Magnesium 1.8 mg/dL (1.9-2.7); Potassium 4.2 mmol/L (3.5-5.0); Total Bilirubin 0.4 mg/dL (0.2-1.0); Total Protein 6.7 g/dL (6.4-8.9); eGFR CKD-EPI 26.8 (>60)
[2023-12-31] MEDS: Magnesium Sulfate 2 gm BAG 2 GM/50 ML BAG IVPB ONE (08:03)
[2023-12-31] MEDS: Multivitamins/Minerals TAB PO SCH (08:03)
[2023-12-31] MEDS: Labetalol IV 5 MG/ML 20 ml VIAL IV PUSH PRN (09:19)
[2023-12-31] MEDS: Haloperidol 5 mg/ml SDV IV/IM 5 MG/ML AMP IV SLOW PU ONE (13:27)
[2024-01-01] MEDS: hydrALAZINE 20 mg/ml 1 ML Vial IV IV SLOW PU ONE ×2 (02:25→04:43)
[2024-01-01] MEDS: hydrALAZINE 20 mg/ml 1 ML Vial IV ONE (05:01)
[2024-01-01 08:07] LABS: Calcium 9.2 mg/dL (8.6-10.3); Creatinine, Serum 2.49 mg/dL (0.67-1.17); Magnesium 2.3 mg/dL (1.9-2.7); Potassium 4.5 mmol/L (3.5-5.0); eGFR CKD-EPI 26.9 (>60)
[2024-01-02 05:50] LABS: ABS Eosinophils 0.1 10^3/uL (0.0-0.5); ABS Lymphocytes 0.6 10^3/uL (1.0-4.8); ABS Monocytes 0.5 10^3/uL (0.0-1.1); ABS Neutrophils 2.6 10^3/uL (1.5-7.6); Eosinophil % 3.5 %; Hematocrit 36.9 % (38-53); Hemoglobin 12.6 g/dL (13.2-16.3); Lymphocyte % 14.7 %; Mean Corpuscular Hemoglobin 31.6 pg (27-33); Mean Corpuscular Hgb Conc 34.2 g/dL (31-36); Mean Corpuscular Volume 92.3 fL (80-97); Mean Platelet Volume 6.8 fL (7.5-11.2); Nucleated Red Blood Cells % 0.1 %/100WBC (0.0-0.8); Platelet Count 171 10^3/uL (150-450); Red Cell Distribution Width 14.8 % (12-17); White Blood Count 3.7 10^3/uL (3.6-10.2)
[2024-01-02 06:05] LABS: Anion Gap 16 mmol/L (2-16); Blood Urea Nitrogen 35 mg/dL (6-24); CO2 Carbon Dioxide 25 mmol/L (22-32); Calcium 9.6 mg/dL (8.6-10.3); Chloride 107 mmol/L (101-111); Creatinine, Serum 2.76 mg/dL (0.67-1.17); Glucose 109 mg/dL (70-100); Magnesium 2.3 mg/dL (1.9-2.7); Potassium 4.1 mmol/L (3.5-5.0); Sodium 148 mmol/L (135-145); eGFR CKD-EPI 23.8 (>60)
[2024-01-02] MEDS: Lactated Ringers 1000 ml BAG 1,000 ML IV SCH (13:05)
[2024-01-02 15:09] LABS: Folate > 20.00 ng/mL (5.90-24.80)
[2024-01-02 15:10] LABS: Vitamin B12 209 pg/mL (180-914)
[2024-01-02] MEDS: Cyanocobalamin INJ 1,000 MCG/ML VIAL 1 ML VIAL IM ONE (16:53)
[2024-01-03] MEDS: hydrALAZINE 20 mg/ml 1 ML Vial IV IV SLOW PU ONE (00:27)
[2024-01-03] MEDS: Labetalol IV 5 MG/ML 20 ml VIAL IV PUSH ONE (02:12)
[2024-01-03 07:18] LABS: Calcium 9.8 mg/dL (8.6-10.3); Creatinine, Serum 2.88 mg/dL (0.67-1.17); Potassium 4.1 mmol/L (3.5-5.0); eGFR CKD-EPI 22.6 (>60)
[2024-01-03] MEDS: Cyanocobalamin INJ 1,000 MCG/ML VIAL 1 ML VIAL IM ONE (10:19)
[2024-01-03] MEDS: D5W 1000 ml BAG 1,000 ML IV SCH (13:31)
[2024-01-03] MEDS: Thiamine 100 MG/ML 2 ml VIAL 500 MG in NS 0.9% 250 ml 250 ML IV SCH (14:21)
[2024-01-04 07:48] LABS: ABS Eosinophils 0.1 10^3/uL (0.0-0.5); ABS Lymphocytes 1.1 10^3/uL (1.0-4.8); ABS Monocytes 0.9 10^3/uL (0.0-1.1); ABS Neutrophils 3.8 10^3/uL (1.5-7.6); Eosinophil % 1.8 %; Hematocrit 38.3 % (38-53); Lymphocyte % 18.7 %; Mean Corpuscular Hemoglobin 31.2 pg (27-33); Mean Corpuscular Hgb Conc 33.9 g/dL (31-36); Mean Platelet Volume 6.7 fL (7.5-11.2); Platelet Count 167 10^3/uL (150-450); Red Blood Count 4.16 10^6/uL (4.06-5.63); Red Cell Distribution Width 14.7 % (12-17); White Blood Count 5.9 10^3/uL (3.6-10.2)
[2024-01-04 08:09] LABS: Calcium 8.9 mg/dL (8.6-10.3); Creatinine, Serum 3.05 mg/dL (0.67-1.17); Magnesium 1.7 mg/dL (1.9-2.7); Potassium 3.3 mmol/L (3.5-5.0); eGFR CKD-EPI 21.1 (>60)
[2024-01-04] MEDS: D5W 1/2 NS 1000 ml BAG 1,000 ML IV SCH (10:14)
[2024-01-04] MEDS: Magnesium Sulfate 2 gm BAG 2 GM/50 ML BAG IVPB ONE (10:44)
[2024-01-04] MEDS: KCL 20 MEQ/100 ML IVPREMIX 20 MEQ/100 ML BAG IV ONE (12:31)
[2024-01-04] MEDS: Enoxaparin 30 MG/0.3 ML SYR SUBCUT SCH (13:51)
[2024-01-05 05:43] LABS: ABS Eosinophils 0.4 10^3/uL (0.0-0.5); ABS Monocytes 0.7 10^3/uL (0.0-1.1); ABS Neutrophils 3.1 10^3/uL (1.5-7.6); Eosinophil % 7.6 %; Hemoglobin 12.3 g/dL (13.2-16.3); Lymphocyte % 19.3 %; Mean Corpuscular Hemoglobin 31.1 pg (27-33); Mean Corpuscular Volume 91.3 fL (80-97); Mean Platelet Volume 7.5 fL (7.5-11.2); Nucleated Red Blood Cells % 0.1 %/100WBC (0.0-0.8); Platelet Count 162 10^3/uL (150-450); Red Blood Count 3.95 10^6/uL (4.06-5.63); Red Cell Distribution Width 14.8 % (12-17); White Blood Count 5.3 10^3/uL (3.6-10.2)
[2024-01-05 05:59] LABS: Creatinine, Serum 3.13 mg/dL (0.67-1.17); Magnesium 1.9 mg/dL (1.9-2.7); Potassium 3.4 mmol/L (3.5-5.0); eGFR CKD-EPI 20.5 (>60)
[2024-01-05] MEDS: Potassium Chlor 20 meq TAB.ER PO ONE (10:40)
[2024-01-05] MEDS: Lactated Ringers 1000 ml BAG 1,000 ML IV SCH (10:43)
[2024-01-06 06:43] LABS: Calcium 8.2 mg/dL (8.6-10.3); Creatinine, Serum 3.09 mg/dL (0.67-1.17); eGFR CKD-EPI 20.8 (>60)
[2024-01-07 06:30] LABS: ABS Eosinophils 0.3 10^3/uL (0.0-0.5); ABS Lymphocytes 1.2 10^3/uL (1.0-4.8); ABS Monocytes 0.8 10^3/uL (0.0-1.1); ABS Neutrophils 2.1 10^3/uL (1.5-7.6); ABS Nucleated RBC 0.01 10^3/ul; Eosinophil % 7.5 %; Hematocrit 36.7 % (38-53); Hemoglobin 12.6 g/dL (13.2-16.3); Mean Corpuscular Hemoglobin 31.6 pg (27-33); Mean Corpuscular Hgb Conc 34.4 g/dL (31-36); Mean Corpuscular Volume 91.9 fL (80-97); Mean Platelet Volume 7.8 fL (7.5-11.2); Nucleated Red Blood Cells % 0.2 %/100WBC (0.0-0.8); Platelet Count 154 10^3/uL (150-450); Red Blood Count 3.99 10^6/uL (4.06-5.63); Red Cell Distribution Width 14.3 % (12-17); White Blood Count 4.5 10^3/uL (3.6-10.2)
[2024-01-07 07:26] LABS: Anion Gap 12 mmol/L (2-16); Blood Urea Nitrogen 37 mg/dL (6-24); CO2 Carbon Dioxide 20 mmol/L (22-32); Calcium 8.2 mg/dL (8.6-10.3); Chloride 111 mmol/L (101-111); Creatinine, Serum 3.21 mg/dL (0.67-1.17); Glucose 87 mg/dL (70-100); Sodium 143 mmol/L (135-145); eGFR CKD-EPI 19.9 (>60)
[2024-01-07 08:39] LABS: Potassium, Whole Blood 3.6 mmol/L (3.4-4.5)
[2024-01-07] MEDS ORDERED: Lorazepam PYXIS KEY PRN (08:44)
[2024-01-07] MEDS: LORazepam 2 mg VIAL 1 ml IV PUSH ONE (09:07)
[2024-01-07] MEDS: diazePAM INJ CARPUJECT 5 MG/ML SYRINGE IV ONE (09:22)
[2024-01-08 00:18] LABS: Urine Appearance Turbid; Urine Bilirubin Negative (Negative); Urine Blood 3+ (Negative); Urine Glucose Negative (Negative); Urine Ketones Negative (Negative); Urine Nitrite Negative (Negative); Urine Protein 1+ (>=30 mg/dL) (Negative); Urine Specific Gravity 1.011 (1.002-1.030); Urine Urobilinogen Negative (Negative); Urine pH 6.5 (5.0-8.0)
[2024-01-08 00:23] LABS: Urine Bacteria Absent /HPF (Absent); Urine Red Blood Cell 3+(>10/hpf) /HPF (0-Trace); Urine Squamous Epithelial Cell Present /HPF (Absent); Urine White Blood Cell Trace(0-5/hpf) /HPF (0-Trace)
[2024-01-08 00:40] LABS: Urine Color Light-Red
[2024-01-08 06:06] LABS: ABS Basophils 0.1 10^3/uL (0.0-0.1); ABS Eosinophils 0.3 10^3/uL (0.0-0.5); ABS Lymphocytes 1.3 10^3/uL (1.0-4.8); ABS Monocytes 0.8 10^3/uL (0.0-1.1); ABS Neutrophils 2.4 10^3/uL (1.5-7.6); ABS Nucleated RBC 0.01 10^3/ul; Eosinophil % 5.6 %; Hematocrit 38.1 % (38-53); Lymphocyte % 27.6 %; Mean Corpuscular Hemoglobin 31.4 pg (27-33); Mean Corpuscular Hgb Conc 34.1 g/dL (31-36); Mean Corpuscular Volume 92.2 fL (80-97); Nucleated Red Blood Cells % 0.2 %/100WBC (0.0-0.8); Platelet Count 191 10^3/uL (150-450); Red Blood Count 4.14 10^6/uL (4.06-5.63); Red Cell Distribution Width 14.4 % (12-17); White Blood Count 4.8 10^3/uL (3.6-10.2)
[2024-01-08 06:48] LABS: Calcium 8.6 mg/dL (8.6-10.3); Creatinine, Serum 3.51 mg/dL (0.67-1.17); Potassium 4.2 mmol/L (3.5-5.0); eGFR CKD-EPI 17.8 (>60)
[2024-01-08] MEDS: Lactated Ringers 1000 ml BAG 250 ML IV ONE (09:18)
[2024-01-08] MEDS ORDERED: NS 0.45% 1000 ml BAG 1,000 ML IV SCH (10:00)
[2024-01-08] MEDS: NS 0.45% IV SCH (10:43)
[2024-01-08] MEDS: NS 0.45% 1000 ml BAG 1,000 ML IV SCH (11:17)
[2024-01-08 12:13] LABS: C Reactive Protein 6.76 mg/L (<8.01)
[2024-01-08 12:46] LABS: Hepatitis B Surface Ab Not Immune (Immune); Hepatitis C Antibody Negative (Negative)
[2024-01-08 12:55] LABS: UR Microalbumin (mg/L) 330.6 mg/L; Urine Creatinine 73.06 mg/dL; Urine Microalbumin/Creatinine 452.5 mcg/mg (<31)
[2024-01-08] MEDS: diazePAM INJ CARPUJECT 5 MG/ML SYRINGE IV ONE (14:01)
[2024-01-08] MEDS ORDERED: Polyethylene Glycol 3350 17 GM PACKET PO PRN (14:41)
[2024-01-08] MEDS ORDERED: Magnesium Hydroxide LIQ 30 ML UDC PO PRN (14:41)
[2024-01-08] MEDS ORDERED: Senna TAB 8.6 mg TAB PO PRN (14:41)
[2024-01-08] MEDS ORDERED: Haloperidol 5 mg/ml SDV IV/IM 5 MG/ML AMP IV SLOW PU ONE (14:42)
[2024-01-08] MEDS: Magnesium Hydroxide LIQ 30 ML UDC PO SCH (21:14)
[2024-01-08] MEDS: Haloperidol 5 mg/ml SDV IV/IM 5 MG/ML AMP IV SLOW PU ONE (21:48)
[2024-01-08 22:09] LABS: Hepatitis B Surface Antigen Nonreactive (Nonreactive)
[2024-01-09 06:49] LABS: Calcium 8.4 mg/dL (8.6-10.3); Creatinine, Serum 3.49 mg/dL (0.67-1.17); Magnesium 2.1 mg/dL (1.9-2.7); Phosphorus 4.7 mg/dL (2.5-5.0); Potassium 4.2 mmol/L (3.5-5.0)
[2024-01-09 08:45] LABS: Rapid COVID-19 Molecular Undetected (Undetected)
[2024-01-09 10:19] VITALS: BP 110/58
[2024-01-09 15:13] LABS: Complement C3 57 mg/dL (75 - 175)
[2024-01-09 15:58] LABS: Lambda Free Light Chain, S 7.31 mg/dL
[2024-01-10 01:26] LABS: HIV 4th Generation Nonreactive (Nonreactive)
[2024-01-13 08:30] LABS: PLA2R, Immunofluorescence, S Negative (Negative)
== END 2024-01-09 13:00 | DRG 897 ==
LOC: ED 16:19 → EDHOLD 16:19 → SUATTDRO 12-31 02:35 → MED 12-31 05:25 → SUATTDRO 12-31 11:32
PROVIDERS: ADMIT Internal Medicine; ATTEND Student in an Organized Health Care Education/Training Program

== ENCOUNTER 2024-01-23 10:03 | Inpatient (IN) ==
[2024-01-23 12:39] LABS: ABS Lymphocytes 0.2 10^3/uL (1.0-4.8); ABS Neutrophils 14.8 10^3/uL (1.5-7.6); Hematocrit 33.4 % (38-53); Hemoglobin 11.3 g/dL (13.2-16.3); Lymphocyte % 1.1 %; Mean Corpuscular Hemoglobin 30.8 pg (27-33); Mean Corpuscular Hgb Conc 33.9 g/dL (31-36); Mean Corpuscular Volume 90.8 fL (80-97); Mean Platelet Volume 8.4 fL (7.5-11.2); Platelet Count 149 10^3/uL (150-450); Red Blood Count 3.68 10^6/uL (4.06-5.63); Red Cell Distribution Width 13.7 % (12-17)
[2024-01-23 12:45] LABS: INR 1.31 (0.83-1.13)
[2024-01-23 13:06] LABS: ALT 16 U/L (7-52); AST 27 U/L (13-39); Albumin 3.5 g/dL (3.2-5.2); Alcohol, S < 13 mg/dL (<13); Alkaline Phosphatase 41 U/L (35-149); Anion Gap 18 mmol/L (2-16); Blood Urea Nitrogen 64 mg/dL (6-24); C Reactive Protein 221.55 mg/L (<8.01); CO2 Carbon Dioxide 20 mmol/L (22-32); Calcium 8.7 mg/dL (8.6-10.3); Chloride 104 mmol/L (101-111); Creatinine, Serum 4.45 mg/dL (0.67-1.17); Globulin 3.5 g/dL (2-4); Glucose 159 mg/dL (70-100); Sodium 142 mmol/L (135-145); Total Bilirubin 0.4 mg/dL (0.2-1.0); eGFR CKD-EPI 13.4 (>60)
[2024-01-23] MEDS: Lactated Ringers 1000 ml BAG 1,000 ML IV ONE ×3 (13:14→18:14)
[2024-01-23] MEDS: Piperacillin/Tazobac 3.375 BAG 3.375 GM/100 ML BAG IV ONE (13:39)
[2024-01-23 15:44] LABS: Urine Appearance Extra Turbid; Urine Bilirubin Negative (Negative); Urine Blood 3+ (Negative); Urine Glucose Negative (Negative); Urine Ketones Negative (Negative); Urine Nitrite 1+ (Negative); Urine Protein 2+ (>=100 mg/dL) (Negative); Urine Urobilinogen Negative (Negative)
[2024-01-23 15:51] LABS: Urine Bacteria 3+ /HPF (Absent); Urine Red Blood Cell 3+(>10/hpf) /HPF (0-Trace); Urine Squamous Epithelial Cell Present /HPF (Absent); Urine White Blood Cell 3+(>20/hpf) /HPF (0-Trace)
[2024-01-23 15:53] LABS: Urine Color Light-Yellow
[2024-01-23] MEDS ORDERED: Zosyn per Pharmacy NOTE FOLLOW UP SCH (18:00)
[2024-01-23] MEDS ORDERED: Vancomycin per Pharmacy 1 EA NOTE FOLLOW UP SCH (18:00)
[2024-01-23] MEDS: Vancomycin 1,000 MG in NS 0.9% 250 ml 250 ML IVPB ONE (18:13)
[2024-01-23 18:14] LABS: PSA Screen Ultra Sensitive 40.678 ng/mL (0-4.000)
[2024-01-23] MEDS: ZOSYN 3.375 GM Q12H per EXTENDED INFUSION IV SCH (20:18)
[2024-01-23] MEDS: Heparin 5000 UNITS/ML 1 mL VIAL SUBCUT SCH (22:00)
[2024-01-24 04:22] LABS: Hematocrit 26.5 % (38-53); Hemoglobin 9.2 g/dL (13.2-16.3); Mean Corpuscular Hemoglobin 30.9 pg (27-33); Mean Corpuscular Hgb Conc 34.7 g/dL (31-36); Mean Corpuscular Volume 89.2 fL (80-97); Mean Platelet Volume 8.3 fL (7.5-11.2); Platelet Count 110 10^3/uL (150-450); Red Blood Count 2.98 10^6/uL (4.06-5.63); Red Cell Distribution Width 13.5 % (12-17); White Blood Count 11.2 10^3/uL (3.6-10.2)
[2024-01-24 04:30] LABS: Activated Partial Thrombo Time 31.4 seconds (26.0-38.0); INR 1.14 (0.83-1.13)
[2024-01-24 05:15] LABS: Calcium 7.4 mg/dL (8.6-10.3); Creatinine, Serum 3.7 mg/dL (0.67-1.17); Magnesium 1.4 mg/dL (1.9-2.7); Phosphorus 2.9 mg/dL (2.5-5.0); Potassium 4.3 mmol/L (3.5-5.0); Vancomycin Random 12.2 mcg/mL; eGFR CKD-EPI 16.7 (>60)
[2024-01-24 05:30] LABS: TSH Ultra Thyroid Stim Horm 2.13 mcIU/mL (0.34-5.60)
[2024-01-24] MEDS: Vancomycin Random Level NOTE FOLLOW UP ONE (08:49)
[2024-01-24] MEDS: Magnesium Sulf 4 GM/100 ML IV 4,000 MG/100 ML BAG IVPB ONE (09:18)
[2024-01-24] MEDS: Vancomycin 500 MG in NS 0.9% 250 ML IVPB ONE (15:09)
[2024-01-25 06:48] LABS: Hematocrit 27.2 % (38-53); Hemoglobin 9.6 g/dL (13.2-16.3); Mean Corpuscular Hemoglobin 31.4 pg (27-33); Mean Corpuscular Hgb Conc 35.2 g/dL (31-36); Mean Corpuscular Volume 89.2 fL (80-97); Red Blood Count 3.05 10^6/uL (4.06-5.63); Red Cell Distribution Width 13.5 % (12-17); White Blood Count 6.3 10^3/uL (3.6-10.2)
[2024-01-25 06:55] LABS: ABS Lymphocytes 0.6 10^3/uL (1.0-4.8); ABS Monocytes 0.5 10^3/uL (0.0-1.1); ABS Neutrophils 5.1 10^3/uL (1.5-7.6); Eosinophil % 0.6 %; Lymphocyte % 10.3 %; Mean Platelet Volume 8.5 fL (7.5-11.2); Nucleated Red Blood Cells % 0.1 %/100WBC (0.0-0.8); Platelet Count 96 10^3/uL (150-450)
[2024-01-25 07:05] LABS: Creatinine, Serum 3.05 mg/dL (0.67-1.17); Magnesium 2.2 mg/dL (1.9-2.7); Phosphorus 2.7 mg/dL (2.5-5.0); Potassium 3.9 mmol/L (3.5-5.0); eGFR CKD-EPI 21.1 (>60)
[2024-01-25] MEDS: Vancomycin Random Level NOTE FOLLOW UP ONE (09:58)
[2024-01-25] MEDS: Vancomycin 500 MG in NS 0.9% 250 ML IVPB ONE (09:58)
[2024-01-25] MEDS: [UNRECOGNIZED DRUG - OTHER] IVPB SCH (14:17)
[2024-01-25] MEDS: CEFAZOLIN 1 GM IVPB SCH (14:17)
[2024-01-26] MEDS ORDERED: Vancomycin Random Level NOTE FOLLOW UP ONE (06:00)
[2024-01-26 06:04] LABS: Hemoglobin 10.4 g/dL (13.2-16.3); Mean Corpuscular Hemoglobin 30.9 pg (27-33); Mean Corpuscular Hgb Conc 34.7 g/dL (31-36); Mean Corpuscular Volume 89.2 fL (80-97); Platelet Count 105 10^3/uL (150-450); Red Blood Count 3.37 10^6/uL (4.06-5.63); Red Cell Distribution Width 13.8 % (12-17); White Blood Count 5.3 10^3/uL (3.6-10.2)
[2024-01-26 06:33] LABS: Calcium 7.2 mg/dL (8.6-10.3); Creatinine, Serum 2.83 mg/dL (0.67-1.17); eGFR CKD-EPI 23.1 (>60)
[2024-01-26] MEDS: Ondansetron 4 mg VIAL 2 MG/ML 2 ml VIAL IV PRN (21:53)
[2024-01-27 06:25] LABS: Calcium 7.3 mg/dL (8.6-10.3); Creatinine, Serum 2.3 mg/dL (0.67-1.17); Potassium 3.8 mmol/L (3.5-5.0); eGFR CKD-EPI 29.6 (>60)
[2024-01-27] MEDS: Potassium Chlor 20 meq TAB.ER PO ONE (10:50)
[2024-01-27] MEDS ORDERED: Naloxone 0.4 mg VIAL 0.4 mg/ml 1 ml VIAL ONE (12:06)
[2024-01-27] MEDS ORDERED: Midazolam 5 mg/5 ml VIAL 1 mg/ml 5 ml VIAL (5 mg) ONE (12:06)
[2024-01-27] MEDS ORDERED: fentaNYL 100 mcg/2 ml 50 MCG/ML VIAL ONE (12:06)
[2024-01-27] MEDS ORDERED: Flumazenil 0.5 mg/5 ml 0.1 MG/ML 5 ml VIAL ONE (12:07)
[2024-01-28 08:06] LABS: Calcium 7.1 mg/dL (8.6-10.3); Creatinine, Serum 2.27 mg/dL (0.67-1.17); Magnesium 1.7 mg/dL (1.9-2.7); Potassium 4.4 mmol/L (3.5-5.0); eGFR CKD-EPI 30.1 (>60)
[2024-01-28] MEDS: Magnesium Sulf 4 GM/100 ML IV 4,000 MG/100 ML BAG IVPB ONE (09:18)
[2024-01-28] MEDS: ceFAZolin 2 GM PREMIX 2 GM/50 ML BAG IV SCH (12:50)
[2024-01-29] MEDS: Magnesium Sulf 4 GM/100 ML IV 4,000 MG/100 ML BAG IVPB ONE (09:06)
[2024-01-29 10:17] VITALS: BP 133/71
[2024-01-29 11:01] LABS: Rapid COVID-19 Molecular Undetected (Undetected)
== END 2024-01-29 11:50 | DRG 871 ==
LOC: ED 10:03 → EDHOLD 17:15 → SUATTDRO 17:15 → SSU 01-24 13:41 → MED 01-26 16:30
PROVIDERS: ADMIT Internal Medicine; ATTEND Internal Medicine

== ENCOUNTER 2024-06-13 14:26 | Inpatient (IN) ==
[2024-06-13 15:30] LABS: ABS Basophils 0.1 10^3/uL (0.0-0.1); ABS Lymphocytes 0.5 10^3/uL (1.0-4.8); ABS Monocytes 0.8 10^3/uL (0.0-1.1); ABS Neutrophils 7.8 10^3/uL (1.5-7.6); Hematocrit 38.8 % (38-53); Hemoglobin 13.6 g/dL (13.2-16.3); Lymphocyte % 5.6 %; Mean Corpuscular Hemoglobin 30.2 pg (27-33); Mean Corpuscular Hgb Conc 34.9 g/dL (31-36); Mean Corpuscular Volume 86.5 fL (80-97); Platelet Count 210 10^3/uL (150-450); Red Blood Count 4.49 10^6/uL (4.06-5.63); Red Cell Distribution Width 15.9 % (12-17); White Blood Count 9.1 10^3/uL (3.6-10.2)
[2024-06-13 16:21] LABS: ALT 53 U/L (7-52); Albumin 4.1 g/dL (3.2-5.2); Albumin/Globulin Ratio 1.1 (1-3); Alcohol, S 72 mg/dL (<13); Alkaline Phosphatase 58 U/L (35-149); Anion Gap 15 mmol/L (2-16); Blood Urea Nitrogen 15 mg/dL (6-24); CO2 Carbon Dioxide 24 mmol/L (22-32); Calcium 9.6 mg/dL (8.6-10.3); Chloride 81 mmol/L (101-111); Creatinine, Serum 1.66 mg/dL (0.67-1.17); Globulin 3.9 g/dL (2-4); Glucose 106 mg/dL (70-100); Sodium 120 mmol/L (135-145); Total Bilirubin 0.9 mg/dL (0.2-1.0); eGFR CKD-EPI 43.5 (>60)
[2024-06-13] MEDS: Thiamine 100 MG/ML 2 ml VIAL 100 MG, Folic Acid IV 1 MG, Multiple Vitamin IV ADULT 10 M... IV ONE (18:07)
[2024-06-13] MEDS: LORazepam 2 mg VIAL 1 ml IV PUSH SCH ×2 (18:07→20:27)
[2024-06-13 18:31] LABS: Urine Appearance Turbid; Urine Bilirubin Negative (Negative); Urine Blood 2+ (Negative); Urine Color Light-Yellow; Urine Glucose Negative (Negative); Urine Ketones Negative (Negative); Urine Nitrite 1+ (Negative); Urine Protein 1+ (>=30 mg/dL) (Negative); Urine Specific Gravity 1.007 (1.002-1.030); Urine Urobilinogen Negative (Negative)
[2024-06-13 18:38] LABS: Urine Bacteria 1+ /HPF (Absent); Urine Red Blood Cell 3+(>10/hpf) /HPF (0-Trace); Urine White Blood Cell 3+(>20/hpf) /HPF (0-Trace)
[2024-06-13 18:51] LABS: Calcium 9.1 mg/dL (8.6-10.3); Creatinine, Serum 1.61 mg/dL (0.67-1.17); Potassium 3.8 mmol/L (3.5-5.0); eGFR CKD-EPI 45.2 (>60)
[2024-06-13] MEDS: Thiamine 100 MG/ML 2 ml VIAL (200 mg) IM ONE (19:58)
[2024-06-13] MEDS ORDERED: Lorazepam PYXIS KEY PRN (19:58)
[2024-06-13] MEDS ORDERED: Senna TAB 8.6 mg TAB PO PRN (20:22)
[2024-06-13] MEDS: Enoxaparin 40 MG/0.4 ML SYR SUBCUT SCH (21:31)
[2024-06-14 00:37] LABS: Calcium 8.6 mg/dL (8.6-10.3); Creatinine, Serum 1.67 mg/dL (0.67-1.17); Potassium 3.9 mmol/L (3.5-5.0); eGFR CKD-EPI 43.2 (>60)
[2024-06-14 00:54] LABS: Osmolality Serum 275 mOsm/kg (275-295)
[2024-06-14 00:55] LABS: Urine Osmo < 100 mOsm/kg (150-1150)
[2024-06-14] MEDS: NS 0.45% 1000 ml BAG 1,000 ML IV SCH (01:48)
[2024-06-14 05:47] LABS: ABS Lymphocytes 0.5 10^3/uL (1.0-4.8); ABS Monocytes 0.7 10^3/uL (0.0-1.1); ABS Neutrophils 4.8 10^3/uL (1.5-7.6); Eosinophil % 0.1 %; Hematocrit 35.4 % (38-53); Hemoglobin 12.1 g/dL (13.2-16.3); Lymphocyte % 8.4 %; Mean Corpuscular Hgb Conc 34.2 g/dL (31-36); Mean Corpuscular Volume 87.6 fL (80-97); Mean Platelet Volume 7.5 fL (7.5-11.2); Nucleated Red Blood Cells % 0.1 %/100WBC (0.0-0.8); Platelet Count 155 10^3/uL (150-450); Red Blood Count 4.04 10^6/uL (4.06-5.63); Red Cell Distribution Width 15.6 % (12-17)
[2024-06-14 06:07] LABS: ALT 37 U/L (7-52); AST 47 U/L (13-39); Albumin 3.2 g/dL (3.2-5.2); Albumin/Globulin Ratio 1.1 (1-3); Alkaline Phosphatase 46 U/L (35-149); Anion Gap 5 mmol/L (2-16); Blood Urea Nitrogen 20 mg/dL (6-24); CO2 Carbon Dioxide 25 mmol/L (22-32); Calcium 8.1 mg/dL (8.6-10.3); Chloride 96 mmol/L (101-111); Creatinine, Serum 1.74 mg/dL (0.67-1.17); Globulin 2.9 g/dL (2-4); Glucose 105 mg/dL (70-100); Potassium 3.8 mmol/L (3.5-5.0); Sodium 126 mmol/L (135-145); Total Protein 6.1 g/dL (6.4-8.9); eGFR CKD-EPI 41.1 (>60)
[2024-06-14 06:41] LABS: Folate > 20.00 ng/mL (5.90-24.80); Vitamin B12 342 pg/mL (180-914)
[2024-06-14] MEDS: Multivitamins/Minerals TAB PO SCH (08:06)
[2024-06-14] MEDS: Ondansetron 4 mg VIAL 2 MG/ML 2 ml VIAL IV PRN (12:17)
[2024-06-14] MEDS: NS 0.9% 1000 ml BAG 1,000 ML IV SCH (17:57)
[2024-06-14 20:10] LABS: Calcium 8.2 mg/dL (8.6-10.3); Creatinine, Serum 1.74 mg/dL (0.67-1.17); Potassium 3.6 mmol/L (3.5-5.0); eGFR CKD-EPI 41.1 (>60)
[2024-06-15 12:25] LABS: ABS Lymphocytes 0.4 10^3/uL (1.0-4.8); ABS Monocytes 0.4 10^3/uL (0.0-1.1); ABS Neutrophils 4.5 10^3/uL (1.5-7.6); Eosinophil % 0.2 %; Hematocrit 35.7 % (38-53); Hemoglobin 12.1 g/dL (13.2-16.3); Mean Corpuscular Hgb Conc 33.8 g/dL (31-36); Mean Corpuscular Volume 88.7 fL (80-97); Mean Platelet Volume 7.4 fL (7.5-11.2); Platelet Count 158 10^3/uL (150-450); Red Blood Count 4.02 10^6/uL (4.06-5.63); Red Cell Distribution Width 16.2 % (12-17); White Blood Count 5.4 10^3/uL (3.6-10.2)
[2024-06-15 12:42] LABS: Calcium 7.9 mg/dL (8.6-10.3); Creatinine, Serum 1.78 mg/dL (0.67-1.17); Potassium 3.5 mmol/L (3.5-5.0)
[2024-06-16 15:03] LABS: ABS Lymphocytes 0.5 10^3/uL (1.0-4.8); ABS Monocytes 0.9 10^3/uL (0.0-1.1); Eosinophil % 0.2 %; Hematocrit 36.1 % (38-53); Hemoglobin 12.2 g/dL (13.2-16.3); Lymphocyte % 8.1 %; Mean Corpuscular Hgb Conc 33.8 g/dL (31-36); Mean Corpuscular Volume 88.7 fL (80-97); Mean Platelet Volume 6.9 fL (7.5-11.2); Platelet Count 167 10^3/uL (150-450); Red Blood Count 4.07 10^6/uL (4.06-5.63); Red Cell Distribution Width 16.1 % (12-17); White Blood Count 6.5 10^3/uL (3.6-10.2)
[2024-06-16 16:07] LABS: Calcium 8.7 mg/dL (8.6-10.3); Creatinine, Serum 1.87 mg/dL (0.67-1.17); Potassium 3.7 mmol/L (3.5-5.0); eGFR CKD-EPI 37.7 (>60)
[2024-06-16] MEDS: Magnesium Sulfate 2 gm BAG 2 GM/50 ML BAG IVPB ONE (18:52)
[2024-06-17 05:57] LABS: ABS Lymphocytes 0.5 10^3/uL (1.0-4.8); ABS Monocytes 1.2 10^3/uL (0.0-1.1); ABS Neutrophils 5.3 10^3/uL (1.5-7.6); Eosinophil % 0.3 %; Hematocrit 36.1 % (38-53); Hemoglobin 12.3 g/dL (13.2-16.3); Lymphocyte % 6.7 %; Mean Corpuscular Hemoglobin 29.8 pg (27-33); Mean Corpuscular Hgb Conc 33.9 g/dL (31-36); Mean Corpuscular Volume 87.7 fL (80-97); Mean Platelet Volume 7.1 fL (7.5-11.2); Platelet Count 182 10^3/uL (150-450); Red Blood Count 4.12 10^6/uL (4.06-5.63); Red Cell Distribution Width 15.7 % (12-17); White Blood Count 7.1 10^3/uL (3.6-10.2)
[2024-06-17 06:12] LABS: Calcium 8.3 mg/dL (8.6-10.3); Creatinine, Serum 1.9 mg/dL (0.67-1.17); Magnesium 2.3 mg/dL (1.9-2.7); Potassium 3.5 mmol/L (3.5-5.0)
[2024-06-17] MEDS ORDERED: Zosyn per Pharmacy NOTE FOLLOW UP SCH (08:00)
[2024-06-17] MEDS: Piperacillin/Tazobac 3.375 BAG 3.375 GM/100 ML BAG IV ONE (08:26)
[2024-06-17] MEDS: Potassium Chlor 20 meq TAB.ER PO ONE (10:48)
[2024-06-17] MEDS: ZOSYN 3.375 GM Q8H per EXTENDED INFUSION IV SCH (11:12)
[2024-06-18 09:27] VITALS: BP 121/69
== END 2024-06-18 12:49 | disposition home health service (06) | DRG 897 ==
LOC: EDHOLD 14:26 → ED 14:26 → SUATTDRO 19:31 → MED 06-14 00:38
PROVIDERS: ADMIT Hospitalist; ATTEND Student in an Organized Health Care Education/Training Program

== ENCOUNTER 2024-08-18 15:11 | Inpatient (IN) ==
[2024-08-18 19:04] LABS: ABS Basophils 0.1 10^3/uL (0.0-0.1); ABS Eosinophils 0.1 10^3/uL (0.0-0.5); ABS Lymphocytes 0.8 10^3/uL (1.0-4.8); ABS Monocytes 0.6 10^3/uL (0.0-1.1); Eosinophil % 2.7 %; Hematocrit 34.7 % (38-53); Hemoglobin 11.8 g/dL (13.2-16.3); Lymphocyte % 17.7 %; Mean Corpuscular Hemoglobin 31.3 pg (27-33); Mean Corpuscular Hgb Conc 33.9 g/dL (31-36); Mean Corpuscular Volume 92.2 fL (80-97); Mean Platelet Volume 6.7 fL (7.5-11.2); Nucleated Red Blood Cells % 0.1 %/100WBC (0.0-0.8); Platelet Count 230 10^3/uL (150-450); Red Blood Count 3.76 10^6/uL (4.06-5.63); Red Cell Distribution Width 14.5 % (12-17); White Blood Count 4.6 10^3/uL (3.6-10.2)
[2024-08-18 19:33] LABS: Albumin 3.7 g/dL (3.2-5.2); C Reactive Protein 23.97 mg/L (<8.01); Calcium 8.8 mg/dL (8.6-10.3); Creatinine, Serum 1.83 mg/dL (0.67-1.17); Globulin 3.8 g/dL (2-4); Potassium 4.1 mmol/L (3.5-5.0); Total Bilirubin 0.3 mg/dL (0.2-1.0); Total Protein 7.5 g/dL (6.4-8.9); eGFR CKD-EPI 38.7 (>60)
[2024-08-18] MEDS: cefTRIAXone 1 gm/50 mL D5W 1 GM/50 ML BAG IV ONE (20:13)
[2024-08-18] MEDS: Midazolam 5 mg/5 ml VIAL 1 mg/ml 5 ml VIAL (5 mg) IV SLOW PU ONE (21:39)
[2024-08-18] MEDS ORDERED: Midazolam 5 mg/5 ml VIAL 1 mg/ml 5 ml VIAL (5 mg) ONE (21:52)
[2024-08-18] MEDS: diazePAM INJ CARPUJECT 5 MG/ML SYRINGE IV ONE (23:55)
[2024-08-19 00:04] LABS: Osmolality Serum 298 mOsm/kg (275-295)
[2024-08-19] MEDS: Thiamine 100 MG/ML 2 ml VIAL (200 mg) IM ONE (00:33)
[2024-08-19 01:51] LABS: Urine Appearance Clear; Urine Bilirubin Negative (Negative); Urine Blood 1+ (Negative); Urine Color Colorless; Urine Glucose Negative (Negative); Urine Ketones Negative (Negative); Urine Nitrite Negative (Negative); Urine Protein 1+ (>=30 mg/dL) (Negative); Urine Specific Gravity 1.005 (1.002-1.030); Urine Urobilinogen Negative (Negative); Urine pH 5.5 (5.0-8.0)
[2024-08-19 01:52] LABS: Urine Osmo 153 mOsm/kg (150-1150)
[2024-08-19 01:58] LABS: Urine Bacteria Absent /HPF (Absent); Urine Red Blood Cell 1+(3-5/hpf) /HPF (0-Trace); Urine Squamous Epithelial Cell Present /HPF (Absent); Urine White Blood Cell 1+(6-10/hpf) /HPF (0-Trace)
[2024-08-19] MEDS: Lactated Ringers 1000 ml BAG 1,000 ML IV SCH (03:15)
[2024-08-19] MEDS: Enoxaparin 40 MG/0.4 ML SYR SUBCUT SCH (05:43)
[2024-08-19 07:05] LABS: ABS Basophils 0.1 10^3/uL (0.0-0.1); ABS Eosinophils 0.1 10^3/uL (0.0-0.5); ABS Lymphocytes 0.6 10^3/uL (1.0-4.8); ABS Monocytes 0.6 10^3/uL (0.0-1.1); Eosinophil % 2.5 %; Hematocrit 35.3 % (38-53); Lymphocyte % 13.4 %; Mean Corpuscular Hemoglobin 31.5 pg (27-33); Mean Corpuscular Volume 92.9 fL (80-97); Mean Platelet Volume 6.9 fL (7.5-11.2); Platelet Count 231 10^3/uL (150-450); Red Cell Distribution Width 14.6 % (12-17); White Blood Count 4.3 10^3/uL (3.6-10.2)
[2024-08-19 07:29] LABS: Calcium 8.6 mg/dL (8.6-10.3); Creatinine, Serum 1.78 mg/dL (0.67-1.17); Potassium 4.3 mmol/L (3.5-5.0)
[2024-08-19 07:50] LABS: PSA Screen Ultra Sensitive 10.661 ng/mL (0-4.000)
[2024-08-19] MEDS: Aspirin EC 81 mg TAB.EC (enteric coated) PO SCH (08:51)
[2024-08-19] MEDS ORDERED: Vancomycin per Pharmacy 1 EA NOTE FOLLOW UP PRN (15:00)
[2024-08-19] MEDS: LORazepam 2 mg VIAL 1 ml IV PUSH SCH (17:06)
[2024-08-19] MEDS: Vancomycin 1,250 MG in NS 0.9% 250 ml 250 ML IVPB ONE (17:07)
[2024-08-20 07:05] LABS: ABS Eosinophils 0.1 10^3/uL (0.0-0.5); ABS Lymphocytes 0.6 10^3/uL (1.0-4.8); ABS Monocytes 0.6 10^3/uL (0.0-1.1); ABS Neutrophils 3.1 10^3/uL (1.5-7.6); Hematocrit 35.2 % (38-53); Lymphocyte % 13.9 %; Mean Corpuscular Hemoglobin 31.5 pg (27-33); Mean Corpuscular Volume 92.7 fL (80-97); Mean Platelet Volume 6.8 fL (7.5-11.2); Platelet Count 221 10^3/uL (150-450); Red Cell Distribution Width 14.6 % (12-17); White Blood Count 4.6 10^3/uL (3.6-10.2)
[2024-08-20 07:22] LABS: Calcium 8.6 mg/dL (8.6-10.3); Creatinine, Serum 1.95 mg/dL (0.67-1.17); Potassium 4.4 mmol/L (3.5-5.0); eGFR CKD-EPI 35.9 (>60)
[2024-08-20] MEDS: Vancomycin 1000 MG in NS 0.9% 250 ML IVPB SCH (17:21)
[2024-08-21 06:43] LABS: Calcium 9.1 mg/dL (8.6-10.3); Creatinine, Serum 2.06 mg/dL (0.67-1.17); Potassium 4.2 mmol/L (3.5-5.0); eGFR CKD-EPI 33.6 (>60)
[2024-08-21 07:47] LABS: ABS Basophils 0.1 10^3/uL (0.0-0.1); ABS Eosinophils 0.2 10^3/uL (0.0-0.5); ABS Lymphocytes 0.8 10^3/uL (1.0-4.8); ABS Monocytes 0.6 10^3/uL (0.0-1.1); ABS Neutrophils 2.7 10^3/uL (1.5-7.6); Eosinophil % 5.3 %; Hematocrit 36.3 % (38-53); Hemoglobin 12.3 g/dL (13.2-16.3); Lymphocyte % 18.5 %; Mean Corpuscular Hemoglobin 31.4 pg (27-33); Mean Corpuscular Hgb Conc 33.8 g/dL (31-36); Mean Corpuscular Volume 92.7 fL (80-97); Nucleated Red Blood Cells % 0.1 %/100WBC (0.0-0.8); Platelet Count 260 10^3/uL (150-450); Red Blood Count 3.92 10^6/uL (4.06-5.63); Red Cell Distribution Width 14.7 % (12-17); White Blood Count 4.4 10^3/uL (3.6-10.2)
[2024-08-21] MEDS: NS 0.9% 1000 ml BAG 1,000 ML IV SCH (09:12)
[2024-08-21 15:57] LABS: C Reactive Protein 6.23 mg/L (<8.01)
[2024-08-21 17:07] LABS: Urine Appearance Clear; Urine Bilirubin Negative (Negative); Urine Blood Negative (Negative); Urine Color Colorless; Urine Glucose Negative (Negative); Urine Ketones Negative (Negative); Urine Nitrite Negative (Negative); Urine Protein Negative (Negative); Urine Specific Gravity 1.008 (1.002-1.030); Urine Urobilinogen Negative (Negative); Urine pH 6.5 (5.0-8.0)
[2024-08-21 17:12] LABS: Urine Bacteria 1+ /HPF (Absent); Urine Red Blood Cell Trace(0-2/hpf) /HPF (0-Trace); Urine White Blood Cell Trace(0-5/hpf) /HPF (0-Trace)
[2024-08-22] MEDS: Vancomycin Trough Check NOTE FOLLOW UP ONE (16:58)
[2024-08-22 17:19] LABS: Creatinine, Serum 2.33 mg/dL (0.67-1.17)
[2024-08-23] MEDS: Metoprolol Tartrate 5 mg VIAL 5 ml VIAL (1 mg/ml) IV PRN (02:03)
[2024-08-23 06:30] LABS: ABS Basophils 0.1 10^3/uL (0.0-0.1); ABS Eosinophils 0.3 10^3/uL (0.0-0.5); ABS Lymphocytes 0.9 10^3/uL (1.0-4.8); ABS Monocytes 0.7 10^3/uL (0.0-1.1); ABS Neutrophils 3.3 10^3/uL (1.5-7.6); ABS Nucleated RBC 0.01 10^3/ul; Hematocrit 37.6 % (38-53); Hemoglobin 12.5 g/dL (13.2-16.3); Lymphocyte % 16.9 %; Mean Corpuscular Hemoglobin 31.4 pg (27-33); Mean Corpuscular Hgb Conc 33.3 g/dL (31-36); Mean Corpuscular Volume 94.1 fL (80-97); Mean Platelet Volume 6.7 fL (7.5-11.2); Nucleated Red Blood Cells % 0.3 %/100WBC (0.0-0.8); Platelet Count 235 10^3/uL (150-450); Red Cell Distribution Width 14.6 % (12-17); White Blood Count 5.4 10^3/uL (3.6-10.2)
[2024-08-23 06:55] LABS: Creatinine, Serum 2.67 mg/dL (0.67-1.17); Potassium 4.9 mmol/L (3.5-5.0); eGFR CKD-EPI 24.6 (>60)
[2024-08-23] MEDS ORDERED: Naloxone 0.4 mg VIAL 0.4 mg/ml 1 ml VIAL IV PRN (11:38)
[2024-08-23] MEDS ORDERED: fentaNYL 100 mcg/2 ml 50 MCG/ML VIAL ONE (14:15)
[2024-08-23] MEDS: fentaNYL 100 mcg/2 ml 50 MCG/ML VIAL IV PRN (14:16)
[2024-08-23] MEDS ORDERED: Naloxone Nasal Spray 4 MG/0.1 ML NASAL.SPR INTRANASAL PRN (15:46)
[2024-08-23] MEDS: NS 0.9% 1000 ml BAG 1,000 ML IV SCH (17:11)
[2024-08-23] MEDS: Neomycin/Polym/Bacit TOP OINT 15 GM TOPICAL SCH (17:12)
[2024-08-23] MEDS: GENTAMICIN ADULT IVPB ONE (17:12)
[2024-08-23] MEDS: NS 0.9% IVPB ONE (17:12)
[2024-08-23] MEDS: Ampicillin ADVAN 2 GM in NS 0.9% 100 ML 100 ML IVPB ONE (18:33)
[2024-08-23] MEDS: Magnesium Hydroxide LIQ 30 ML UDC PO SCH (21:43)
[2024-08-24 09:46] LABS: ABS Basophils 0.1 10^3/uL (0.0-0.1); ABS Lymphocytes 0.6 10^3/uL (1.0-4.8); ABS Monocytes 0.4 10^3/uL (0.0-1.1); ABS Neutrophils 8.3 10^3/uL (1.5-7.6); Hematocrit 36.9 % (38-53); Hemoglobin 12.3 g/dL (13.2-16.3); Lymphocyte % 6.6 %; Mean Corpuscular Hgb Conc 33.3 g/dL (31-36); Mean Corpuscular Volume 93.1 fL (80-97); Mean Platelet Volume 6.8 fL (7.5-11.2); Platelet Count 304 10^3/uL (150-450); Red Blood Count 3.96 10^6/uL (4.06-5.63); White Blood Count 9.4 10^3/uL (3.6-10.2)
[2024-08-24 10:19] LABS: Calcium 8.7 mg/dL (8.6-10.3); Creatinine, Serum 2.75 mg/dL (0.67-1.17); Potassium 4.6 mmol/L (3.5-5.0); Vancomycin Random 24.1 mcg/mL; eGFR CKD-EPI 23.8 (>60)
[2024-08-24] MEDS: Ondansetron 4 mg VIAL 2 MG/ML 2 ml VIAL IV PRN (13:17)
[2024-08-24] MEDS: Vancomycin Random Level NOTE FOLLOW UP ONE (15:33)
[2024-08-24] MEDS: diazePAM INJ CARPUJECT 5 MG/ML SYRINGE IV ONE ×2 (16:40→17:01)
[2024-08-24] MEDS ORDERED: Vancomycin 750 MG in NS 0.9% 250 ML IVPB SCH (17:00)
[2024-08-24] MEDS: NS 0.9% 1000 ml BAG 1,000 ML IV SCH (18:42)
[2024-08-25 08:49] LABS: ABS Basophils 0.1 10^3/uL (0.0-0.1); ABS Lymphocytes 1.2 10^3/uL (1.0-4.8); ABS Monocytes 0.7 10^3/uL (0.0-1.1); ABS Neutrophils 5.8 10^3/uL (1.5-7.6); Eosinophil % 0.6 %; Hematocrit 36.8 % (38-53); Hemoglobin 12.3 g/dL (13.2-16.3); Lymphocyte % 15.7 %; Mean Corpuscular Hgb Conc 33.4 g/dL (31-36); Mean Corpuscular Volume 92.8 fL (80-97); Mean Platelet Volume 6.7 fL (7.5-11.2); Platelet Count 325 10^3/uL (150-450); Red Blood Count 3.97 10^6/uL (4.06-5.63); Red Cell Distribution Width 14.5 % (12-17); White Blood Count 7.9 10^3/uL (3.6-10.2)
[2024-08-25 09:27] VITALS: BP 145/78
[2024-08-25 09:36] LABS: Calcium 8.8 mg/dL (8.6-10.3); Creatinine, Serum 2.56 mg/dL (0.67-1.17); Potassium 4.3 mmol/L (3.5-5.0); eGFR CKD-EPI 25.9 (>60)
== END 2024-08-25 14:05 | disposition home or self-care (01) | DRG 666 ==
LOC: EDHOLD 15:11 → ED 15:11 → MEDTELE 08-19 01:30 → SUATTDRO 08-19 12:00 → SSU 08-23 15:34
PROVIDERS: ADMIT Internal Medicine; ATTEND Student in an Organized Health Care Education/Training Program